=== PATIENT | male | born 1975 | race Caucasian/White ===

== ENCOUNTER 2020-11-02 09:34 | Inpatient (IN) | payer BC ==
[2020-11-02 11:28] LABS: Amphetamine Screen,Urine Not Detected (NotDetected); Barbiturate Screen,Urine Not Detected (NotDetected); Benzodiazepines Screen,Urine Not Detected (NotDetected); Cocaine Screen,Urine Not Detected (NotDetected); Methadone Screen, Urine Not Detected (NotDetected); Opiate Screen,Urine Not Detected (NotDetected); Oxycodone Screen, Urine Not Detected (NotDetected); Phencyclidine Screen,Urine Not Detected (NotDetected); Tricyclic Antidepressant,Urine Not Detected (NotDetected); Urn Cannabinoid Scrn Not Detected (NotDetected)
[2020-11-02] MEDS ORDERED: THIAMINE 100 MG/ML 2 ML VIAL IM STA (12:55)
[2020-11-02] MEDS ORDERED: LORazepam 2 MG/ML INJ IV PRN ×3 (12:55)
--- NOTE | 2020-11-02 15:04 | ED ---
Psych HPI <Allen Ceron - Last Filed: 11/02/20 19:47> - General Source: patient Mode of arrival: ambulatory <Cynthia Jon - Last Filed: 11/09/20 09:11> - General Chief Complaint: Psychiatric Symptoms Stated Complaint: EPS eval - History of Present Illness Initial Comments: Patient is a 45-year-old male who presents emergency department reporting depre ssion and suicidal ideations. Patient states he's been depressed for some time however never sought care. States he drinks alcohol daily. Normally drinks a fifth of vodka. Does admit to drinking this morning. States that he has become severely depressed over the past 3 days and does have thoughts of killing himself. Patient does not have a plan. Has never voiced is concerned to anyone. Denies any drug abuse. Did not attempt harm himself today. No other alleviating, precipitating or modifying factors (Cynthia Jon) - Related Data Previous Rx's Medication Instructions Recorded FLUoxetine HCL [PROzac] 40 mg PO DAILY 30 Days cap 11/04/20 Mirtazapine [Remeron] 7.5 mg PO HS PRN 30 Days tab 11/04/20 Allergies Allergy/AdvReac Type Severity Reaction Status Date / Time No Known Allergies Allergy Verified 11/02/20 10:18 Review of Systems ROS Other: All systems not noted in ROS Statement are negative. <CeronAllen - Last Filed: 11/02/20 19:47> ROS Other: All systems not noted in ROS Statement are negative. <Cynthia Jon - Last Filed: 11/09/20 09:11> ROS Statement: Those systems with pertinent positive or pertinent negative responses have been documented in the HPI. Past Medical History Past Medical History: No Reported History History of Any Multi-Drug Resistant Organisms: None Reported Past Surgical History: Appendectomy, Hernia Repair Past Psychological History: Depression Smoking Status: Never smoker Past Alcohol Use History: Abuse, Daily, Heavy Past Drug Use History: None Reported <Cynthia Jon - Last Filed: 11/09/20 09:11> General Exam Limitations: no limitations General appearance: alert, in no apparent distress Head exam: Present: atraumatic, normocephalic, normal inspection Eye exam: Present: normal appearance, PERRL, EOMI. Absent: scleral icterus, conjunctival injection, periorbital swelling ENT exam: Present: normal exam, mucous membranes moist Neck exam: Present: normal inspection. Absent: tenderness, meningismus, lymphadenopathy Respiratory exam: Present: normal lung sounds bilaterally. Absent: respiratory distress, wheezes, rales, rhonchi, stridor Cardiovascular Exam: Present: regular rate, normal rhythm, normal heart sounds. Absent: systolic murmur, diastolic murmur, rubs, gallop, clicks GI/Abdominal exam: Present: soft, normal bowel sounds. Absent: distended, tenderness, guarding, rebound, rigid Extremities exam: Present: normal inspection, full ROM, normal capillary refill. Absent: tenderness, pedal edema, joint swelling, calf tenderness Back exam: Present: normal inspection Neurological exam: Present: alert, oriented X3, CN II-XII intact Psychiatric exam: Present: depressed, suicidal ideation Skin exam: Present: warm, dry, intact, normal color. Absent: rash <Cynthia Jon - Last Filed: 11/09/20 09:11> Course Vital Signs 11/02/20 11/02/20 11/02/20 09:43 11:05 17:04 Temperature 98.2 F Pulse Rate 107 H 97 Respiratory 18 17 18 Rate Blood Pressure 151/94 170/17 O2 Sat by Pulse 93 L 98 Oximetry 11/02/20 18:34 Temperature Pulse Rate Respiratory 17 Rate Blood Pressure O2 Sat by Pulse Oximetry Medical Decision Making - Lab Data Result diagrams: 11/02/20 17:26 11/02/20 17:21 <Allen Ceron - Last Filed: 11/02/20 19:47> - Lab Data Result diagrams: 11/02/20 17:26 11/02/20 17:21 <Cynthia Jon - Last Filed: 11/09/20 09:11> - Medical Decision Making Patient was seen by mental health services with plan for admission (Allen Ceron) Upon arrival patient was placed into room 15. A thorough history and physical exam was performed. Patient does have an alcohol of 0.164. Patient will be sober at 2:30 for EPS evaluation (Cynthia Jon) - Lab Data Lab Results 11/02/20 11/02/20 11/02/20 Range/Units 09:59 10:55 17:21 WBC (3.8-10.6) k/uL RBC (4.30-5.90) m/uL Hgb (13.0-17.5) gm/dL Hct (39.0-53.0) % MCV (80.0-100.0) fL MCH (25.0-35.0) pg MCHC (31.0-37.0) g/dL RDW (11.5-15.5) % Plt Count (150-450) k/uL MPV Neutrophils % % Lymphocytes % % Monocytes % % Eosinophils % % Basophils % % Neutrophils # (1.3-7.7) k/uL Lymphocytes # (1.0-4.8) k/uL Monocytes # (0-1.0) k/uL Eosinophils # (0-0.7) k/uL Basophils # (0-0.2) k/uL Sodium 137 (137-145) mmol/L Potassium 3.7 (3.5-5.1) mmol/L Chloride 104 (98-107) mmol/L Carbon Dioxide 22 (22-30) mmol/L Anion Gap 11 mmol/L BUN 7 L (9-20) mg/dL Creatinine 0.69 (0.66-1.25) mg/dL Est GFR (CKD-EPI)AfAm >90 (>60 ml/min/1.73 sqM) Est GFR (CKD-EPI)NonAf >90 (>60 ml/min/1.73 sqM) Glucose 152 H (74-99) mg/dL Calcium 8.8 (8.4-10.2) mg/dL Total Bilirubin 0.8 (0.2-1.3) mg/dL AST 139 H (17-59) U/L ALT 141 H (4-49) U/L Alkaline Phosphatase 88 (38-126) U/L Total Protein 6.2 L (6.3-8.2) g/dL Albumin 3.7 (3.5-5.0) g/dL Urine Color Light Yellow Urine Appearance Clear (Clear) Urine pH 6.0 (5.0-8.0) Ur Specific [place] 1.005 (1.001-1.035) Urine Protein Negative (Negative) Urine Glucose (UA) Negative (Negative) Urine Ketones Negative (Negative) Urine Blood Negative (Negative) Urine Nitrite Negative (Negative) Urine Bilirubin Negative (Negative) Urine Urobilinogen <2.0 (<2.0) mg/dL Ur Leukocyte Esterase Negative (Negative) Urine Opiates Screen Not Detected (NotDetected) Ur Oxycodone Screen Not Detected (NotDetected) Urine Methadone Screen Not Detected (NotDetected) Ur Propoxyphene Screen Not Detected (NotDetected) Ur Barbiturates Screen Not Detected (NotDetected) U Tricyclic Antidepress Not Detected (NotDetected) Ur Phencyclidine Scrn Not Detected (NotDetected) Ur Amphetamines Screen Not Detected (NotDetected) U Methamphetamines Scrn Not Detected (NotDetected) U Benzodiazepines Scrn Not Detected (NotDetected) Urine Cocaine Screen Not Detected (NotDetected) U Marijuana (THC) Screen Not Detected (NotDetected) Coronavirus (PCR) (Not Detectd) 11/02/20 11/02/20 Range/Units 17:26 18:34 WBC 9.8 (3.8-10.6) k/uL RBC 4.78 (4.30-5.90) m/uL Hgb 16.4 (13.0-17.5) gm/dL Hct 47.0 (39.0-53.0) % MCV 98.4 (80.0-100.0) fL MCH 34.4 (25.0-35.0) pg MCHC 35.0 (31.0-37.0) g/dL RDW 12.0 (11.5-15.5) % Plt Count 252 (150-450) k/uL MPV 7.8 Neutrophils % 75 % Lymphocytes % 12 % Monocytes % 6 % Eosinophils % 5 % Basophils % 0 % Neutrophils # 7.3 (1.3-7.7) k/uL Lymphocytes # 1.2 (1.0-4.8) k/uL Monocytes # 0.6 (0-1.0) k/uL Eosinophils # 0.5 (0-0.7) k/uL Basophils # 0.0 (0-0.2) k/uL Sodium (137-145) mmol/L Potassium (3.5-5.1) mmol/L Chloride (98-107) mmol/L Carbon Dioxide (22-30) mmol/L Anion Gap mmol/L BUN (9-20) mg/dL Creatinine (0.66-1.25) mg/dL Est GFR (CKD-EPI)AfAm (>60 ml/min/1.73 sqM) Est GFR (CKD-EPI)NonAf (>60 ml/min/1.73 sqM) Glucose (74-99) mg/dL Calcium (8.4-10.2) mg/dL Total Bilirubin (0.2-1.3) mg/dL AST (17-59) U/L ALT (4-49) U/L Alkaline Phosphatase (38-126) U/L Total Protein (6.3-8.2) g/dL Albumin (3.5-5.0) g/dL Urine Color Urine Appearance (Clear) Urine pH (5.0-8.0) Ur Specific [place] (1.001-1.035) Urine Protein (Negative) Urine Glucose (UA) (Negative) Urine Ketones (Negative) Urine Blood (Negative) Urine Nitrite (Negative) Urine Bilirubin (Negative) Urine Urobilinogen (<2.0) mg/dL Ur Leukocyte Esterase (Negative) Urine Opiates Screen (NotDetected) Ur Oxycodone Screen (NotDetected) Urine Methadone Screen (NotDetected) Ur Propoxyphene Screen (NotDetected) Ur Barbiturates Screen (NotDetected) U Tricyclic Antidepress (NotDetected) Ur Phencyclidine Scrn (NotDetected) Ur Amphetamines Screen (NotDetected) U Methamphetamines Scrn (NotDetected) U Benzodiazepines Scrn (NotDetected) Urine Cocaine Screen (NotDetected) U Marijuana (THC) Screen (NotDetected) Coronavirus (PCR) Not Detected (Not Detectd) Disposition Is patient prescribed a controlled substance at d/c from ED?: No Decision Time: 19:48 <Allen Ceron - Last Filed: 11/02/20 19:47> <Cynthia Jon - Last Filed: 11/09/20 09:11> Clinical Impression: Depression Disposition: TRANSFER TO PSYCH HOSP/UNIT Condition: Stable
[2020-11-02 17:29] LABS: Basophils % (A) 0 %; Eosinophils # (A) 0.5 k/uL (0-0.7); Eosinophils % (A) 5 %; HGB 16.4 gm/dL (13.0-17.5); Lymphocytes # (A) 1.2 k/uL (1.0-4.8); Lymphocytes % (A) 12 %; MCH 34.4 pg (25.0-35.0); MCV 98.4 fL (80.0-100.0); Mean Platelet Volume 7.8; Monocytes # (A) 0.6 k/uL (0-1.0); Monocytes % (A) 6 %; Neutrophils # (A) 7.3 k/uL (1.3-7.7); Neutrophils % (A) 75 %; Platelet Count 252 k/uL (150-450); RBC 4.78 m/uL (4.30-5.90); WBC 9.8 k/uL (3.8-10.6)
[2020-11-02 17:38] LABS: ALT 141 U/L (4-49); AST 139 U/L (17-59); African American GFR (CKD) >90 (>60 ml/min/1.73 sqM); Albumin 3.7 g/dL (3.5-5.0); Alkaline Phosphatase 88 U/L (38-126); Anion Gap 11 mmol/L; Blood Urea Nitrogen 7 mg/dL (9-20); Calcium 8.8 mg/dL (8.4-10.2); Carbon Dioxide 22 mmol/L (22-30); Chloride 104 mmol/L (98-107); Glucose 152 mg/dL (74-99); Non-African American GFR(CKD) >90 (>60 ml/min/1.73 sqM); Potassium 3.7 mmol/L (3.5-5.1); Sodium 137 mmol/L (137-145); Total Bilirubin 0.8 mg/dL (0.2-1.3); Total Protein 6.2 g/dL (6.3-8.2)
[2020-11-02] MEDS: THIAMINE 100 MG TAB PO SCH (18:27)
[2020-11-02] MEDS ORDERED: chlordiazePOXIDE 25 MG CAP PO PRN (19:31)
[2020-11-02] MEDS ORDERED: LORazepam 2 MG/ML INJ IM PRN (20:06)
[2020-11-02] MEDS ORDERED: LORazepam 1 MG TAB PO PRN (20:06)
[2020-11-02] MEDS ORDERED: HALOPERIDOL LACTATE 5 MG/ML 1 ML VIAL IM PRN (20:09)
[2020-11-02] MEDS ORDERED: MAG HYDROX/AL HYDROX/SIMETH 30 ML CUP PO PRN (21:23)
[2020-11-02] MEDS ORDERED: ACETAMINOPHEN TAB 325 MG TAB PO PRN (21:23)
[2020-11-02] MEDS ORDERED: MAGNESIUM HYDROXIDE 2,400 MG/10 ML CUP PO PRN (21:23)
[2020-11-02] MEDS: NICOTINE 14MG/24HR PATCH TRANSDERM SCH (21:37)
[2020-11-02] MEDS: chlordiazePOXIDE 25 MG CAP PO SCH (21:37)
[2020-11-02 21:50] LABS: Appearance,Urine Clear (Clear); Bilirubin,Urine Negative (Negative); Blood,Urine Negative (Negative); Color,Urine Light Yellow; Glucose,Urine (UA) Negative (Negative); Ketones,Urine Negative (Negative); Leukocyte Esterase,Urine Negative (Negative); Nitrite,Urine Negative (Negative); Protein,Urine Negative (Negative); Specific Gravity,Urine 1.005 (1.001-1.035); Urobilinogen,Urine <2.0 mg/dL (<2.0)
--- NOTE | 2020-11-02 23:59 | P.CONS ---
History of Present Illness - Reason for Consult Consult date: 11/02/20 - History of Present Illness The patient is a 45-year-old male with a PMH of alcohol abuse (drinking heavily for the past 10 years, but now drinking a fifth of vodka daily since July) who presented to the emergency room with complaints of depression and suicidal ideation. He reported no particular plan but notes that he is tired of his drinking. Reported his last drink earlier today. He is open to the idea of goi ng to rehab. Denied a history of delirium tremens or alcohol withdrawal seizures. Noted feeling mildly shaky but denied additional physical complaints. Denied chest pain, shortness of breath, fever, chills, cough, nausea, vomiting, abdominal pain, diarrhea. Laboratory evaluation in the emergency room was reviewed and was remarkable for a glucose of 152, AST 139, and ALT 141. Review of Systems Pertinent positives and negatives as discussed in HPI, a complete review of systems was performed and all other systems are negative. Past Medical History Past Medical History: No Reported History History of Any Multi-Drug Resistant Organisms: None Reported Past Surgical History: Appendectomy, Hernia Repair Past Psychological History: Depression Smoking Status: Never smoker Past Alcohol Use History: Abuse, Daily, Heavy Past Drug Use History: None Reported Medications and Allergies Home Medications Medication Instructions Recorded Confirmed Type No Known Home Medications 11/02/20 11/02/20 History Allergies Allergy/AdvReac Type Severity Reaction Status Date / Time No Known Allergies Allergy Verified 11/02/20 10:18 Physical Exam Vitals: Vital Signs Temp Pulse Pulse Resp BP BP Pulse Ox 11/02/20 21:37 120 H 134/99 11/02/20 20:44 97.7 F 110 H 18 149/101 97 11/02/20 18:34 17 11/02/20 17:04 97 18 170/17 98 11/02/20 11:05 17 11/02/20 09:43 98.2 F 107 H 18 151/94 93 L Intake and Output 11/02/20 11/02/20 11/03/20 14:59 22:59 06:59 Other: Weight 90.718 kg 91 kg General: non toxic, no distress, appears at stated age, overweight Derm: no unusual rashes/lesions no unusual ecchymoses, warm, dry Head: atraumatic, normocephalic, symmetric Eyes: EOMI, no lid lag, anicteric sclera, pupils equal round reactive to light ENT: Nose and ears atraumatic, no thrush, no pharyngeal erythema Neck: No thyromegaly, no cervical lymphadenopathy, trachea midline, supple Mouth: no lip lesion, mucus membranes moist Cardiovascular: S1S2 reg, no murmur, positive posterior tibial pulse bilateral, no edema, capillary refill less than 2 seconds Lungs: CTA bilateral, no rhonchi, no rales , no accessory muscle use Abdominal: soft, nontender to palpation, no guarding, no appreciable organomegaly, normal bowel sounds Ext: no gross muscle atrophy, muscle strength 5 out of 5 in all 4 extremities grossly, no contractures, Neuro: CN II-XI grossly intact, light touch intact all 4 extremities, mild outstretched hand tremor, tongue fasciculations Psych: Alert, oriented, appropriate affect Results CBC & Chem 7: 11/02/20 17:26 11/02/20 17:21 Labs: Abnormal Lab Results - Last 24 Hours (Table) 11/02/20 Range/Units 17:21 BUN 7 L (9-20) mg/dL Glucose 152 H (74-99) mg/dL AST 139 H (17-59) U/L ALT 141 H (4-49) U/L Total Protein 6.2 L (6.3-8.2) g/dL Assessment and Plan Plan: EtOH abuse, impending withdrawal -Continue with Librium, CIWA protocol, thiamine -Monitor LFTs -Encourage oral fluid intake Depression with suicidal ideation -As per psychiatry Thank you for allowing us to participate in the care of this patient. We will follow peripherally. Do not hesitate to contact us with questions. Someone can be reached from the [facility] hospitalist group at all hours of the day at [phone].
[2020-11-03] MEDS: chlordiazePOXIDE 25 MG CAP PO SCH ×2 (08:32→20:59)
[2020-11-03] MEDS: THIAMINE 100 MG TAB PO SCH ×2 (08:32→17:32)
[2020-11-03] MEDS: NICOTINE 14MG/24HR PATCH TRANSDERM SCH (08:32)
[2020-11-03 09:25] LABS: Albumin 3.4 g/dL (3.5-5.0); Bilirubin, Delta 0.1 mg/dL (0.0-0.2); Total Bilirubin 1.1 mg/dL (0.2-1.3)
[2020-11-03 09:31] VITALS: RESP 16
[2020-11-03] MEDS ORDERED: FLUoxetine HCL 20 MG CAP PO STA (10:30)
[2020-11-03] MEDS ORDERED: MIRTAZAPINE 15 MG TAB PO PRN (10:31)
--- NOTE | 2020-11-03 11:56 | P.HP ---
Psychiatric H&P - . H&P Date: 11/03/20 History & Physical: Allergies Allergy/AdvReac Type Severity Reaction Status Date / Time No Known Allergies Allergy Verified 11/02/20 10:18 Vital Signs Temp 97.7 F 11/02/20 20:44 Pulse 118 H 11/03/20 09:00 Resp 16 11/03/20 09:00 BP 128/91 11/03/20 09:00 Pulse Ox 97 11/02/20 20:44 Intake & Output 11/02/20 11/03/20 11/03/20 18:59 06:59 18:59 Weight 90.718 kg 91 kg Laboratory Last Values WBC 9.8 k/uL (3.8-10.6) 11/02/20 17: RBC 4.78 m/uL (4.30-5.90) 11/02/20 17:26 Hgb 16.4 gm/dL (13.0-17.5) 11/02/20 17: Hct 47.0 % (39.0-53.0) 11/02/20 17: MCV 98.4 fL (80.0-100.0) 11/02/20 17: MCH 34.4 pg (25.0-35.0) 11/02/20 17: MCHC 35.0 g/dL (31.0-37.0) 11/02/20 17: RDW 12.0 % (11.5-15.5) 11/02/20 17:26 Plt Count 252 k/uL (150-450) 11/02/20 17: MPV 7.8 11/02/20 17: Neutrophils % 75 % 11/02/20 17: Lymphocytes % 12 % 11/02/20 17: Monocytes % 6 % 11/02/20 17: Eosinophils % 5 % 11/02/20 17: Basophils % 0 % 11/02/20 17: Neutrophils # 7.3 k/uL (1.3-7.7) 11/02/20 17: Lymphocytes # 1.2 k/uL (1.0-4.8) 11/02/20 17: Monocytes # 0.6 k/uL (0-1.0) 11/02/20 17: Eosinophils # 0.5 k/uL (0-0.7) 11/02/20 17:26 Basophils # 0.0 k/uL (0-0.2) 11/02/20 17:26 Sodium 137 mmol/L (137-145) 11/02/20 17:21 Potassium 3.7 mmol/L (3.5-5.1) 11/02/20 17:21 Chloride 104 mmol/L (98-107) 11/02/20 17:21 Carbon Dioxide 22 mmol/L (22-30) 11/02/20 17:21 Anion Gap 11 mmol/L 11/02/20 17:21 BUN 7 mg/dL (9-20) L 11/02/20 17:21 Creatinine 0.69 mg/dL (0.66-1.25) 11/02/20 17:21 Est GFR (CKD-EPI)AfAm >90 (>60 ml/min/1.73 sqM) 11/02/20 17: Est GFR (CKD-EPI)NonAf >90 (>60 ml/min/1.73 sqM) 11/02/20 17:21 Glucose 152 mg/dL (74-99) H 11/02/20 17:21 Calcium 8.8 mg/dL (8.4-10.2) 11/02/20 17:21 Total Bilirubin 1.1 mg/dL (0.2-1.3) 11/03/20 06:49 Conjugated Bilirubin 0.0 mg/dL (0.0-0.3) 11/03/20 06:49 Unconjugated Bilirubin 1.0 mg/dL (0.0-1.1) 11/03/20 06:49 Delta Bilirubin 0.1 mg/dL (0.0-0.2) 11/03/20 06:49 AST 84 U/L (17-59) H 11/03/20 06:49 ALT 127 U/L (4-49) H 11/03/20 06:49 Alkaline Phosphatase 108 U/L (38-126) 11/03/20 06:49 Total Protein 6.0 g/dL (6.3-8.2) L 11/03/20 06:49 Albumin 3.4 g/dL (3.5-5.0) L 11/03/20 06:49 Triglycerides 45 mg/dL (<150) 11/03/20 06:49 Cholesterol 153 mg/dL (<200) 11/03/20 06:49 LDL Cholesterol, Calc 80 mg/dL (0-99) 11/03/20 06:49 HDL Cholesterol 64 mg/dL (40-60) H 03 06:49 TSH 1.590 mIU/L (0.465-4.680) 03 06:49 Urine Color Light Yellow 11/02/20 09:59 Urine Appearance Clear (Clear) 11/02/20 09:59 Urine pH 6.0 (5.0-8.0) 11/02/20 09:59 Ur Specific [place] 1.005 (1.001-1.035) 11/02/20 09:59 Urine Protein Negative (Negative) 11/02/20 09:59 Urine Glucose (UA) Negative (Negative) 11/02/20 09:59 Urine Ketones Negative (Negative) 11/02/20 09:59 Urine Blood Negative (Negative) 11/02/20 09:59 Urine Nitrite Negative (Negative) 11/02/20 09:59 Urine Bilirubin Negative (Negative) 11/02/20 09:59 Urine Urobilinogen <2.0 mg/dL (<2.0) 11/02/20 09:59 Ur Leukocyte Esterase Negative (Negative) 11/02/20 09:59 Urine Opiates Screen Not Detected (NotDetected) 11/02/20 10:55 Ur Oxycodone Screen Not Detected (NotDetected) 11/02/20 10:55 Urine Methadone Screen Not Detected (NotDetected) 11/02/20 10:55 Ur Propoxyphene Screen Not Detected (NotDetected) 11/02/20 10:55 Ur Barbiturates Screen Not Detected (NotDetected) 11/02/20 10:55 U Tricyclic Antidepress Not Detected (NotDetected) 11/02/20 10:55 Ur Phencyclidine Scrn Not Detected (NotDetected) 11/02/20 10:55 Ur Amphetamines Screen Not Detected (NotDetected) 11/02/20 10:55 U Methamphetamines Scrn Not Detected (NotDetected) 11/02/20 10:55 U Benzodiazepines Scrn Not Detected (NotDetected) 11/02/20 10:55 Urine Cocaine Screen Not Detected (NotDetected) 11/02/20 10:55 U Marijuana (THC) Screen Not Detected (NotDetected) 11/02/20 10:55 Coronavirus (PCR) Not Detected (Not Detectd) 11/02/20 18:34 11/03/20 11:44 IDENTIFYING DATA: Patient is a , employed, 45-year-old male who presented to the emergency department for worsening depression and suicidal ideation in the context of heavy alcohol use. HPI: Patient presented to the hospital on 11/02/2020, brought in by himself with a chief complaint of increased depression, suicidal ideation, and heavy alcohol use. The patient states that he has not been feeling well over the past 2 years. He reports that 2 years ago he has become estranged from his family on his father's side after that family were defending his father after he was charged with pedophilia. He states that his depression has been significantly worse ever since this past August. He reports significantly low mood, feelings of hopelessness, helplessness, low appetite, low motivation, low energy as well as suicidal ideation. He reports having plans of hanging himself or using a gun. He denies any prior attempts at suicide. The patient states that he wants to live so that he can be better for himself, his family, and his children. The patient reports that he has been drinking heavily since this past August. He reports drinking up to a fifth of liquor per day on average. When asked what triggers him to drink further, the patient states that it helps him with his elevated anxiety. The patient endorses significant anxiety and panic attacks. He reports feeling overwhelmed. The patient does not endorse any significant symptoms of bipolar disorder. He denies any periods of excessive energy, increased goal directed activity, grandiosity, pressured speech, or mood lability. He denies any history of auditory or visual hallucinations. He denies any paranoia or delusions. In regards to substance abuse, the patient reports that he began drinking at age 14 foot began drinking heavily when he was 21 and going to college. He reports prior to these past holidays, he was drinking approximately 5 beers per week. He states that since the holidays, he has been drinking up to a fifth of hard liquor per day. He denies any prior rehabilitation for substance abuse. He states that he has begun experiencing some withdrawal symptoms including tremors, nausea, and tachycardia. The patient states that he wants to quit alcohol for his family. He denies any marijuana use or illicit drug use. He reports he tried cocaine 12 years ago. He does state that he chews tobacco and goes through about a tin a day. PAST PSYCHIATRIC HISTORY: Patient states that he has never been formally diagnosed with any mental illness. The patient has tried Xanax in the past but stated that he did not like the feeling of the medication. Patient denies any previous psychiatric hospitalizations. Patient denies any psychiatric outpatient follow-up. Patient denies any history of suicide attempts in the past. PMH: Past Medical History: No Reported History History of Any Multi-Drug Resistant Organisms: None Reported Past Surgical History: Appendectomy, Hernia Repair ALLERGIES: NO KNOWN DRUG ALLERGIES CHEMICAL DEPENDENCY HISTORY: as per HPI FAMILY PSYCHIATRIC/SUBSTANCE USE HISTORY: Patient reports no significant family history of substance abuse or psychiatric illness. He does suspect that a maternal aunt may have committed suicide. SOCIAL HISTORY: Patient was born in [place], and raised in [place], [place]. The patient has been for 15 years to his came. I have an 11-year-old daughter and a 1-year-old son both born through IVF. He graduated college. 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 His family also owns a dog and 2 guinea pigs. He denies any history of legal issues. He denies any history. MENTAL STATUS EXAM: General Appearance: Patient appears to be stated age is alert, directable, and attempts to cooperate. Patient appears to have fair hygiene and grooming. The patient is bald with a well kept enriquez. He has tattooonhisleftforearm. Behavior: Patient is seated without any agitated behavior. psychomotor activity appears slightly elevated. Speech: Patient's speech is fluent and nonpressured. Normal tone, volume, and spontaneous. Mood/Affect: Patient reports their mood is depressed, affect is congruent and constricted. Suicidality/Homicidality: Patient denies having any homicidal ideation intent or plan. Denies any suicidal ideations intent or plan Perceptions: Patient denies any visual hallucinations and denies any auditory hallucinations Though content/process: There is no evidence of any delusional thought content and thought process is linear and goal-directed. Memory and concentration: AOX3, grossly intact for the purposes of this session. Can spell "WORLD" backwards Judgment and insight: poor STRENGTHS/WEAKNESSES: Strength is that the patient has a supportive family, is gainfully employed, is financially stable, and has a high level of education. Weakness is that patient engages in heavy alcohol abuse. INTELLECT: average IMPRESSIONS: Major depressive disorder, recurrent, severe, with anxious features Alcohol use disorder Nicotine dependence PLAN: -Patient is admitted under voluntary status to [facility] for stabilization of psychiatric symptoms and safety. Patient signed adult voluntary form and medication consent and is placed in patient's chart. -Medications : Will start patient on Prozac 20 mg by mouth daily for depression/anxiety Remeron 7.5 mg by mouth at bedtime when necessary for insomnia/depression We'll decrease Librium to 25 mg by mouth twice a day for management of alcohol withdrawal -Ativan and Haldol PRN for agitation/aggression -CIWA protocol with Ativan PRN for ETOH withdrawal -Patient was counselled on substance abuse and desired to cut back on use -Patient was informed of the risks, benefits and side effects of the medication and patient verbally consented to taking the medications. Patient signed med consent form and was placed in chart. -Internal Medicine consult to perform medical evaluation and physical. -NRT - nicotine patch -SW on board for discharge planning. Encourage patient to participate in groups to work on coping skills. 11/03/20 11:55
[2020-11-04 06:22] VITALS: TEMP 97.9
[2020-11-04] MEDS: chlordiazePOXIDE 25 MG CAP PO SCH (08:34)
[2020-11-04] MEDS: NICOTINE 14MG/24HR PATCH TRANSDERM SCH (08:34)
[2020-11-04] MEDS: THIAMINE 100 MG TAB PO SCH (08:35)
[2020-11-04 08:38] VITALS: BP 134/92; PULSE 94
[2020-11-04] MEDS ORDERED: FLUoxetine HCL 10 MG CAP PO SCH (09:00)
--- NOTE | 2020-11-04 10:27 | P.DS ---
Providers Date of admission: 11/02/20 19:55 Expected date of discharge: 11/04/20 Attending physician: Rohan Hoyos MD Consults: 11/02/20 21:23 Consult Physician Routine Consulting Provider: Eliud Hernandes Consult Reason/Comments: Medical H and P Do you want consulting provider notified?: Yes Primary care physician: Stated None - Discharge Diagnosis(es) (1) Major depressive disorder Current Visit: Yes Status: Acute Priority: High (2) Alcohol use disorder Current Visit: Yes Status: Chronic Priority: Medium (3) Nicotine dependence Current Visit: Yes Status: Chronic Priority: Medium Hospital Course: Admission HPI: Patient is a , employed, 45-year-old male who presented to the emergency department for worsening depression and suicidal ideation in the context of heavy alcohol use. Patient presented to the hospital on 11/02/2020, brought in by himself with a chief complaint of increased depression, suicidal ideation, and heavy alcohol use. The patient states that he has not been feeling well over the past 2 years. He reports that 2 years ago he has become estranged from his family on his father's side after that family were defending his father after he was charged with pedophilia. He states that his depression has been significantly worse ever since this past August. He reports significantly low mood, feelings of hopelessness, helplessness, low appetite, low motivation, low energy as well as suicidal ideation. He reports having plans of hanging himself or using a gun. He denies any prior attempts at suicide. The patient states that he wants to live so that he can be better for himself, his family, and his children. The patient reports that he has been drinking heavily since this past August. He reports drinking up to a fifth of liquor per day on average. When asked what triggers him to drink further, the patient states that it helps him with his elevated anxiety. The patient endorses significant anxiety and panic attacks. He reports feeling overwhelmed. The patient does not endorse any significant symptoms of bipolar disorder. He denies any periods of excessive energy, increased goal directed activity, grandiosity, pressured speech, or mood lability. He denies any history of auditory or visual hallucinations. He denies any paranoia or delusions. In regards to substance abuse, the patient reports that he began drinking at age 14 foot began drinking heavily when he was 21 and going to college. He reports prior to these past holidays, he was drinking approximately 5 beers per week. He states that since the holidays, he has been drinking up to a fifth of hard liquor per day. He denies any prior rehabilitation for substance abuse. He states that he has begun experiencing some withdrawal symptoms including tremors, nausea, and tachycardia. The patient states that he wants to quit a lcohol for his family. He denies any marijuana use or illicit drug use. He reports he tried cocaine 12 years ago. He does state that he chews tobacco and goes through about a tin a day. Hospital course: Upon admission to the unit patient was initially presenting with elevated anxiety and symptoms of depression. Patient was however directable and agreeable to commence treatment. The patient was started on Prozac for management of depression/anxiety and Remeron for insomnia. The patient also participated in group and individual therapy. Patient was also seen by the medical team for history and physical exam. He was placed on Librium for alcohol withdrawal. The patient tolerated his medications well. The following day, the patient expressed that this hospitalization was not quite what he expected. He was a voluntary admit and feels like he would benefit more from an outpatient psychiatric treatment. The patient expressed that although the medications did appear to be beneficial with regards to sleep, he felt that the milieu was not conducive to his mental health. On the day of discharge, the patient is not endorsing any suicidal or homicidal ideation, intention, and/or plan. He reports that his family were able to lock up his firearms and prevent him from accessing them. He is not reporting any auditory or visual hallucinations. She is denying any paranoia or delusions. The patient was counseled at length on his substance abuse, in particular his alcohol use and how it may contribute to worsening depression and elevated anxiety. The patient was also counseled that should he feel suicidal, that he would be asked for him to return to the emergency department if he was at imminent risk of harm to self or others. We discussed at length that him committing suicide would increase the risk of harm to his children by suicide. The patient expresses that he would like to live for himself, his family, and his family's future. The patient was counseled on the medications and the need for regular compliance. He was encouraged to follow-up with his outpatient appointment for mental health and for primary care. Prior to discharge, family meeting will be arranged by social worker school to answer any questions and ensure safety. Mental status exam: General Appearance: Patient appears to be stated age is alert, pleasant, and cooperative. Patient is in no acute distress and has fair hygiene and grooming. The patient has noticeable tattoo of an Blanco on his left forearm. He is bald and wearing classes. Behavior: Patient is calmly seated without any agitated behavior. Psychomotor activity appears normal. Speech: Patient's speech is fluent and nonpressured. Mood/Affect: Patient reports their mood is "this is not for me", affect is euthymic. Suicidality/Homicidality: Patient denies having any suicidal or homicidal ideation intent or plan. Perceptions: Patient denies any auditory or visual hallucinations. Though content/process: There is no evidence of any delusional thought content and thought process is linear and goal-directed. Patient is future oriented. Memory and concentration: AOX3, grossly intact for the purposes of this session. Can spell "WORLD" backwards correctly. Judgment and insight: Improved with guarded prognosis Impression: Major depressive disorder, recurrent, severe, with anxious features Alcohol use disorder Nicotine dependence Plan: -Continue with discharge today as patient has improved and stabilized psychiatrically and is not currently an imminent threat to himself and/or others. Patient will remain at chronically elevated risk for harm to self and/or others due to his alcohol abuse. Although the patient's stay was short, he is a voluntary admit and is very future oriented with significant support. Despite his risk factors of gender and alcohol use, he has multiple protective factors including a very supportive family, financial stability, no prior attempts at suicide, children and future orientation. -Continue medications: Prozac 40 mg by mouth daily for depression/anxiety Remeron 7.5 mg by mouth at bedtime when necessary for insomnia/depression Librium was discontinued prior to discharge. CIWA score was 0. -Patient was counseled on the need for medication compliance and appropriate follow-up at mental health and also primary care for medical issues. Patient verbalized understanding and agreed. -Social work to arrange for and conduct family meeting to ensure safety upon discharge and answer any questions/concerns. Social work also to arrange for patients follow up appointments for psychiatric care along with follow up with primary care provider. -Patient counseled on abstaining from recreational drugs and marijuana and alcohol. Was informed/educated on the adverse effects on their physical and mental health. Patient verbally agreed and understood. Patient was offered substance abuse treatment however declined at this time. -Patient was instructed to return to the hospital or seek immediate medical care if their psychiatric or medical symptoms do worsen or reoccur. -Psychoeducation and supportive therapy provided to patient. Risks and benefits of pharmacological treatment versus the risks and benefits of nontreatment weight and discussed. Informed consent discussion held. Common side effects of psychotropics discussed such as, but not limited to headache, GI disturbance, sexual dysfunction, movement disorders, sedation, and orthostatic hypotension. Life threatening and blackbox warnings of prescribed medications also discussed. Potential risks of operating a vehicle or heavy machinery discussed with patient at length. Advised on importance of compliance and a reliable and responsible manner. Patient advised to review FDA consumer labeling of all medications prior to taking. Patient verbalized understanding of potential risks, and agrees with current treatment plan. Patient advised to medically contact physician/emergency personnel if any acute changes in condition occur. Allergies Allergy/AdvReac Type Severity Reaction Status Date / Time No Known Allergies Allergy Verified 11/02/20 10:18 Laboratory Results WBC 9.8 k/uL (3.8-10.6) 11/02/20: RBC 4.78 m/uL (4.30-5.90) 11/02/20 17: Hgb 16.4 gm/dL (13.0-17.5) 11/02/20: Hct 47.0 % (39.0-53.0) 11/02/20: MCV 98.4 fL (80.0-100.0) 11/02/20 17: MCH 34.4 pg (25.0-35.0) 11/02/20: MCHC 35.0 g/dL (31.0-37.0) 11/02/20: RDW 12.0 % (11.5-15.5) 11/02/20 17: Plt Count 252 k/uL (150-450) 11/02/20 17: MPV 7.8 11/02/20 17: Neutrophils % 75 % 11/02/20: Lymphocytes % 12 % 03/10/21 17:26 Monocytes % 6 % 11/02/20 17: Eosinophils % 5 % 11/02/20 17: Basophils % 0 % 11/02/20 17: Neutrophils # 7.3 k/uL (1.3-7.7) 11/02/20 17: Lymphocytes # 1.2 k/uL (1.0-4.8) 11/02/20 17: Monocytes # 0.6 k/uL (0-1.0) 11/02/20 17: Eosinophils # 0.5 k/uL (0-0.7) 11/02/20 17: Basophils # 0.0 k/uL (0-0.2) 11/02/20 17: Sodium 137 mmol/L (137-145) 11/02/20 17: Potassium 3.7 mmol/L (3.5-5.1) 11/02/20 17: Chloride 104 mmol/L (98-107) 11/02/20 17: Carbon Dioxide 22 mmol/L (22-30) 11/02/20 17: Anion Gap 11 mmol/L 11/02/20 17:21 BUN 7 mg/dL (9-20) L 11/02/20 17: Creatinine 0.69 mg/dL (0.66-1.25) 11/02/20 17:21 Est GFR (CKD-EPI)AfAm >90 (>60 ml/min/1.73 sqM) 11/02/20 17: Est GFR (CKD-EPI)NonAf >90 (>60 ml/min/1.73 sqM) 11/02/20 17: Glucose 152 mg/dL (74-99) H 11/02/20 17:[address] Glu mg/dL 105 11/03/20 06:49 Hemoglobin A1c 5.3 % (4.0-6.0) 11/03/20 06:49 Calcium 8.8 mg/dL (8.4-10.2) 11/02/20 17:21 Total Bilirubin 1.1 mg/dL (0.2-1.3) 11/03/20 06:49 Conjugated Bilirubin 0.0 mg/dL (0.0-0.3) 11/03/20 06:49 Unconjugated Bilirubin 1.0 mg/dL (0.0-1.1) 11/03/20 06:49 Delta Bilirubin 0.1 mg/dL (0.0-0.2) 11/03/20 06:49 AST 84 U/L (17-59) H 11/03/20 06:49 ALT 127 U/L (4-49) H 11/03/20 06:49 Alkaline Phosphatase 108 U/L (38-126) 11/03/20 06:49 Total Protein 6.0 g/dL (6.3-8.2) L 11/03/20 06:49 Albumin 3.4 g/dL (3.5-5.0) L 11/03/20 06:49 Triglycerides 45 mg/dL (<150) 11/03/20 06:49 Cholesterol 153 mg/dL (<200) 11/03/20 06:49 LDL Cholesterol, Calc 80 mg/dL (0-99) 11/03/20 06:49 HDL Cholesterol 64 mg/dL (40-60) H 11/03/20 06:49 TSH 1.590 mIU/L (0.465-4.680) 03 06:49 Urine Color Light Yellow 11/02/20 09:59 Urine Appearance Clear (Clear) 11/02/20 09:59 Urine pH 6.0 (5.0-8.0) 11/02/20 09:59 Ur Specific [place] 1.005 (1.001-1.035) 11/02/20 09:59 Urine Protein Negative (Negative) 11/02/20 09:59 Urine Glucose (UA) Negative (Negative) 11/02/20 09:59 Urine Ketones Negative (Negative) 11/02/20 09:59 Urine Blood Negative (Negative) 11/02/20 09:59 Urine Nitrite Negative (Negative) 11/02/20 09:59 Urine Bilirubin Negative (Negative) 11/02/20 09:59 Urine Urobilinogen <2.0 mg/dL (<2.0) 11/02/20 09:59 Ur Leukocyte Esterase Negative (Negative) 11/02/20 09:59 Urine Opiates Screen Not Detected (NotDetected) 11/02/20 10:55 Ur Oxycodone Screen Not Detected (NotDetected) 11/02/20 10:55 Urine Methadone Screen Not Detected (NotDetected) 11/02/20 10:55 Ur Propoxyphene Screen Not Detected (NotDetected) 11/02/20 10:55 Ur Barbiturates Screen Not Detected (NotDetected) 11/02/20 10:55 U Tricyclic Antidepress Not Detected (NotDetected) 11/02/20 10:55 Ur Phencyclidine Scrn Not Detected (NotDetected) 11/02/20 10:55 Ur Amphetamines Screen Not Detected (NotDetected) 11/02/20 10:55 U Methamphetamines Scrn Not Detected (NotDetected) 11/02/20 10:55 U Benzodiazepines Scrn Not Detected (NotDetected) 11/02/20 10:55 Urine Cocaine Screen Not Detected (NotDetected) 11/02/20 10:55 U Marijuana (THC) Screen Not Detected (NotDetected) 11/02/20 10:55 Coronavirus (PCR) Not Detected (Not Detectd) 11/02/20 18:34 Vital Signs Temp 97.9 F 11/04/20 06:08 Pulse 94 11/04/20 08:38 Resp 16 11/04/20 08:38 BP 134/92 11/04/20 08:38 Pulse Ox 97 11/02/20 20:44 Patient Condition at Discharge: Stable Plan - Discharge Summary Discharge Rx Participant: No New Discharge Prescriptions: New FLUoxetine HCL [PROzac] 40 mg PO DAILY 30 Days cap Mirtazapine [Remeron] 7.5 mg PO HS PRN 30 Days tab PRN Reason: insomnia Discharge Medication List FLUoxetine HCL [PROzac] 40 mg PO DAILY 30 Days cap 11/04/20 [Rx] Mirtazapine [Remeron] 7.5 mg PO HS PRN 30 Days tab 11/04/20 [Rx] Follow up Appointment(s)/Referral(s): Jeison Carvalho [Other] - 11/15/20 8:45 am (Lv Carvalho will call with earlier appointment for intake. 11/17 @ 16:30 With Ellen Russo by phone) None,Stated [Primary Care Provider] - 1-2 days Activity/Diet/Wound Care/Special Instructions: Activity and diet as tolerated. Avoid the use of street drugs and alcohol. Take all medications as prescribed. When you are in need of refills on your medications please contact your medical provider and/or outpatient psychiatrist to have this done. Please go to scheduled outpatient appointment for aftercare treatment. If symptoms return or become worse, call the crisis line at and/or go to the nearest emergency room for evaluation. Discharge Disposition: HOME SELF-CARE
[2020-11-05] MEDS ORDERED: chlordiazePOXIDE 25 MG CAP PO SCH (09:00)
== END 2020-11-04 13:40 | disposition home or self-care (01) | DRG 885 ==
LOC: EC 09:34 → 3MHU 19:55
PROVIDERS: ADMIT Psychiatry & Neurology Psychiatry; ATTEND Psychiatry & Neurology Psychiatry
DX: F33.2 Major depressive disorder, recurrent severe without psychotic features (principal); R45.851 Suicidal ideations; F10.130 Alcohol abuse with withdrawal, uncomplicated; Z20.822 Contact with and (suspected) exposure to COVID-19; F41.9 Anxiety disorder, unspecified; G47.00 Insomnia, unspecified; F17.200 Nicotine dependence, unspecified, uncomplicated; F41.0 Panic disorder [episodic paroxysmal anxiety]; Y90.6 Blood alcohol level of 120-199 mg/100 ml; Z63.8 Other specified problems related to primary support group; Z90.49 Acquired absence of other specified parts of digestive tract; Z98.890 Other specified postprocedural states
CPT/HCPCS: 36415; 80053; 80061; 80076; 80306; 81003; 82075; 83036; 84443; 85025; 87635; 96374; 99285

== ENCOUNTER 2023-01-24 11:10 | Inpatient (IN) | payer BC, OTHER ==
[2023-01-24] MEDS ORDERED: SODIUM CHLORIDE 0.9% 1,000 ML IV STA ×2 (11:33)
[2023-01-24] MEDS ORDERED: THIAMINE 100 MG/ML 2 ML VIAL IM STA (11:34)
[2023-01-24] MEDS ORDERED: LORazepam 1 MG TAB PO PRN ×2 (11:34)
[2023-01-24] MEDS ORDERED: METOCLOPRAMIDE 5 MG/ML 2 ML VIAL IVP STA (12:00)
[2023-01-24 12:19] LABS: HCT 48.1 % (39.0-53.0); HGB 16.8 gm/dL (13.0-17.5); MCH 33.8 pg (25.0-35.0); MCV 96.6 fL (80.0-100.0); Mean Platelet Volume 9.8; Platelet Count 112 k/uL (150-450); RBC 4.98 m/uL (4.30-5.90); RDW 13.1 % (11.5-15.5); WBC 16.3 k/uL (3.8-10.6)
[2023-01-24] MEDS: LORazepam 1 MG TAB PO PRN ×3 (12:19→19:32)
[2023-01-24 12:29] LABS: ALT 62 U/L (4-49); AST 98 U/L (17-59); African American GFR (CKD) >90 (>60 ml/min/1.73 sqM); Albumin 4.2 g/dL (3.5-5.0); Alkaline Phosphatase 129 U/L (38-126); Anion Gap 24 mmol/L; Blood Urea Nitrogen 12 mg/dL (9-20); Calcium 8.5 mg/dL (8.4-10.2); Carbon Dioxide 23 mmol/L (22-30); Chloride 82 mmol/L (98-107); Glucose 230 mg/dL (74-99); Magnesium 1.3 mg/dL (1.6-2.3); Non-African American GFR(CKD) >90 (>60 ml/min/1.73 sqM); Potassium 3.2 mmol/L (3.5-5.1); Sodium 129 mmol/L (137-145); Total Bilirubin 1.8 mg/dL (0.2-1.3); Total Protein 6.9 g/dL (6.3-8.2)
[2023-01-24 12:35] LABS: Alcohol 149 mg/dL
[2023-01-24 12:52] LABS: Lipase 3748 U/L (23-300)
[2023-01-24] MEDS ORDERED: POTASSIUM CHLORIDE ER 20 MEQ TAB.ER PO STA (13:05)
[2023-01-24 13:10] LABS: Band Neutrophils % 5 %; Lymphocytes # (M) 0.33 k/uL (1.0-4.8); Monocytes # (M) 2.12 k/uL (0-1.0); Neutrophils % (M) 80 %; Nucleated Red Blood Cells 0 /100 WBC (0-0); RBC Morphology Normal; Total Cells Counted 100
--- NOTE | 2023-01-24 13:22 | ED ---
Alcohol HPI - General Chief Complaint: Alcohol Stated Complaint: ETOH Time Seen by Provider: 01/24/23 11:17 Source: patient, EMS, RN notes reviewed Mode of arrival: EMS Limitations: no limitations - History of Present Illness Initial Comments: 47-year-old male presents emergency Department chief complaint of alcohol withdrawal, dehydration. Patient states that he recently relapsed on alcohol states she's been drinking at least 1/5 per day states he tried several drinking since yesterday but states this withdrawal symptoms are to severe she drank some alcohol this morning. He does admit that he's had seizures in the past he has been in rehab he states he wants to stop taking again. Patient does complain of abdominal discomfort. Patient denies any reports of fevers. - Related Data Previous Rx's Medication Instructions Recorded FLUoxetine HCL [PROzac] 40 mg PO DAILY 30 Days cap 11/04/20 Mirtazapine [Remeron] 7.5 mg PO HS PRN 30 Days tab 11/04/20 Allergies Allergy/AdvReac Type Severity Reaction Status Date / Time No Known Allergies Allergy Verified 01/24/23 11:21 Review of Systems ROS Statement: Those systems with pertinent positive or pertinent negative responses have been documented in the HPI. ROS Other: All systems not noted in ROS Statement are negative. Past Medical History Past Medical History: Hypertension History of Any Multi-Drug Resistant Organisms: None Reported Past Surgical History: Appendectomy, Hernia Repair Past Psychological History: Depression Smoking Status: Never smoker Past Alcohol Use History: Abuse, Daily, Heavy Past Drug Use History: None Reported General Exam Limitations: no limitations General appearance: alert, in no apparent distress Head exam: Present: atraumatic, normocephalic, normal inspection Eye exam: Present: normal appearance, PERRL, EOMI. Absent: scleral icterus, conjunctival injection, periorbital swelling ENT exam: Present: mucous membranes dry. Absent: normal exam, normal oropharynx, mucous membranes moist Neck exam: Present: normal inspection, full ROM. Absent: tenderness, meningismus, lymphadenopathy Respiratory exam: Present: normal lung sounds bilaterally. Absent: respiratory distress, wheezes, rales, rhonchi, stridor Cardiovascular Exam: Present: normal rhythm, tachycardia, normal heart sounds. Absent: systolic murmur, diastolic murmur, rubs, gallop, clicks GI/Abdominal exam: Present: soft, tenderness, normal bowel sounds. Absent: distended, guarding, rebound, rigid Course Vital Signs 01/24/23 01/24/23 01/24/23 11:12 11:40 12:09 Temperature 97.9 F Pulse Rate 106 H 105 H Respiratory 18 18 Rate Blood Pressure 147/92 130/88 138/89 O2 Sat by Pulse 94 L 95 Oximetry Medical Decision Making - Medical Decision Making Was pt. sent in by a medical professional or institution (, [facility], PCA, urgent care, hospital, or usp...) When possible be specific @ -No Did you speak to anyone other than the patient for history (EMS, parent, family, police, friend...)? What history was obtained from this source @ -EMS, family in the room providing past medical history Did you review nursing and triage notes (agree or disagree)? Why? @ -I reviewed and agree with nursing and triage notes Were old charts reviewed (outside hosp., previous admission, EMS record, old EKG, old radiological studies, urgent care reports/EKG's, usp records)? Report findings @ -No old charts were reviewed Differential Diagnosis (chest pain, altered mental status, abdominal pain women, abdominal pain men, vaginal bleeding, weakness, fever, dyspnea, syncope, headache, dizziness, GI bleed, back pain, seizure, CVA, palpatations, mental health, musculoskeletal)? @ -Differential Abdominal Pain Men: Appendicitis, cholecystitis, diverticulosis, ischemic bowel, pancreatitis, hepatitis, UTI, gastroenteritis, AAA, incarcerated hernia, bowel obstruction, constipation, inflammatory bowel, hepatitis, peptic ulcer disease, splenic infarction, perforated viscus, testicular torsion, this is not meant to be an all-inclusive listble EKG interpreted by me (3pts min.). @ -None X-rays interpreted by me (1pt min.). @ -None done CT interpreted by me (1pt min.). @ -None done U/S interpreted by me (1pt. min.). @ -None done What testing was considered but not performed or refused? (CT, X-rays, U/S, labs)? Why? @ -None What meds were considered but not given or refused? Why? @ -None Did you discuss the management of the patient with other professionals (professionals i.e. , [facility], PCA, lab, RT, psych nurse, social worker assistant, network control operators supervisor, teacher, chief privacy officer, block and case maker)? Give summary @ - she for admission secondary to alcohol withdrawal syndrome, hypomagnesemia, acute pancreatitis Was smoking cessation discussed for >3mins.? @ -No Was critical care preformed (if so, how long)? @ -No Were there social determinants of health that impacted care today? How? (Homelessness, low income, unemployed, alcoholism, drug addiction, transportation, low edu. Level, literacy, decrease access to med. care, fdc, rehab)? @ -No Was there de-escalation of care discussed even if they declined (Discuss DNR or withdrawal of care, Hospice)? DNR status @ -No What co-morbidities impacted this encounter? (DM, HTN, Smoking, COPD, CAD, Cancer, CVA, ARF, Chemo, Hep., AIDS, mental health diagnosis, sleep apnea, morbid obesity)? @ -Alcohol abuse Was patient admitted / discharged? Hospital course, mention meds given and route, prescriptions, significant lab abnormalities, going to OR and other pertinent info. @ -Admitted patient has evidence of alcohol withdrawal syndrome, alcohol pancreatitis with hypomagnesemia, hypokalemia patient was ordered IV fluid bolus, repeat electrolyte replacement,ciwa protocol with Ativan. Undiagnosed new problem with uncertain prognosis? @ -No Drug Therapy requiring intensive monitoring for toxicity (Heparin, Nitro, Insulin, Cardizem)? @ -No Were any procedures done? @ -No Diagnosis/symptom? @ -Alcohol withdrawal syndrome, acute pancreatitis, hypomagnesemia Acute, or Chronic, or Acute on Chronic? @ -Acute Uncomplicated (without systemic symptoms) or Complicated (systemic symptoms)? @ -Complicated Side effects of treatment? @ -No Exacerbation, Progression, or Severe Exacerbation? @ -No Poses a threat to life or bodily function? How? (Chest pain, [place], [place], pneumonia, PE, COPD, DKA, ARF, appy, cholecystitis, CVA, Diverticulitis, Homicidal, Suicidal, threat to staff... and all critical care pts) @ -Yes patient's had alcohol withdrawal seizure in the past - Lab Data Result diagrams: 01/24/23 11:51 01/24/23 11:51 Lab Results 01/24/23 01/24/23 Range/Units 11:51 11:51 WBC 16.3 H (3.8-10.6) k/uL RBC 4.98 (4.30-5.90) m/uL Hgb 16.8 (13.0-17.5) gm/dL Hct 48.1 (39.0-53.0) % MCV 96.6 (80.0-100.0) fL MCH 33.8 (25.0-35.0) pg MCHC 35.0 (31.0-37.0) g/dL RDW 13.1 (11.5-15.5) % Plt Count 112 L (150-450) k/uL MPV 9.8 Neutrophils % (Manual) 80 % Band Neuts % (Manual) 5 % Lymphocytes % (Manual) 2 % Monocytes % (Manual) 13 % Neutrophils # (Manual) 13.80 H (1.3-7.7) k/uL Lymphocytes # (Manual) 0.33 L (1.0-4.8) k/uL Monocytes # (Manual) 2.12 H (0-1.0) k/uL Nucleated RBCs 0 (0-0) /100 WBC Manual Slide Review Performed RBC Morphology Normal Sodium 129 L (137-145) mmol/L Potassium 3.2 L (3.5-5.1) mmol/L Chloride 82 L (98-107) mmol/L Carbon Dioxide 23 (22-30) mmol/L Anion Gap 24 mmol/L BUN 12 (9-20) mg/dL Creatinine 0.68 (0.66-1.25) mg/dL Est GFR (CKD-EPI)AfAm >90 (>60 ml/min/1.73 sqM) Est GFR (CKD-EPI)NonAf >90 (>60 ml/min/1.73 sqM) Glucose 230 H (74-99) mg/dL Calcium 8.5 (8.4-10.2) mg/dL Magnesium 1.3 L (1.6-2.3) mg/dL Total Bilirubin 1.8 H (0.2-1.3) mg/dL AST 98 H (17-59) U/L ALT 62 H (4-49) U/L Alkaline Phosphatase 129 H (38-126) U/L Total Protein 6.9 (6.3-8.2) g/dL Albumin 4.2 (3.5-5.0) g/dL Lipase 3748 H (23-300) U/L Serum Alcohol 149 mg/dL Disposition Clinical Impression: Alcohol withdrawal syndrome, Alcoholic pancreatitis, Hypomagnesemia Disposition: ADMITTED IP TO THIS HOSP Condition: Fair Referrals: None,Stated [Primary Care Provider] - 1-2 days Time of Disposition: 13:24
[2023-01-24] MEDS ORDERED: LORazepam 2 MG/ML INJ IV STA (13:33)
[2023-01-24] MEDS: MAGNESIUM SULFATE-D5W PMX 1 GM in DEXTROSE/WATER 1 100ML.BAG IVPB SCH ×2 (13:47→15:54)
[2023-01-24] MEDS: KETOROLAC 15 MG/ML 1 ML VIAL IVP PRN (18:01)
[2023-01-24] MEDS: SODIUM CHLORIDE 0.9% 1,000 ML IV SCH (18:03)
--- NOTE | 2023-01-24 18:21 | P.HPIM ---
History of Present Illness This is a pleasant 47 years old male with past medical history of hypertension, depression and alcohol use disorder. Patient is drowsy but he wakes up easily to verbal stimuli and answered questions appropriately although it looks sleepy throughout the encounter. He is oriented to time place and person, he states he came because he wanted to detox. Also has been complaining from epigastric abdominal pain about 5/10 in severity for the last 4-5 days, felt like sharp with no relieving or precipitating factors although advanced some movement. He vomited 4-6 times with no blood. He has normal bowel movement. His abdomen looks soft. However he denies any urinary neurological or cardiogenic symptoms. He does not smoke or use illicit drugs but he drinks to fifth day. Last drink was 9:30 this morning. Patient is a known history of depression however he denies any homicidal or suicidal ideation, he denies hallucination or delusions for me. He is tachycardic but not hypotensive and not febrile He has leukocytosis of 16.3, platelet count 112 is expected due to alcohol affect Sodium 129, glucose 2:30. Magnesium 1.3. AST 98 and ALT 62 and total bilirubin is elevated at 1.8 however is now INR that was ordered Review of Systems Review of systems CONSTITUTIONAL: No fever, no malaise, no fatigue. HEENT: No recent visual problems or hearing problems. Denied any sore throat. CARDIOVASCULAR: No orthopnea, PND, no palpitations, no syncope. PULMONARY: No shortness of breath, no cough, no hemoptysis. GASTROINTESTINAL: No diarrhea, . Normoactive bowel sounds. NEUROLOGICAL: No headaches, no weakness, no numbness. HEMATOLOGICAL: Denies any bleeding or petechiae. GENITOURINARY: Denies any burning micturition, frequency, or urgency. MUSCULOSKELETAL/RHEUMATOLOGICAL: Denies any joint pain, swelling, or any muscle pain. ENDOCRINE: Denies any polyuria or polydipsia. Past Medical History Past Medical History: Hypertension History of Any Multi-Drug Resistant Organisms: None Reported Past Surgical History: Appendectomy, Hernia Repair Past Psychological History: Depression Smoking Status: Never smoker Past Alcohol Use History: Abuse, Daily, Heavy Past Drug Use History: None Reported Medications and Allergies Home Medications Medication Instructions Recorded Confirmed Type Escitalopram Oxalate [Lexapro] 10 mg PO DAILY 01/24/23 01/24/23 History Folic Acid(Unknown) 1 tab PO DAILY 01/24/23 01/24/23 History Naltrexone HCl [Revia] 50 mg PO DAILY 01/24/23 01/24/23 History Propranolol [Inderal] 20 mg PO HS 01/24/23 01/24/23 History Thiamine [Vitamin B-1] 100 mg PO DAILY 01/24/23 01/24/23 History hydroCHLOROthiazide 12.5 mg PO DAILY 01/24/23 01/24/23 History Allergies Allergy/AdvReac Type Severity Reaction Status Date / Time No Known Allergies Allergy Verified 01/24/23 14:03 Physical Exam Vitals: Vital Signs Temp Pulse Resp BP Pulse Ox 01/24/23 12:09 105 H 18 138/89 01/24/23 11:40 130/88 95 01/24/23 11:12 97.9 F 106 H 18 147/92 94 L Intake and Output 01/23/23 01/24/23 01/24/23 22:59 06:59 14:59 Other: Weight 86.183 kg -GENERAL: The patient is alert and oriented x3, very drowsy but easily arousable and answered questions appropriately and follows commands not in any acute distress. Well developed, well nourished. HEENT: Pupils are round and equally reacting to light. EOMI. No scleral icterus. No conjunctival pallor. Normocephalic, atraumatic. No pharyngeal erythema. No thyromegaly. CARDIOVASCULAR: S1 and S2 present. No murmurs, rubs, or gallops. PULMONARY: Chest is clear to auscultation, no wheezing . no crackles. -ABDOMEN: Soft, mild epigastric tenderness with no guarding or rebound d tenderness, , normoactive bowel sounds. No palpable organomegaly. MUSCULOSKELETAL: No joint swelling or deformity. EXTREMITIES: No cyanosis, clubbing, or pedal edema. NEUROLOGICAL: Gross neurological examination did not reveal any focal deficits. SKIN: No rashes. no petechiae. Results CBC & Chem 7: 01/24/23 11:51 01/24/23 11:51 Labs: Abnormal Lab Results - Last 24 Hours (Table) 01/24/23 01/24/23 Range/Units 11:51 11:51 WBC 16.3 H (3.8-10.6) k/uL Plt Count 112 L (150-450) k/uL Neutrophils # (Manual) 13.80 H (1.3-7.7) k/uL Lymphocytes # (Manual) 0.33 L (1.0-4.8) k/uL Monocytes # (Manual) 2.12 H (0-1.0) k/uL Sodium 129 L (137-145) mmol/L Potassium 3.2 L (3.5-5.1) mmol/L Chloride 82 L (98-107) mmol/L Glucose 230 H (74-99) mg/dL Magnesium 1.3 L (1.6-2.3) mg/dL Total Bilirubin 1.8 H (0.2-1.3) mg/dL AST 98 H (17-59) U/L ALT 62 H (4-49) U/L Alkaline Phosphatase 129 H (38-126) U/L Lipase 3748 H (23-300) U/L Assessment and Plan Assessment: Alcohol use disorder with alcohol withdrawal at risk of delirium tremens. Limits lipase most likely secondary to alcoholic pancreatitis Mild asymptomatic alcoholic transaminitis Thrombocytopenia Hypovolemic hyponatremia depression with no suicidal ideation Plan: continue with CIWA protocol Continue with thiamine and vitamins Start normal saline 200 mL/h Check INR Follow up with psychiatrist Monitor lipase and liver enzymes closely Labs and medication were reviewed.. Continue same treatment. Continue with symptomatic treatment. Resume home medication. Monitor labs and vitals. DVT and GI prophylaxis. Further recommendations as per clinical course of the patient DVT prophylaxis: Subcutaneous heparin GI Prophylaxis: Pepcid Prognosis is guarded
[2023-01-24 19:02] LABS: INR 1.1 (<1.2); Prothrombin Time 11.4 sec (9.0-12.0)
[2023-01-24] MEDS: PROPRANOLOL 20 MG TAB PO SCH (19:32)
[2023-01-24] MEDS: FAMOTIDINE 20 MG/2 ML VIAL IV SCH (20:27)
[2023-01-24] MEDS: HEPARIN SODIUM,PORCINE/PF 5,000 UNIT/0.5 ML SYRINGE SQ SCH (20:31)
[2023-01-24] MEDS ORDERED: METOPROLOL TARTRATE 25 MG TAB PO SCH (21:00)
[2023-01-24] MEDS ORDERED: MORPHINE SULFATE 4 MG/ML SYRINGE IVP PRN (21:45)
[2023-01-25 00:11] LABS: Appearance,Urine Cloudy (Clear); Bilirubin,Urine 1+ (Negative); Blood,Urine Trace (Negative); Color,Urine Orange; Glucose,Urine (UA) 3+ (Negative); Hyaline Casts,Urine 116 /lpf (0-2); Leukocyte Esterase,Urine Negative (Negative); Mucus,Urine Many /hpf; Nitrite,Urine Negative (Negative); PH, Urine 6.5 (5.0-8.0); Protein,Urine 3+ (Negative); RBC,Urine 2 /hpf (0-5); Specific Gravity,Urine 1.036 (1.001-1.035); Squamous Epithelial Cell,Urine <1 /hpf (0-4); WBC,Urine 3 /hpf (0-5)
[2023-01-25 00:14] LABS: Ketones,Urine 3+ (Negative)
[2023-01-25 00:19] LABS: Glucose,Whole Blood 356 mg/dL (70-110)
[2023-01-25] MEDS ORDERED: DEXTROSE 50% SYRINGE 50 ML IVP PRN ×4 (00:28→00:56)
[2023-01-25] MEDS ORDERED: INSULIN DETEMIR (LEVEMIR) 100 UNIT/ML SYR SQ ONE (00:34)
[2023-01-25] MEDS ORDERED: INSULIN ASPART (NovoLOG) 100 UNIT/ML VIAL SQ ONE (00:37)
[2023-01-25] MEDS: SODIUM CHLORIDE 0.9% 1,000 ML IV SCH ×3 (00:53→23:21)
[2023-01-25] MEDS ORDERED: Potassium Replacement Protocol 1 EACH MISC MISCELLANE PRN ×2 (00:56→02:05)
[2023-01-25] MEDS ORDERED: Magnesium Replacement Protocol 1 EACH MISC MISCELLANE PRN (00:56)
[2023-01-25] MEDS ORDERED: INSULIN REGULAR BOLUS (FROM DRIP BAG) IV ONE (00:56)
[2023-01-25] MEDS ORDERED: SODIUM CHLORIDE 0.9% 1,000 ML IV SCH (01:00)
[2023-01-25] MEDS: INSULIN REGULAR 100 UNIT in SODIUM CHLORIDE 0.9% 100 ML IV SCH ×2 (01:10→12:09)
[2023-01-25 01:57] LABS: African American GFR (CKD) >90 (>60 ml/min/1.73 sqM); Anion Gap 12 mmol/L; Blood Urea Nitrogen 11 mg/dL (9-20); Carbon Dioxide 26 mmol/L (22-30); Chloride 88 mmol/L (98-107); Glucose 297 mg/dL (74-99); Non-African American GFR(CKD) >90 (>60 ml/min/1.73 sqM); Potassium 3.1 mmol/L (3.5-5.1); Sodium 126 mmol/L (137-145)
[2023-01-25 02:00] LABS: Glucose,Whole Blood 234 mg/dL (70-110)
[2023-01-25] MEDS: POTASSIUM CHLORIDE ER 20 MEQ TAB.ER PO SCH ×3 (02:11→13:19)
[2023-01-25] MEDS: D5-0.45% NACL WITH KCL 20MEQ/L 1,000 ML IV SCH ×2 (02:23→08:36)
[2023-01-25 02:38] LABS: Basophils % (A) 0 %; Eosinophils % (A) 0 %; HCT 38.3 % (39.0-53.0); Lymphocytes # (A) 0.5 k/uL (1.0-4.8); Lymphocytes % (A) 5 %; MCH 33.9 pg (25.0-35.0); MCHC 33.9 g/dL (31.0-37.0); MCV 99.9 fL (80.0-100.0); Mean Platelet Volume 10.7; Monocytes # (A) 0.5 k/uL (0-1.0); Monocytes % (A) 5 %; Neutrophils # (A) 8.5 k/uL (1.3-7.7); Neutrophils % (A) 88 %; RBC 3.83 m/uL (4.30-5.90); WBC 9.7 k/uL (3.8-10.6)
[2023-01-25 02:40] LABS: Platelet Count 83 k/uL (150-450)
[2023-01-25 03:00] LABS: Glucose,Whole Blood 188 mg/dL (70-110)
[2023-01-25 04:09] LABS: Glucose,Whole Blood 172 mg/dL (70-110)
[2023-01-25 04:57] LABS: Glucose,Whole Blood 184 mg/dL (70-110)
[2023-01-25 05:49] LABS: INR 1.1 (<1.2); Prothrombin Time 11.2 sec (9.0-12.0)
[2023-01-25 05:56] LABS: ALT 40 U/L (4-49); AST 54 U/L (17-59); African American GFR (CKD) >90 (>60 ml/min/1.73 sqM); Albumin 2.8 g/dL (3.5-5.0); Alkaline Phosphatase 96 U/L (38-126); Anion Gap 9 mmol/L; Bilirubin, Delta 0.6 mg/dL (0.0-0.2); Blood Urea Nitrogen 10 mg/dL (9-20); Calcium 7.6 mg/dL (8.4-10.2); Carbon Dioxide 30 mmol/L (22-30); Chloride 89 mmol/L (98-107); Glucose 176 mg/dL (74-99); Lipase 1564 U/L (23-300); Magnesium 1.8 mg/dL (1.6-2.3); Non-African American GFR(CKD) >90 (>60 ml/min/1.73 sqM); Potassium 3.3 mmol/L (3.5-5.1); Sodium 128 mmol/L (137-145); Total Bilirubin 1.6 mg/dL (0.2-1.3); Total Protein 5.1 g/dL (6.3-8.2)
[2023-01-25 05:57] LABS: Basophils % (A) 0 %; Eosinophils # (A) 0.1 k/uL (0-0.7); Eosinophils % (A) 1 %; HCT 37.5 % (39.0-53.0); HGB 12.9 gm/dL (13.0-17.5); Lymphocytes # (A) 0.6 k/uL (1.0-4.8); Lymphocytes % (A) 6 %; MCH 33.8 pg (25.0-35.0); MCHC 34.4 g/dL (31.0-37.0); MCV 98.2 fL (80.0-100.0); Mean Platelet Volume 11.1; Monocytes # (A) 0.9 k/uL (0-1.0); Monocytes % (A) 8 %; Neutrophils # (A) 8.3 k/uL (1.3-7.7); Neutrophils % (A) 82 %; RBC 3.82 m/uL (4.30-5.90); RDW 13.3 % (11.5-15.5); WBC 10.1 k/uL (3.8-10.6)
[2023-01-25 05:59] LABS: Phosphorus 0.6 mg/dL (2.5-4.5)
[2023-01-25] MEDS ORDERED: POTASSIUM CHLORIDE ER 20 MEQ TAB.ER PO STA ×2 (06:01→06:12)
[2023-01-25] MEDS ORDERED: Phosphorus Replacement Protoco 1 EACH MISC MISCELLANE PRN ×2 (06:01→06:11)
[2023-01-25 06:03] LABS: Glucose,Whole Blood 188 mg/dL (70-110)
[2023-01-25 06:06] LABS: Platelet Count 72 k/uL (150-450)
[2023-01-25] MEDS ORDERED: INSULIN NPH 100 UNIT/ML 10 ML VIAL SQ ONE (06:10)
[2023-01-25] MEDS ORDERED: MAGNESIUM SULFATE-D5W PMX 1 GM in DEXTROSE/WATER 1 100ML.BAG IVPB ONE ×2 (06:13→12:00)
[2023-01-25] MEDS: POTAS-SOD-PHOS 278-164-250 MG 1 EACH PACKET PO SCH ×4 (06:15→19:52)
[2023-01-25] MEDS: INSULIN ASPART (NovoLOG) 100 UNIT/ML VIAL SQ SCH ×6 (06:23→19:51)
[2023-01-25] MEDS: LORazepam 1 MG TAB PO PRN ×5 (06:26→23:14)
[2023-01-25 06:52] LABS: Glucose,Whole Blood 206 mg/dL (70-110)
[2023-01-25] MEDS ORDERED: INSULIN DETEMIR (LEVEMIR) 100 UNIT/ML SYR SQ SCH (07:00)
[2023-01-25] MEDS ORDERED: HYDROcodone/APAP 5-325MG 1 EACH TAB PO PRN (07:13)
[2023-01-25] MEDS ORDERED: INSULIN ASPART (NovoLOG) 100 UNIT/ML VIAL SQ SCH (07:30)
[2023-01-25 08:05] LABS: Glucose,Whole Blood 166 mg/dL (70-110)
[2023-01-25 08:23] LABS: RBC Morphology Normal
[2023-01-25] MEDS: FOLIC ACID 1 MG TAB PO SCH (08:35)
[2023-01-25] MEDS: KETOROLAC 15 MG/ML 1 ML VIAL IVP PRN (08:35)
[2023-01-25] MEDS: ESCITALOPRAM 10 MG TAB PO SCH (08:35)
[2023-01-25] MEDS: LORazepam 0.5 MG TAB PO PRN ×2 (08:35→13:19)
[2023-01-25] MEDS: HEPARIN SODIUM,PORCINE/PF 5,000 UNIT/0.5 ML SYRINGE SQ SCH ×2 (08:35→19:51)
[2023-01-25] MEDS: FAMOTIDINE 20 MG/2 ML VIAL IV SCH ×2 (08:35→19:52)
[2023-01-25] MEDS: THIAMINE 100 MG TAB PO SCH (08:35)
[2023-01-25] MEDS ORDERED: NALTREXONE HCL 50 MG TAB PO SCH (09:00)
[2023-01-25 09:07] LABS: Glucose,Whole Blood 138 mg/dL (70-110)
[2023-01-25 09:11] LABS: African American GFR (CKD) >90 (>60 ml/min/1.73 sqM); Anion Gap 7 mmol/L; Blood Urea Nitrogen 8 mg/dL (9-20); Carbon Dioxide 30 mmol/L (22-30); Chloride 92 mmol/L (98-107); Glucose 163 mg/dL (74-99); Non-African American GFR(CKD) >90 (>60 ml/min/1.73 sqM); Potassium 3.3 mmol/L (3.5-5.1); Sodium 129 mmol/L (137-145)
[2023-01-25 09:24] VITALS: BMI 25.7
[2023-01-25 11:55] LABS: Glucose,Whole Blood 167 mg/dL (70-110)
[2023-01-25] MEDS ORDERED: IOPAMIDOL CONTRAST (ORAL USE) VIAL PO PRN (14:22)
--- NOTE | 2023-01-25 14:46 | P.PN ---
Subjective This is a pleasant 47 years old male with past medical history of hypertension, depression and alcohol use disorder. Patient is drowsy but he wakes up easily to verbal stimuli and answered questions appropriately although it looks sleepy throughout the encounter. He is oriented to time place and person, he states he came because he wanted to det ox. Also has been complaining from epigastric abdominal pain about 5/10 in severity for the last 4-5 days, felt like sharp with no relieving or precipitating factors although advanced some movement. He vomited 4-6 times with no blood. He has normal bowel movement. His abdomen looks soft. However he denies any urinary neurological or cardiogenic symptoms. He does not smoke or use illicit drugs but he drinks to fifth day. Last drink was 9:30 this morning. Patient is a known history of depression however he denies any homicidal or suicidal ideation, he denies hallucination or delusions for me. He is tachycardic but not hypotensive and not febrile He has leukocytosis of 16.3, platelet count 112 is expected due to alcohol affect Sodium 129, glucose 2:30. Magnesium 1.3. AST 98 and ALT 62 and total bilirubin is elevated at 1.8 however is now INR that was ordered 01/25/2023 Patient clinically looks better, he is awake alert 3 he knows where his at and the date and time and person. He has insight into his illness, he follows commands, he looks his back to his baseline mental state although he still feels little tired and sleepy. He feels little groggy but no significant confusion. No headache dizziness weakness or numbness. He still complaining of from epigastric pain about 6/10 in severity, non- radiating, sharp in nature. No more vomiting. He does not have bowel movement but he was nothing by mouth overnight. I talked to the patient and he thinks he is willing to start diet but he likes to start slowly. Patient tolerated clear liquid diet, and we are going to advance to full liquid diet today. He feels little depressed and anxious No chest pain or dyspnea. He is hemodynamically stable, afebrile. Heart rate is improving down to 105 and 98. Labs showing improvement as well, WBC is down to 10.1. Sodium 129, AST and ALT are normal today while bilirubin is going down to 1.6. Lipase is coming down to 3748 down to 1564. His CIWA score is ranging between 124. Progress calcitonin is not significantly elevated at only 0.15. Last night patient was found to have what looks like diabetic ketoacidosis with an anion gap, glucosuria and ketonuria and was deficits on in the blood and he was placed on insulin drip per protocol and his abdomen and closed. Today he's sugar is controlled. Because he was nothing by mouth we stopped his Levemir. His hemoglobin A1c is interestingly normal at 5.1%. We will repeat hemoglobin A1c tomorrow. Also we will check a C-peptide. Patient informed about this sugar problem Serum phosphorus is severely low at 0.6 and his been replaced on protocol. Repeat phosphorus is still 0.6. Monitor and replace electrolytes. Sodium 129. He started on Carrington for pain control. Because of this neltrexone was discontinued. He remains on aggressive hydration. His home dose of propranolol 20 mg started yesterday. We will order CT of the abdomen psychiatric team consulted Active Medications Generic Name Dose Route Start Last Admin Trade Name Oly PRN Reason Stop Dose Admin Hydrocodone Bitart/Acetaminophen 1 each 01/25/23 07:13 Hydrocodone/Apap 5-325mg 1 Each Tab PO Q6HR PRN Pain Dextrose/Water 25 ml 01/25/23 00:28 Dextrose 50% Syringe 50 Ml IVP PER PROTOCOL PRN Hypoglycemia Protocol Dextrose/Water 50 ml 01/25/23 00:28 Dextrose 50% Syringe 50 Ml IVP PER PROTOCOL PRN Hypoglycemia Protocol Escitalopram Oxalate 10 mg 01/25/23 09:00 01/25/23 08:35 Escitalopram 10 Mg Tab PO 10 mg DAILY LOREN Administration Famotidine 20 mg 01/24/23 21:00 01/25/23 08:35 Famotidine 20 Mg/2 Ml Vial IV 20 mg Q12HR LOREN Administration Folic Acid 1 mg 01/25/23 09:00 01/25/23 08:35 Folic Acid 1 Mg Tab PO 1 mg DAILY LOREN Administration Heparin Sodium (Porcine) 5,000 unit 01/24/23 21:00 01/25/23 08:35 Heparin Sodium,Porcine/Pf 5,000 Unit/0.5 Ml Syringe SQ 5,000 unit Q12HR LOREN Administration Insulin Human Regular 100 unit 101 mls @ 8.704 mls/hr 01/25/23 01:00 01/25/23 12:09 / Sodium Chloride IV Not Given .[id number] LOREN Protocol 0.1 UNITS/KG/HR Potassium Chloride/Dextrose/Sod Cl 1,000 mls @ 150 mls/hr 01/25/23 02:00 01/25/23 08:36 D5%-1/2ns-Kcl 20 Meq/L Iv Solution IV Not Given .[id number] LOREN Insulin Aspart 9 unit 01/25/23 07:30 01/25/23 12:09 Insulin Aspart (Novolog) 100 Unit/Ml Vial 0.1 unit/kg (9 unit) 9 unit SQ Administration AC-TID LOREN Insulin Aspart 0 unit 01/25/23 07:30 01/25/23 12:10 Insulin Aspart (Novolog) 100 Unit/Ml Vial SQ 2 unit [id number] LOREN Administration Protocol Iopamidol 30 ml 01/25/23 14:22 Iopamidol Contrast (Oral Use) Vial PO 01/26/23 14:[address] Scan Ketorolac Tromethamine 15 mg 01/24/23 14:31 01/25/23 08:35 Ketorolac 15 Mg/Ml 1 Ml Vial IVP 01/29/23 14:31 15 mg Q6HR PRN Administration Pain Lorazepam 0.5 mg 01/24/23 11:34 01/25/23 13:19 Lorazepam 0.5 Mg Tab PO 0.5 mg Q4HR PRN Administration Ciwa 4 To 5 Lorazepam 2 mg 01/24/23 11:34 Lorazepam 1 Mg Tab PO Q3HR PRN Ciwa 8 To 9 Lorazepam 2 mg 01/24/23 11:34 01/24/23 19:32 Lorazepam 1 Mg Tab PO 2 mg Q2HR PRN Administration Ciwa 10 or greater Lorazepam 1 mg 01/24/23 11:34 01/25/23 06:26 Lorazepam 1 Mg Tab PO 1 mg Q4HR PRN Administration Ciwa 6 To 7 Lorazepam 1 mg 01/24/23 11:34 Lorazepam 1 Mg Tab PO Q1HR PRN Alcohol Withdrawal Miscellaneous Information 1 each 01/25/23 00:56 Magnesium Replacement Protocol 1 Each Misc MISCELLANE DAILY PRN Per Protocol Protocol Miscellaneous Information 1 each 01/25/23 00:56 Potassium Replacement Protocol 1 Each Misc MISCELLANE DAILY PRN Per Protocol Miscellaneous Information 1 each 01/25/23 06:01 Phosphorus Replacement Protoco 1 Each Misc MISCELLANE DAILY PRN Per Protocol Protocol Morphine Sulfate 4 mg 01/24/23 21:45 01/24/23 22:17 Morphine Sulfate 4 Mg/Ml Syringe IVP 4 mg Q4HR PRN Administration Pain Propranolol HCl 20 mg 01/24/23 18:06 01/24/23 19:32 Propranolol 20 Mg Tab PO 20 mg HS LOREN Administration Thiamine HCl 100 mg 01/25/23 09:00 01/25/23 08:35 Thiamine 100 Mg Tab PO 100 mg DAILY LOREN Administration Objective - Vital Signs Vital signs: Vital Signs Temp 98.4 F 01/25/23 11:54 Pulse 98 01/25/23 11:54 Resp 18 01/25/23 11:54 BP 128/87 01/25/23 11:54 Pulse Ox 93 L 01/25/23 11:54 FiO2 Intake & Output 01/24/23 01/25/23 01/25/23 18:59 06:59 18:59 Intake Total 33.365 628.464 Output Total 375 Balance -341.635 628.464 Weight 86.183 kg 86.183 kg 86.183 kg Intake: Intake, IV Titration 33.365 30.464 Amount Insulin Regular 100 unit 33.365 30.464 In Sodium Chloride 0.9% 100 ml @ 0.1 UNITS/KG/HR 8.704 mls/hr IV .[id number] LOREN Rx#:[id number] Oral 598 Output: Urine 375 Other: Voiding Method Urinal Urinal - Exam -GENERAL: The patient is alert and oriented x3, less drowsy at more awake and answered questions appropriately and follows commands not in any acute distress. Well developed, well nourished. HEENT: Pupils are round and equally reacting to light. EOMI. No scleral icterus. No conjunctival pallor. Normocephalic, atraumatic. No pharyngeal erythema. No thyromegaly. CARDIOVASCULAR: S1 and S2 present. No murmurs, rubs, or gallops. PULMONARY: Chest is clear to auscultation, no wheezing . no crackles. -ABDOMEN: Soft, mild epigastric tenderness with no guarding or rebound d tenderness, , normoactive bowel sounds. No palpable organomegaly. MUSCULOSKELETAL: No joint swelling or deformity. EXTREMITIES: No cyanosis, clubbing, or pedal edema. NEUROLOGICAL: Gross neurological examination did not reveal any focal deficits. SKIN: No rashes. no petechiae. - Labs CBC & Chem 7: 01/25/23 05:20 01/25/23 07:59 Labs: Abnormal Lab Results - Last 24 Hours (Table) 01/24/23 01/24/23 01/25/23 Range/Units 11:34 11:51 00:17 RBC (4.30-5.90) m/uL Hgb (13.0-17.5) gm/dL Hct (39.0-53.0) % Plt Count (150-450) k/uL Neutrophils # (1.3-7.7) k/uL Lymphocytes # (1.0-4.8) k/uL Sodium (137-145) mmol/L Potassium (3.5-5.1) mmol/L Chloride (98-107) mmol/L BUN (9-20) mg/dL Creatinine (0.66-1.25) mg/dL Glucose (74-99) mg/dL POC Glucose (mg/dL) 356 H (70-110) mg/dL Calcium (8.4-10.2) mg/dL Phosphorus (2.5-4.5) mg/dL Total Bilirubin (0.2-1.3) mg/dL Delta Bilirubin (0.0-0.2) mg/dL Total Protein (6.3-8.2) g/dL Albumin (3.5-5.0) g/dL Lipase (23-300) U/L Procalcitonin 0.15 H (0.02-0.09) ng/mL Ur Specific Irving 1.036 H (1.001-1.035) Urine Protein 3+ H (Negative) Urine Glucose (UA) 3+ H (Negative) Urine Ketones 3+ H (Negative) Urine Blood Trace H (Negative) Urine Bilirubin 1+ H (Negative) Hyaline Casts 116 H (0-2) /lpf Urine Mucus Many H (None) /hpf 01/25/23 01/25/23 01/25/23 Range/Units 01:25 01:25 01:58 RBC 3.83 L (4.30-5.90) m/uL Hgb (13.0-17.5) gm/dL Hct 38.3 L (39.0-53.0) % Plt Count 83 L (150-450) k/uL Neutrophils # 8.5 H (1.3-7.7) k/uL Lymphocytes # 0.5 L (1.0-4.8) k/uL Sodium 126 L (137-145) mmol/L Potassium 3.1 L (3.5-5.1) mmol/L Chloride 88 L (98-107) mmol/L BUN (9-20) mg/dL Creatinine 0.61 L (0.66-1.25) mg/dL Glucose 297 H (74-99) mg/dL POC Glucose (mg/dL) 234 H (70-110) mg/dL Calcium (8.4-10.2) mg/dL Phosphorus (2.5-4.5) mg/dL Total Bilirubin (0.2-1.3) mg/dL Delta Bilirubin (0.0-0.2) mg/dL Total Protein (6.3-8.2) g/dL Albumin (3.5-5.0) g/dL Lipase (23-300) U/L Procalcitonin (0.02-0.09) ng/mL Ur Specific Irving (1.001-1.035) Urine Protein (Negative) Urine Glucose (UA) (Negative) Urine Ketones (Negative) Urine Blood (Negative) Urine Bilirubin (Negative) Hyaline Casts (0-2) /lpf Urine Mucus (None) /hpf 01/25/23 01/25/23 01/25/23 Range/Units 02:58 04:07 04:55 RBC (4.30-5.90) m/uL Hgb (13.0-17.5) gm/dL Hct (39.0-53.0) % Plt Count (150-450) k/uL Neutrophils # (1.3-7.7) k/uL Lymphocytes # (1.0-4.8) k/uL Sodium (137-145) mmol/L Potassium (3.5-5.1) mmol/L Chloride (98-107) mmol/L BUN (9-20) mg/dL Creatinine (0.66-1.25) mg/dL Glucose (74-99) mg/dL POC Glucose (mg/dL) 188 H 172 H 184 H (70-110) mg/dL Calcium (8.4-10.2) mg/dL Phosphorus (2.5-4.5) mg/dL Total Bilirubin (0.2-1.3) mg/dL Delta Bilirubin (0.0-0.2) mg/dL Total Protein (6.3-8.2) g/dL Albumin (3.5-5.0) g/dL Lipase (23-300) U/L Procalcitonin (0.02-0.09) ng/mL Ur Specific Irving (1.001-1.035) Urine Protein (Negative) Urine Glucose (UA) (Negative) Urine Ketones (Negative) Urine Blood (Negative) Urine Bilirubin (Negative) Hyaline Casts (0-2) /lpf Urine Mucus (None) /hpf 01/25/23 01/25/23 01/25/23 Range/Units 05:20 05:20 06:02 RBC 3.82 L (4.30-5.90) m/uL Hgb 12.9 L (13.0-17.5) gm/dL Hct 37.5 L (39.0-53.0) % Plt Count 72 L (150-450) k/uL Neutrophils # 8.3 H (1.3-7.7) k/uL Lymphocytes # 0.6 L (1.0-4.8) k/uL Sodium 128 L (137-145) mmol/L Potassium 3.3 L (3.5-5.1) mmol/L Chloride 89 L (98-107) mmol/L BUN (9-20) mg/dL Creatinine 0.58 L (0.66-1.25) mg/dL Glucose 176 H (74-99) mg/dL POC Glucose (mg/dL) 188 H (70-110) mg/dL Calcium 7.6 L (8.4-10.2) mg/dL Phosphorus 0.6 L* (2.5-4.5) mg/dL Total Bilirubin 1.6 H (0.2-1.3) mg/dL Delta Bilirubin 0.6 H (0.0-0.2) mg/dL Total Protein 5.1 L (6.3-8.2) g/dL Albumin 2.8 L (3.5-5.0) g/dL Lipase 1564 H (23-300) U/L Procalcitonin (0.02-0.09) ng/mL Ur Specific Irving (1.001-1.035) Urine Protein (Negative) Urine Glucose (UA) (Negative) Urine Ketones (Negative) Urine Blood (Negative) Urine Bilirubin (Negative) Hyaline Casts (0-2) /lpf Urine Mucus (None) /hpf 01/25/23 01/25/23 01/25/23 Range/Units 06:50 07:59 07:59 RBC (4.30-5.90) m/uL Hgb (13.0-17.5) gm/dL Hct (39.0-53.0) % Plt Count (150-450) k/uL Neutrophils # (1.3-7.7) k/uL Lymphocytes # (1.0-4.8) k/uL Sodium 129 L (137-145) mmol/L Potassium 3.3 L (3.5-5.1) mmol/L Chloride 92 L (98-107) mmol/L BUN 8 L (9-20) mg/dL Creatinine 0.52 L (0.66-1.25) mg/dL Glucose 163 H (74-99) mg/dL POC Glucose (mg/dL) 206 H (70-110) mg/dL Calcium (8.4-10.2) mg/dL Phosphorus 0.6 L* (2.5-4.5) mg/dL Total Bilirubin (0.2-1.3) mg/dL Delta Bilirubin (0.0-0.2) mg/dL Total Protein (6.3-8.2) g/dL Albumin (3.5-5.0) g/dL Lipase (23-300) U/L Procalcitonin (0.02-0.09) ng/mL Ur Specific Irving (1.001-1.035) Urine Protein (Negative) Urine Glucose (UA) (Negative) Urine Ketones (Negative) Urine Blood (Negative) Urine Bilirubin (Negative) Hyaline Casts (0-2) /lpf Urine Mucus (None) /hpf 01/25/23 01/25/23 01/25/23 Range/Units 08:04 09:05 11:53 RBC (4.30-5.90) m/uL Hgb (13.0-17.5) gm/dL Hct (39.0-53.0) % Plt Count (150-450) k/uL Neutrophils # (1.3-7.7) k/uL Lymphocytes # (1.0-4.8) k/uL Sodium (137-145) mmol/L Potassium (3.5-5.1) mmol/L Chloride (98-107) mmol/L BUN (9-20) mg/dL Creatinine (0.66-1.25) mg/dL Glucose (74-99) mg/dL POC Glucose (mg/dL) 166 H 138 H 167 H (70-110) mg/dL Calcium (8.4-10.2) mg/dL Phosphorus (2.5-4.5) mg/dL Total Bilirubin (0.2-1.3) mg/dL Delta Bilirubin (0.0-0.2) mg/dL Total Protein (6.3-8.2) g/dL Albumin (3.5-5.0) g/dL Lipase (23-300) U/L Procalcitonin (0.02-0.09) ng/mL Ur Specific Irving (1.001-1.035) Urine Protein (Negative) Urine Glucose (UA) (Negative) Urine Ketones (Negative) Urine Blood (Negative) Urine Bilirubin (Negative) Hyaline Casts (0-2) /lpf Urine Mucus (None) /hpf Assessment and Plan Assessment: Alcohol use disorder with alcohol withdrawal at risk of delirium tremens. Elevated lipase most likely secondary to alcoholic pancreatitis Mild asymptomatic alcoholic transaminitis, resolved possible Diabetic ketoacidosis related to his acute pancreatitis. His hemoglobin A1c is normal at 5.1 percent. We will check a C-peptide level Thrombocytopenia Hypovolemic hyponatremia depression with no suicidal ideation Plan: continue with CIWA protocol Continue with thiamine and vitamins Continue with normal saline 150 mL/h Follow up with psychiatrist check C-peptide level. Recheck hemoglobin A1c Discontinue Levemir and discontinue the NovoLog 9 units with meals. While continue with regular insulin with meals as insulin sliding scale with close monitoring of glucose check CT of the abdomen Monitor lipase and liver enzymes closely Labs and medication were reviewed.. Continue same treatment. Continue with symptomatic treatment. Resume home medication. Monitor labs and vitals. DVT and GI prophylaxis. Further recommendations as per clinical course of the patient DVT prophylaxis: Subcutaneous heparin GI Prophylaxis: Pepcid Prognosis is guarded plan of care discussed with the bedside nurse today and medication and labs reviewed with her
--- NOTE | 2023-01-25 16:01 | CT ---
EXAMINATION TYPE: CT abdomen wo con DATE OF EXAM: 01/25/2023 COMPARISON: None HISTORY: ABDOMINAL PAIN AND ETOH DETOX CT DLP: 543 mGycm Examination of the solid and hollow viscera is limited given the lack of contrast. FINDINGS: LUNG BASES: No evidence for nodule. Small left basilar pleural effusion and compressive atelectasis. LIVER/GB: The gallbladder is unremarkable. No space-occupying hepatic lesion. Mild hepatic steatosis noted. Mild hepatomegaly. PANCREAS: No pancreatic mass identified. There is edema of the pancreas with peripancreatic strandy a ttenuation and a small amount of fluid compatible with acute pancreatitis. No evidence for focal flui d collection to suggest abscess or pseudocyst at this time. SPLEEN: No evidence for splenomegaly. No intrasplenic lesions seen. ADRENALS: No adrenal nodules identified. No evidence for thickening. KIDNEYS: No evidence for renal mass. No nephrolithiasis. No hydronephrosis. BOWEL: Visualized bowel loops. Normal caliber. Lymph nodes: No evidence for adenopathy greater than 1 cm. Abdominal aorta: Atheromatous changes seen. No evidence for aneurysm. Other: No significant abnormality. IMPRESSION: 1. Findings compatible with acute pancreatitis. 2. Mild hepatomegaly with underlying hepatic steatosis. 3. Left basilar effusion with compressive atelectasis.
[2023-01-25 16:03] LABS: Potassium 4.1 mmol/L (3.5-5.1)
[2023-01-25 16:27] LABS: Glucose,Whole Blood 210 mg/dL (70-110)
--- NOTE | 2023-01-25 16:55 | P.CN ---
Psychiatric Consult - . Consult date: 01/25/23 Consult:: 01/25/23 16:35 Psychiatric consultation 47 old man currently unemployed living iwth his mother in the suburb of [place] was referred to psychiaty for assessment of his alcohol abuse and depression. I interviewed the patient and reviewed the medical note and had the opportunity to briefly talking to his mother visiting him. Chief complaint: alcohol use and mood HPI. Headmitted he presengted with longstanding history of alcohol use with repeated detoxification and rehabilitation. He was tried on Revia (naltrexone0 for a few months which helped somewhat but relapsed after he discontinued. 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 His mother confirmed his stressful life events. no support, relationship failure and financial hardships. He realled he may have had psychiatrci admission to [facility] in [place] or in other communities in [place] ; he did not want ot be considered brief admisison to inpatient psychiatric unit in [place]. His HPI was abbreviated due to his physical distress : he had to re-position himself quite a few times. With history of smoking cigarettes, he was coughing regularly. He appeared tired and apathetic and in a highly distraught state. He did not reiterate the few medical complaints noted in the HOSP MED entry: recnet epigastric pain and comorbid pancreatitis and hepatitis were entered into the medical proiblem list.He has hyponatremia but not to the extent of seizure. I inquired whether he had had alcohol withdrawal seizure. and informed him [facility] protocol was in place for monitoring his alcohol withdrawal. He seemed to be indifferent towards the overall outcome In view of his elevated enzyme and his active medical problem list, I would NOT recommend him to be restarted on Revia (oral or Vivitrol) until his medical problems have largely been resolved. Psychiatric and substance use history: detailed data to be defered. Long standi ng alcohol use and nicotine dependence. with multiple relapses. He did not appear to be responding to SSRI. He was not tried on SNRI (mirtazepine or effexor) however, at the acute phase this would NOT be indicated. His affect was highly blunted; speech coherent and hesitant He was too fatigued to continue with full assessment. No psychotic symptoms of hallucinations no delusons. No suicidla or homicidal ideaiton .Cog; He was oriented in 3 sphers, no aphasia no dysarthria. No fine tremor. Insight judgement was marginal diagnosis: alcohol use disorder moderate severity with withdrawal seizure and med. 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 Management; 1. motivation enhancement approach may best benefit to accept more focussed residential treatment once his overal medicla condition was improved. 2. he may benefit from low dosage of GABApentin 100- 200 mg po bid to reduce craving . Vivitrol can help him in the long run. 3. he may benefit from higher dosage of cITaloprim howeverQT intervnal will be a cv risk . Mirtirazepine may be the alternative.. We will follow him at MED request as needed.
[2023-01-25] MEDS: PROPRANOLOL 20 MG TAB PO SCH (19:51)
[2023-01-25 19:52] LABS: Glucose,Whole Blood 268 mg/dL (70-110)
[2023-01-25] MEDS ORDERED: LORazepam 2 MG/ML INJ IV PRN (23:56)
[2023-01-25] MEDS ORDERED: THIAMINE 100 MG/ML 2 ML VIAL IM STA (23:56)
[2023-01-26] MEDS: POTAS-SOD-PHOS 278-164-250 MG 1 EACH PACKET PO SCH ×2 (00:26→03:02)
[2023-01-26] MEDS: LORazepam 2 MG/ML INJ IV PRN ×9 (00:34→19:31)
[2023-01-26 02:42] LABS: Glucose,Whole Blood 237 mg/dL (70-110)
[2023-01-26] MEDS: INSULIN ASPART (NovoLOG) 100 UNIT/ML VIAL SQ SCH ×5 (02:44→20:04)
[2023-01-26] MEDS: SODIUM CHLORIDE 0.9% 1,000 ML IV SCH ×3 (05:54→14:49)
[2023-01-26 06:18] LABS: Glucose,Whole Blood 220 mg/dL (70-110)
[2023-01-26] MEDS: ESCITALOPRAM 10 MG TAB PO SCH (07:47)
[2023-01-26] MEDS: THIAMINE 100 MG TAB PO SCH (07:48)
[2023-01-26] MEDS: HEPARIN SODIUM,PORCINE/PF 5,000 UNIT/0.5 ML SYRINGE SQ SCH ×2 (07:48→20:07)
[2023-01-26] MEDS: FAMOTIDINE 20 MG TAB PO SCH ×2 (07:48→20:04)
[2023-01-26] MEDS: FOLIC ACID 1 MG TAB PO SCH (07:48)
[2023-01-26] MEDS ORDERED: THIAMINE 100 MG TAB PO SCH (09:00)
[2023-01-26] MEDS ORDERED: POTAS-SOD-PHOS 278-164-250 MG 1 EACH PACKET PO ONE (09:00)
[2023-01-26 10:13] LABS: African American GFR (CKD) >90 (>60 ml/min/1.73 sqM); Anion Gap 7 mmol/L; Blood Urea Nitrogen 5 mg/dL (9-20); Calcium 7.8 mg/dL (8.4-10.2); Carbon Dioxide 29 mmol/L (22-30); Chloride 95 mmol/L (98-107); Glucose 194 mg/dL (74-99); Non-African American GFR(CKD) >90 (>60 ml/min/1.73 sqM); Potassium 3.8 mmol/L (3.5-5.1); Sodium 131 mmol/L (137-145)
[2023-01-26 12:18] LABS: Glucose,Whole Blood 223 mg/dL (70-110)
--- NOTE | 2023-01-26 15:31 | P.PN ---
Subjective Progress Note Date: 01/26/23 47 years old male with past medical history of hypertension, depression and alcohol use disorder. Patient is drowsy but he wakes up easily to verbal stimuli and answered questions appropriately although it looks sleepy throughout the encounter. He is oriented to time place and person, he states he came because he wanted to detox. Also has been complaining from epigastric abdominal pain about 5/10 in severity for the last 4-5 days, felt like sharp with no relieving or precipitating factors although advanced some movement. He vomited 4-6 times with no blood. He has normal bowel movement. His abdomen looks soft. However he denies any urinary neurological or cardiogenic symptoms. He does not smoke or use illicit drugs but he drinks to fifth day. Last drink was 9:30 this morning. Patient is a known history of depression however he denies any homicidal or suicidal ideation, he denies hallucination or delusions for me. He is tachycardic but not hypotensive and not febrile He has leukocytosis of 16.3, platelet count 112 is expected due to alcohol affect Sodium 129, glucose 2:30. Magnesium 1.3. AST 98 and ALT 62 and total bilirubin is elevated at 1.8 however is now INR that was ordered 01/25/2023 Patient clinically looks better, he is awake alert 3 he knows where his at and the date and time and person. He has insight into his illness, he follows commands, he looks his back to his baseline mental state although he still feels little tired and sleepy. He feels little groggy but no significant confusion. No headache dizziness weakness or numbness. He still complaining of from epigastric pain about 6/10 in severity, non- radiating, sharp in nature. No more vomiting. He does not have bowel movement but he was nothing by mouth overnight. I talked to the patient and he thinks he is willing to start diet but he likes to start slowly. Patient tolerated clear liquid diet, and we are going to advance to full liquid diet today. He feels little depressed and anxious No chest pain or dyspnea. He is hemodynamically stable, afebrile. Heart rate is improving down to 105 and 98. Labs showing improvement as well, WBC is down to 10.1. Sodium 129, AST and ALT are normal today while bilirubin is going down to 1.6. Lipase is coming down to 3748 down to 1564. His CIWA score is ranging between 124. Progress calcitonin is not significantly elevated at only 0.15. Last night patient was found to have what looks like diabetic ketoacidosis with an anion gap, glucosuria and ketonuria and was deficits on in the blood and he was placed on insulin drip per protocol and his abdomen and closed. Today he's sugar is controlled. Because he was nothing by mouth we stopped his Levemir. His hemoglobin A1c is interestingly normal at 5.1%. We will repeat hemoglobin A1c tomorrow. Also we will check a C-peptide. Patient informed about this sugar problem Serum phosphorus is severely low at 0.6 and his been replaced on protocol. Repeat phosphorus is still 0.6. Monitor and replace electrolytes. Sodium 129. He started on [place] for pain control. Because of this neltrexone was discon tinued. He remains on aggressive hydration. His home dose of propranolol 20 mg started yesterday. We will order CT of the abdomen psychiatric team consulted 01/26 His hemoglobin A1c is interestingly normal at 5.1%., Bicarb normal , Monitor of Insulin COntinue Fluids Objective - Vital Signs Vital signs: Vital Signs Temp 98.3 F 01/26/23 11:15 Pulse 82 01/26/23 11:15 Resp 20 01/26/23 11:15 BP 134/93 01/26/23 11:15 Pulse Ox 95 01/26/23 11:15 FiO2 Intake & Output 01/25/23 01/26/23 01/26/23 18:59 06:59 18:59 Intake Total 986.464 237 780 Output Total 150 150 Balance 986.464 87 630 Weight 86.183 kg Intake: Intake, IV Titration 30.464 Amount Insulin Regular 100 unit 30.464 In Sodium Chloride 0.9% 100 ml @ 0.1 UNITS/KG/HR 8.704 mls/hr IV .[id number] [facility] Rx#:[id number] Oral 956 237 780 Output: Urine 150 150 Other: Voiding Method Urinal Urinal Bedside Commode Diaper # Voids 1 3 1 - Exam -GENERAL: The patient is alert and oriented x3, less drowsy at more awake and answered questions appropriately and follows commands not in any acute distress. Well developed, well nourished. HEENT: Pupils are round and equally reacting to light. EOMI. No scleral icterus. No conjunctival pallor. Normocephalic, atraumatic. No pharyngeal erythema. No thyromegaly. CARDIOVASCULAR: S1 and S2 present. No murmurs, rubs, or gallops. PULMONARY: Chest is clear to auscultation, no wheezing . no crackles. -ABDOMEN: Soft, mild epigastric tenderness with no guarding or rebound d tenderness, , normoactive bowel sounds. No palpable organomegaly. MUSCULOSKELETAL: No joint swelling or deformity. EXTREMITIES: No cyanosis, clubbing, or pedal edema. NEUROLOGICAL: Gross neurological examination did not reveal any focal deficits. SKIN: No rashes. no petechiae. - Labs CBC & Chem 7: 01/25/23 05:20 01/26/23 06:11 Labs: Abnormal Lab Results - Last 24 Hours (Table) 01/25/23 01/25/23 01/25/23 Range/Units 16:21 19:49 23:15 Sodium (137-145) mmol/L Chloride (98-107) mmol/L BUN (9-20) mg/dL Creatinine (0.66-1.25) mg/dL Glucose (74-99) mg/dL POC Glucose (mg/dL) 210 H 268 H (70-110) mg/dL Calcium (8.4-10.2) mg/dL Phosphorus 0.9 L* (2.5-4.5) mg/dL 01/26/23 01/26/23 01/26/23 Range/Units 02:41 06:11 06:11 Sodium 131 L (137-145) mmol/L Chloride 95 L (98-107) mmol/L BUN 5 L (9-20) mg/dL Creatinine 0.48 L (0.66-1.25) mg/dL Glucose 194 H (74-99) mg/dL POC Glucose (mg/dL) 237 H (70-110) mg/dL Calcium 7.8 L (8.4-10.2) mg/dL Phosphorus 1.5 L (2.5-4.5) mg/dL 01/26/23 01/26/23 Range/Units 06:16 11:42 Sodium (137-145) mmol/L Chloride (98-107) mmol/L BUN (9-20) mg/dL Creatinine (0.66-1.25) mg/dL Glucose (74-99) mg/dL POC Glucose (mg/dL) 220 H 223 H (70-110) mg/dL Calcium (8.4-10.2) mg/dL Phosphorus (2.5-4.5) mg/dL Assessment and Plan Assessment: Assessment: * Alcohol use disorder with alcohol withdrawal at risk of delirium tremens. * Acute Pancreatitis * alcoholic transaminitis, resolved * Hyperglycemia DKA ruled out His hemoglobin A1c is normal at 5.1 percent. * Thrombocytopenia * Hypovolemic hyponatremia * depression with no suicidal ideation Plan: continue with CIWA protocol Continue with thiamine and vitamins Continue with normal saline Follow up with psychiatrist Discontinued Levemir and discontinue the NovoLog 9 units with meals. continue with regular insulin with meals as insulin sliding scale with close monitoring of glucose Monitor lipase and liver enzymes closely Labs and medication were reviewed. DVT prophylaxis: Subcutaneous heparin GI Prophylaxis: Pepcid
[2023-01-26 16:45] LABS: Glucose,Whole Blood 224 mg/dL (70-110)
[2023-01-26 19:59] LABS: Glucose,Whole Blood 177 mg/dL (70-110)
[2023-01-26] MEDS: PROPRANOLOL 20 MG TAB PO SCH (20:04)
[2023-01-27 03:01] LABS: Glucose,Whole Blood 155 mg/dL (70-110)
[2023-01-27] MEDS: INSULIN ASPART (NovoLOG) 100 UNIT/ML VIAL SQ SCH ×5 (03:07→20:44)
[2023-01-27 05:58] LABS: Glucose,Whole Blood 167 mg/dL (70-110)
[2023-01-27] MEDS: LORazepam 2 MG/ML INJ IV PRN ×2 (06:40→11:51)
[2023-01-27] MEDS: SODIUM CHLORIDE 0.9% 1,000 ML IV SCH ×4 (07:19→20:37)
[2023-01-27 07:39] LABS: African American GFR (CKD) >90 (>60 ml/min/1.73 sqM); Anion Gap 6 mmol/L; Blood Urea Nitrogen 4 mg/dL (9-20); Carbon Dioxide 31 mmol/L (22-30); Chloride 95 mmol/L (98-107); Glucose 165 mg/dL (74-99); Lipase 716 U/L (23-300); Magnesium 1.8 mg/dL (1.6-2.3); Non-African American GFR(CKD) >90 (>60 ml/min/1.73 sqM); Phosphorus 2.7 mg/dL (2.5-4.5); Potassium 3.7 mmol/L (3.5-5.1); Sodium 132 mmol/L (137-145)
[2023-01-27] MEDS: HEPARIN SODIUM,PORCINE/PF 5,000 UNIT/0.5 ML SYRINGE SQ SCH ×2 (07:41→20:55)
[2023-01-27] MEDS: ESCITALOPRAM 10 MG TAB PO SCH (07:41)
[2023-01-27] MEDS: FAMOTIDINE 20 MG TAB PO SCH ×2 (07:41→20:44)
[2023-01-27] MEDS: FOLIC ACID 1 MG TAB PO SCH (07:41)
[2023-01-27] MEDS: THIAMINE 100 MG TAB PO SCH (07:41)
[2023-01-27 07:43] LABS: HCT 39.7 % (39.0-53.0); HGB 13.2 gm/dL (13.0-17.5); MCHC 33.2 g/dL (31.0-37.0); MCV 102.4 fL (80.0-100.0); Macrocytosis Slight; Mean Platelet Volume 9.9; RBC 3.88 m/uL (4.30-5.90); RDW 13.1 % (11.5-15.5); WBC 5.8 k/uL (3.8-10.6)
[2023-01-27 11:33] LABS: Glucose,Whole Blood 191 mg/dL (70-110)
--- NOTE | 2023-01-27 14:11 | P.PN ---
Subjective Progress Note Date: 01/27/23 47 years old male with past medical history of hypertension, depression and alcohol use disorder. Patient is drowsy but he wakes up easily to verbal stimuli and answered questions appropriately although it looks sleepy throughout the encounter. He is oriented to time place and person, he states he came because he wanted to detox. Also has been complaining from epigastric abdominal pain about 5/10 in severity for the last 4-5 days, felt like sharp with no relieving or precipitating factors although advanced some movement. He vomited 4-6 times with no blood. He has normal bowel movement. His abdomen looks soft. However he denies any urinary neurological or cardiogenic symptoms. He does not smoke or use illicit drugs but he drinks to fifth day. Last drink was 9:30 this morning. Patient is a known history of depression however he denies any homicidal or suicidal ideation, he denies hallucination or delusions for me. He is tachycardic but not hypotensive and not febrile He has leukocytosis of 16.3, platelet count 112 is expected due to alcohol affect Sodium 129, glucose 2:30. Magnesium 1.3. AST 98 and ALT 62 and total bilirubin is elevated at 1.8 however is now INR that was ordered 01/25/2023 Patient clinically looks better, he is awake alert 3 he knows where his at and the date and time and person. He has insight into his illness, he follows commands, he looks his back to his baseline mental state although he still feels little tired and sleepy. He feels little groggy but no significant confusion. No headache dizziness weakness or numbness. He still complaining of from epigastric pain about 6/10 in severity, non- radiating, sharp in nature. No more vomiting. He does not have bowel movement but he was nothing by mouth overnight. I talked to the patient and he thinks he is willing to start diet but he likes to start slowly. Patient tolerated clear liquid diet, and we are going to advance to full liquid diet today. He feels little depressed and anxious No chest pain or dyspnea. He is hemodynamically stable, afebrile. Heart rate is improving down to 105 and 98. Labs showing improvement as well, WBC is down to 10.1. Sodium 129, AST and ALT are normal today while bilirubin is going down to 1.6. Lipase is coming down to 3748 down to 1564. His CIWA score is ranging between 124. Progress calcitonin is not significantly elevated at only 0.15. Last night patient was found to have what looks like diabetic ketoacidosis with an anion gap, glucosuria and ketonuria and was deficits on in the blood and he was placed on insulin drip per protocol and his abdomen and closed. Today he's sugar is controlled. Because he was nothing by mouth we stopped his Levemir. His hemoglobin A1c is interestingly normal at 5.1%. We will repeat hemoglobin A1c tomorrow. Also we will check a C-peptide. Patient informed about this sugar problem Serum phosphorus is severely low at 0.6 and his been replaced on protocol. Repeat phosphorus is still 0.6. Monitor and replace electrolytes. Sodium 129. He started on [place] for pain control. Because of this neltrexone was discon tinued. He remains on aggressive hydration. His home dose of propranolol 20 mg started yesterday. We will order CT of the abdomen psychiatric team consulted 01/26 His hemoglobin A1c is interestingly normal at 5.1%., Bicarb normal , Monitor of Insulin COntinue Fluids 01/27 Diet advanced, Lipase improved, Continue to withdraw from alochol Objective - Vital Signs Vital signs: Vital Signs Temp 98 F 01/27/23 12:00 Pulse 79 01/27/23 12:00 Resp 18 01/27/23 12:00 BP 137/94 01/27/23 12:00 Pulse Ox 97 01/27/23 12:00 FiO2 Intake & Output 01/26/23 01/27/23 01/27/23 18:59 06:59 18:59 Intake Total 1620 240 Output Total 800 600 500 Balance 820 -600 -260 Intake: Oral 1620 240 Output: Urine 800 600 500 Other: Voiding Method Bedside Commode Bedside Commode Bedside Commode Diaper Diaper Diaper # Voids 1 1 2 - Exam -GENERAL: The patient is alert and oriented x3, less drowsy at more awake and answered questions appropriately and follows commands not in any acute distress. Well developed, well nourished. HEENT: Pupils are round and equally reacting to light. EOMI. No scleral icterus. No conjunctival pallor. Normocephalic, atraumatic. No pharyngeal erythema. No thyromegaly. CARDIOVASCULAR: S1 and S2 present. No murmurs, rubs, or gallops. PULMONARY: Chest is clear to auscultation, no wheezing . no crackles. -ABDOMEN: Soft, mild epigastric tenderness with no guarding or rebound d tenderness, , normoactive bowel sounds. No palpable organomegaly. MUSCULOSKELETAL: No joint swelling or deformity. EXTREMITIES: No cyanosis, clubbing, or pedal edema. NEUROLOGICAL: Gross neurological examination did not reveal any focal deficits. SKIN: No rashes. no petechiae. - Labs CBC & Chem 7: 01/27/23 06:17 01/27/23 06:17 Labs: Abnormal Lab Results - Last 24 Hours (Table) 01/26/23 01/26/23 01/27/23 Range/Units 16:25 19:58 02:58 RBC (4.30-5.90) m/uL MCV (80.0-100.0) fL Plt Count (150-450) k/uL Sodium (137-145) mmol/L Chloride (98-107) mmol/L Carbon Dioxide (22-30) mmol/L BUN (9-20) mg/dL Creatinine (0.66-1.25) mg/dL Glucose (74-99) mg/dL POC Glucose (mg/dL) 224 H 177 H 155 H (70-110) mg/dL Calcium (8.4-10.2) mg/dL Lipase (23-300) U/L 01/27/23 01/27/23 01/27/23 Range/Units 05:56 06:17 06:17 RBC 3.88 L (4.30-5.90) m/uL MCV 102.4 H (80.0-100.0) fL Plt Count 139 L D (150-450) k/uL Sodium 132 L (137-145) mmol/L Chloride 95 L (98-107) mmol/L Carbon Dioxide 31 H (22-30) mmol/L BUN 4 L (9-20) mg/dL Creatinine 0.44 L (0.66-1.25) mg/dL Glucose 165 H (74-99) mg/dL POC Glucose (mg/dL) 167 H (70-110) mg/dL Calcium 8.0 L (8.4-10.2) mg/dL Lipase 716 H (23-300) U/L 01/27/23 Range/Units 11:32 RBC (4.30-5.90) m/uL MCV (80.0-100.0) fL Plt Count (150-450) k/uL Sodium (137-145) mmol/L Chloride (98-107) mmol/L Carbon Dioxide (22-30) mmol/L BUN (9-20) mg/dL Creatinine (0.66-1.25) mg/dL Glucose (74-99) mg/dL POC Glucose (mg/dL) 191 H (70-110) mg/dL Calcium (8.4-10.2) mg/dL Lipase (23-300) U/L Assessment and Plan Assessment: Assessment: * Alcohol use disorder with alcohol withdrawal at risk of delirium tremens. * Acute Pancreatitis * alcoholic transaminitis, resolved * Hyperglycemia DKA ruled out His hemoglobin A1c is normal at 5.1 percent. * Thrombocytopenia * Hypovolemic hyponatremia * depression with no suicidal ideation Plan: continue with CIWA protocol Continue with thiamine and vitamins Continue with normal saline DC 01/28 Follow up with psychiatrist Discontinued Levemir and discontinue the NovoLog insulin sliding scale with close monitoring of glucose Monitor lipase and liver enzymes closely Labs and medication were reviewed. DVT prophylaxis: Subcutaneous heparin GI Prophylaxis: Pepcid
[2023-01-27] MEDS: KETOROLAC 15 MG/ML 1 ML VIAL IVP PRN (15:18)
[2023-01-27 16:06] LABS: Glucose,Whole Blood 341 mg/dL (70-110)
[2023-01-27 18:30] LABS: Platelet Count 139 k/uL (150-450)
[2023-01-27 20:06] LABS: Glucose,Whole Blood 300 mg/dL (70-110)
[2023-01-27] MEDS: PROPRANOLOL 20 MG TAB PO SCH (20:44)
[2023-01-28] MEDS: LORazepam 2 MG/ML INJ IV PRN (00:52)
[2023-01-28 02:14] LABS: Glucose,Whole Blood 197 mg/dL (70-110)
[2023-01-28] MEDS: INSULIN ASPART (NovoLOG) 100 UNIT/ML VIAL SQ SCH ×5 (02:17→19:55)
[2023-01-28] MEDS: SODIUM CHLORIDE 0.9% 1,000 ML IV SCH ×3 (04:54→10:19)
[2023-01-28 06:11] LABS: Glucose,Whole Blood 183 mg/dL (70-110)
[2023-01-28] MEDS ORDERED: hydrOXYzine HCL 25 MG TAB PO PRN (09:03)
[2023-01-28 09:52] LABS: HCT 39.9 % (39.0-53.0); HGB 13.4 gm/dL (13.0-17.5); MCH 34.3 pg (25.0-35.0); MCHC 33.6 g/dL (31.0-37.0); MCV 102.2 fL (80.0-100.0); Macrocytosis Slight; Mean Platelet Volume 9.4; Platelet Count 183 k/uL (150-450); RDW 13.1 % (11.5-15.5)
[2023-01-28 10:08] LABS: African American GFR (CKD) >90 (>60 ml/min/1.73 sqM); Anion Gap 7 mmol/L; Blood Urea Nitrogen 5 mg/dL (9-20); Carbon Dioxide 31 mmol/L (22-30); Chloride 95 mmol/L (98-107); Glucose 301 mg/dL (74-99); Non-African American GFR(CKD) >90 (>60 ml/min/1.73 sqM); Potassium 3.9 mmol/L (3.5-5.1); Sodium 133 mmol/L (137-145)
[2023-01-28] MEDS: HEPARIN SODIUM,PORCINE/PF 5,000 UNIT/0.5 ML SYRINGE SQ SCH ×2 (10:18→19:55)
[2023-01-28] MEDS: KETOROLAC 15 MG/ML 1 ML VIAL IVP PRN ×2 (10:18→15:52)
[2023-01-28] MEDS: FOLIC ACID 1 MG TAB PO SCH (10:19)
[2023-01-28] MEDS: FAMOTIDINE 20 MG TAB PO SCH ×2 (10:19→19:55)
[2023-01-28] MEDS: ESCITALOPRAM 10 MG TAB PO SCH (10:19)
[2023-01-28] MEDS: THIAMINE 100 MG TAB PO SCH (10:19)
[2023-01-28 11:35] LABS: Glucose,Whole Blood 377 mg/dL (70-110)
--- NOTE | 2023-01-28 12:10 | P.PN ---
Subjective Progress Note Date: 01/28/23 47 years old male with past medical history of hypertension, depression and alcohol use disorder. Patient is drowsy but he wakes up easily to verbal stimuli and answered questions appropriately although it looks sleepy throughout the encounter. He is oriented to time place and person, he states he came because he wanted to detox. Also has been complaining from epigastric abdominal pain about 5/10 in severity for the last 4-5 days, felt like sharp with no relieving or precipitating factors although advanced some movement. He vomited 4-6 times with no blood. He has normal bowel movement. His abdomen looks soft. However he denies any urinary neurological or cardiogenic symptoms. He does not smoke or use illicit drugs but he drinks to fifth day. Last drink was 9:30 this morning. Patient is a known history of depression however he denies any homicidal or suicidal ideation, he denies hallucination or delusions for me. He is tachycardic but not hypotensive and not febrile He has leukocytosis of 16.3, platelet count 112 is expected due to alcohol affect Sodium 129, glucose 2:30. Magnesium 1.3. AST 98 and ALT 62 and total bilirubin is elevated at 1.8 however is now INR that was ordered 01/25/2023 Patient clinically looks better, he is awake alert 3 he knows where his at and the date and time and person. He has insight into his illness, he follows commands, he looks his back to his baseline mental state although he still feels little tired and sleepy. He feels little groggy but no significant confusion. No headache dizziness weakness or numbness. He still complaining of from epigastric pain about 6/10 in severity, non- radiating, sharp in nature. No more vomiting. He does not have bowel movement but he was nothing by mouth overnight. I talked to the patient and he thinks he is willing to start diet but he likes to start slowly. Patient tolerated clear liquid diet, and we are going to advance to full liquid diet today. He feels little depressed and anxious No chest pain or dyspnea. He is hemodynamically stable, afebrile. Heart rate is improving down to 105 and 98. Labs showing improvement as well, WBC is down to 10.1. Sodium 129, AST and ALT are normal today while bilirubin is going down to 1.6. Lipase is coming down to 3748 down to 1564. His CIWA score is ranging between 124. Progress calcitonin is not significantly elevated at only 0.15. Last night patient was found to have what looks like diabetic ketoacidosis with an anion gap, glucosuria and ketonuria and was deficits on in the blood and he was placed on insulin drip per protocol and his abdomen and closed. Today he's sugar is controlled. Because he was nothing by mouth we stopped his Levemir. His hemoglobin A1c is interestingly normal at 5.1%. We will repeat hemoglobin A1c tomorrow. Also we will check a C-peptide. Patient informed about this sugar problem Serum phosphorus is severely low at 0.6 and his been replaced on protocol. Repeat phosphorus is still 0.6. Monitor and replace electrolytes. Sodium 129. He started on [place] for pain control. Because of this neltrexone was discon tinued. He remains on aggressive hydration. His home dose of propranolol 20 mg started yesterday. We will order CT of the abdomen psychiatric team consulted 01/26 His hemoglobin A1c is interestingly normal at 5.1%., Bicarb normal , Monitor of Insulin COntinue Fluids 01/27 Diet advanced, Lipase improved, Continue to withdraw from alochol 01/28 Patient is able to tolerate diet, continue to complain of withdrawal symptoms. Patient started on Atarax as well. To be monitored for another 24 hours Objective - Vital Signs Vital signs: Vital Signs Temp 97.9 F 01/28/23 11:20 Pulse 90 01/28/23 11:20 Resp 18 01/28/23 11:20 BP 148/98 01/28/23 11:20 Pulse Ox 98 01/28/23 11:20 FiO2 Intake & Output 01/27/23 01/28/23 01/28/23 18:59 06:59 18:59 Intake Total 240 240 598 Output Total 500 Balance -260 240 598 Intake: Oral 240 240 598 Output: Urine 500 Other: Voiding Method Bedside Commode Bedside Commode Toilet Diaper Diaper Bedside Commode Diaper # Voids 1 2 1 - Exam -GENERAL: The patient is alert and oriented x3, less drowsy at more awake and answered questions appropriately and follows commands not in any acute distress. Well developed, well nourished. HEENT: Pupils are round and equally reacting to light. EOMI. No scleral icterus. No conjunctival pallor. Normocephalic, atraumatic. No pharyngeal erythema. No thyromegaly. CARDIOVASCULAR: S1 and S2 present. No murmurs, rubs, or gallops. PULMONARY: Chest is clear to auscultation, no wheezing . no crackles. -ABDOMEN: Soft, mild epigastric tenderness with no guarding or rebound d tenderness, , normoactive bowel sounds. No palpable organomegaly. MUSCULOSKELETAL: No joint swelling or deformity. EXTREMITIES: No cyanosis, clubbing, or pedal edema. NEUROLOGICAL: Gross neurological examination did not reveal any focal deficits. SKIN: No rashes. no petechiae. - Labs CBC & Chem 7: 01/28/23 08:21 01/28/23 08:21 Labs: Abnormal Lab Results - Last 24 Hours (Table) 01/27/23 01/27/23 01/27/23 Range/Units 06:17 16:05 20:04 RBC (4.30-5.90) m/uL MCV (80.0-100.0) fL Plt Count 139 L D (150-450) k/uL Sodium (137-145) mmol/L Chloride (98-107) mmol/L Carbon Dioxide (22-30) mmol/L BUN (9-20) mg/dL Creatinine (0.66-1.25) mg/dL Glucose (74-99) mg/dL POC Glucose (mg/dL) 341 H 300 H (70-110) mg/dL Calcium (8.4-10.2) mg/dL 01/28/23 01/28/23 01/28/23 Range/Units 02:12 06:05 08:21 RBC 3.90 L (4.30-5.90) m/uL MCV 102.2 H (80.0-100.0) fL Plt Count (150-450) k/uL Sodium (137-145) mmol/L Chloride (98-107) mmol/L Carbon Dioxide (22-30) mmol/L BUN (9-20) mg/dL Creatinine (0.66-1.25) mg/dL Glucose (74-99) mg/dL POC Glucose (mg/dL) 197 H 183 H (70-110) mg/dL Calcium (8.4-10.2) mg/dL 06/05/23 06/05/23 Range/Units 08:21 11:33 RBC (4.30-5.90) m/uL MCV (80.0-100.0) fL Plt Count (150-450) k/uL Sodium 133 L (137-145) mmol/L Chloride 95 L (98-107) mmol/L Carbon Dioxide 31 H (22-30) mmol/L BUN 5 L (9-20) mg/dL Creatinine 0.54 L (0.66-1.25) mg/dL Glucose 301 H (74-99) mg/dL POC Glucose (mg/dL) 377 H (70-110) mg/dL Calcium 8.0 L (8.4-10.2) mg/dL Assessment and Plan Assessment: Assessment: * Alcohol use disorder with alcohol withdrawal at risk of delirium tremens. * Acute Pancreatitis * alcoholic transaminitis, resolved * Hyperglycemia DKA ruled out His hemoglobin A1c is normal at 5.1 percent. * Thrombocytopenia * Hypovolemic hyponatremia * depression with no suicidal ideation Plan: continue with CIWA protocol Continue with thiamine and vitamins Patient appropriately resuscitated with fluids, encourage oral intake Follow up with psychiatrist Discontinued Levemir and discontinue the NovoLog , HbA1c within normal limits insulin sliding scale with close monitoring of glucose Serum lipase and liver enzymes improving Labs and medication were reviewed. DVT prophylaxis: Subcutaneous heparin GI Prophylaxis: Pepcid
[2023-01-28 16:46] LABS: Glucose,Whole Blood 389 mg/dL (70-110)
[2023-01-28] MEDS: metFORMIN 500 MG TAB PO SCH (18:17)
[2023-01-28 19:11] LABS: C-Peptide 3.09 ng/mL
[2023-01-28 19:51] LABS: Glucose,Whole Blood 277 mg/dL (70-110)
[2023-01-28] MEDS: PROPRANOLOL 20 MG TAB PO SCH (19:55)
[2023-01-28] MEDS: INSULIN DETEMIR (LEVEMIR) 100 UNIT/ML SYR SQ SCH (20:51)
[2023-01-29 02:18] LABS: Glucose,Whole Blood 242 mg/dL (70-110)
[2023-01-29] MEDS: INSULIN ASPART (NovoLOG) 100 UNIT/ML VIAL SQ SCH ×5 (02:19→20:54)
[2023-01-29 05:56] LABS: Glucose,Whole Blood 146 mg/dL (70-110)
[2023-01-29] MEDS: metFORMIN 500 MG TAB PO SCH ×2 (06:06→16:56)
[2023-01-29] MEDS: HEPARIN SODIUM,PORCINE/PF 5,000 UNIT/0.5 ML SYRINGE SQ SCH ×2 (09:04→20:53)
[2023-01-29] MEDS: FOLIC ACID 1 MG TAB PO SCH (09:04)
[2023-01-29] MEDS: FAMOTIDINE 20 MG TAB PO SCH ×2 (09:04→20:53)
[2023-01-29] MEDS: ESCITALOPRAM 10 MG TAB PO SCH (09:04)
[2023-01-29] MEDS: THIAMINE 100 MG TAB PO SCH (09:04)
[2023-01-29] MEDS ORDERED: metFORMIN 500 MG TAB PO ONE (09:30)
[2023-01-29] MEDS ORDERED: metFORMIN 500 MG TAB PO SCH (09:30)
[2023-01-29 10:47] LABS: Appearance,Urine Clear (Clear); Bilirubin,Urine Negative (Negative); Blood,Urine Negative (Negative); Color,Urine Yellow; Glucose,Urine (UA) 1+ (Negative); Ketones,Urine Negative (Negative); Leukocyte Esterase,Urine Negative (Negative); Nitrite,Urine Negative (Negative); Protein,Urine Negative (Negative); Specific Gravity,Urine 1.009 (1.001-1.035)
[2023-01-29 11:33] LABS: Glucose,Whole Blood 220 mg/dL (70-110)
[2023-01-29 12:05] LABS: HCT 42.4 % (39.0-53.0); HGB 13.9 gm/dL (13.0-17.5); MCH 33.2 pg (25.0-35.0); MCHC 32.9 g/dL (31.0-37.0); Platelet Count 300 k/uL (150-450); RBC 4.19 m/uL (4.30-5.90); RDW 13.1 % (11.5-15.5); WBC 6.4 k/uL (3.8-10.6)
[2023-01-29 12:16] LABS: African American GFR (CKD) >90 (>60 ml/min/1.73 sqM); Anion Gap 10 mmol/L; Blood Urea Nitrogen 4 mg/dL (9-20); Carbon Dioxide 26 mmol/L (22-30); Chloride 98 mmol/L (98-107); Glucose 230 mg/dL (74-99); Magnesium 1.4 mg/dL (1.6-2.3); Non-African American GFR(CKD) >90 (>60 ml/min/1.73 sqM); Potassium 4.2 mmol/L (3.5-5.1); Sodium 134 mmol/L (137-145)
--- NOTE | 2023-01-29 12:32 | P.PN ---
Subjective Progress Note Date: 01/29/23 47 years old male with past medical history of hypertension, depression and alcohol use disorder. Patient is drowsy but he wakes up easily to verbal stimuli and answered questions appropriately although it looks sleepy throughout the encounter. He is oriented to time place and person, he states he came because he wanted to detox. Also has been complaining from epigastric abdominal pain about 5/10 in severity for the last 4-5 days, felt like sharp with no relieving or precipitating factors although advanced some movement. He vomited 4-6 times with no blood. He has normal bowel movement. His abdomen looks soft. However he denies any urinary neurological or cardiogenic symptoms. He does not smoke or use illicit drugs but he drinks to fifth day. Last drink was 9:30 this morning. Patient is a known history of depression however he denies any homicidal or suicidal ideation, he denies hallucination or delusions for me. He is tachycardic but not hypotensive and not febrile He has leukocytosis of 16.3, platelet count 112 is expected due to alcohol affect Sodium 129, glucose 2:30. Magnesium 1.3. AST 98 and ALT 62 and total bilirubin is elevated at 1.8 however is now INR that was ordered 01/25/2023 Patient clinically looks better, he is awake alert 3 he knows where his at and the date and time and person. He has insight into his illness, he follows commands, he looks his back to his baseline mental state although he still feels little tired and sleepy. He feels little groggy but no significant confusion. No headache dizziness weakness or numbness. He still complaining of from epigastric pain about 6/10 in severity, non- radiating, sharp in nature. No more vomiting. He does not have bowel movement but he was nothing by mouth overnight. I talked to the patient and he thinks he is willing to start diet but he likes to start slowly. Patient tolerated clear liquid diet, and we are going to advance to full liquid diet today. He feels little depressed and anxious No chest pain or dyspnea. He is hemodynamically stable, afebrile. Heart rate is improving down to 105 and 98. Labs showing improvement as well, WBC is down to 10.1. Sodium 129, AST and ALT are normal today while bilirubin is going down to 1.6. Lipase is coming down to 3748 down to 1564. His CIWA score is ranging between 124. Progress calcitonin is not significantly elevated at only 0.15. Last night patient was found to have what looks like diabetic ketoacidosis with an anion gap, glucosuria and ketonuria and was deficits on in the blood and he was placed on insulin drip per protocol and his abdomen and closed. Today he's sugar is controlled. Because he was nothing by mouth we stopped his Levemir. His hemoglobin A1c is interestingly normal at 5.1%. We will repeat hemoglobin A1c tomorrow. Also we will check a C-peptide. Patient informed about this sugar problem Serum phosphorus is severely low at 0.6 and his been replaced on protocol. Repeat phosphorus is still 0.6. Monitor and replace electrolytes. Sodium 129. He started on [place] for pain control. Because of this neltrexone was discon tinued. He remains on aggressive hydration. His home dose of propranolol 20 mg started yesterday. We will order CT of the abdomen psychiatric team consulted 01/26 His hemoglobin A1c is interestingly normal at 5.1%., Bicarb normal , Monitor of Insulin COntinue Fluids 01/27 Diet advanced, Lipase improved, Continue to withdraw from alochol 01/28 Patient is able to tolerate diet, continue to complain of withdrawal symptoms. Patient started on Atarax as well. To be monitored for another 24 hours 01/29 Patient seen and evaluated bedside, left leg abnormality noted magnesium 1.4. Magnesium replacement. Continue with education for hyperglycemia noted to have metabolic syndrome Objective - Vital Signs Vital signs: Vital Signs Temp 98.0 F 01/29/23 12:05 Pulse 80 01/29/23 12:05 Resp 16 01/29/23 12:05 BP 144/93 01/29/23 12:05 Pulse Ox 98 01/29/23 12:05 FiO2 Intake & Output 01/28/23 01/29/23 01/29/23 18:59 06:59 18:59 Intake Total 1798 221 Balance 1790 788 Intake: Oral 1840 866 Other: Voiding Method Toilet Toilet Toilet Bedside Commode Bedside Commode Urinal Diaper Diaper # Voids 2 2 1 - Exam -GENERAL: The patient is alert and oriented x3, less drowsy at more awake and answered questions appropriately and follows commands not in any acute distress. Well developed, well nourished. HEENT: Pupils are round and equally reacting to light. EOMI. No scleral icterus. No conjunctival pallor. Normocephalic, atraumatic. No pharyngeal erythema. No thyromegaly. CARDIOVASCULAR: S1 and S2 present. No murmurs, rubs, or gallops. PULMONARY: Chest is clear to auscultation, no wheezing . no crackles. -ABDOMEN: Soft, mild epigastric tenderness with no guarding or rebound d tenderness, , normoactive bowel sounds. No palpable organomegaly. MUSCULOSKELETAL: No joint swelling or deformity. EXTREMITIES: No cyanosis, clubbing, or pedal edema. NEUROLOGICAL: Gross neurological examination did not reveal any focal deficits. SKIN: No rashes. no petechiae. - Labs CBC & Chem 7: 01/29/23 11:30 01/29/23 11:30 Labs: Abnormal Lab Results - Last 24 Hours (Table) 01/28/23 01/28/23 01/29/23 Range/Units 16:43 19:50 02:15 RBC (4.30-5.90) m/uL MCV (80.0-100.0) fL Sodium (137-145) mmol/L BUN (9-20) mg/dL Creatinine (0.66-1.25) mg/dL Glucose (74-99) mg/dL POC Glucose (mg/dL) 389 H 277 H 242 H (70-110) mg/dL Magnesium (1.6-2.3) mg/dL Urine Glucose (UA) (Negative) 01/29/23 01/29/23 01/29/23 Range/Units 05:54 10:19 11:30 RBC 4.19 L (4.30-5.90) m/uL MCV 101.0 H (80.0-100.0) fL Sodium (137-145) mmol/L BUN (9-20) mg/dL Creatinine (0.66-1.25) mg/dL Glucose (74-99) mg/dL POC Glucose (mg/dL) 146 H (70-110) mg/dL Magnesium (1.6-2.3) mg/dL Urine Glucose (UA) 1+ H (Negative) 01/29/23 01/29/23 Range/Units 11:30 11:31 RBC (4.30-5.90) m/uL MCV (80.0-100.0) fL Sodium 134 L (137-145) mmol/L BUN 4 L (9-20) mg/dL Creatinine 0.41 L (0.66-1.25) mg/dL Glucose 230 H (74-99) mg/dL POC Glucose (mg/dL) 220 H (70-110) mg/dL Magnesium 1.4 L (1.6-2.3) mg/dL Urine Glucose (UA) (Negative) Assessment and Plan Assessment: Assessment: * Alcohol use disorder with alcohol withdrawal at risk of delirium tremens. * Acute Pancreatitis improved * alcoholic transaminitis, resolved * Metabolic syndrome Hyperglycemia DKA ruled out His hemoglobin A1c is normal at 5.1 percent. * Thrombocytopenia * Hypovolemic hyponatremia * depression with no suicidal ideation * Hypomagnesemia Plan: continue with CIWA protocol, patient to be improved as far as alcohol withdrawal goes Continue with thiamine and vitamins Patient appropriately resuscitated with fluids, encourage oral intake Follow up with psychiatrist HbA1c within normal limits, patient on correctional insulin Lantus, started on metformin upon discharge patient to go home on metformin with local meter and follow-up HbA1c in 3 months insulin sliding scale with close monitoring of glucose Serum lipase and liver enzymes improving Labs and medication were reviewed. DVT prophylaxis: Subcutaneous heparin GI Prophylaxis: Pepcid Plan to discharge 01/30
[2023-01-29] MEDS: MAGNESIUM SULFATE-D5W PMX 1 GM in DEXTROSE/WATER 1 100ML.BAG IVPB SCH ×2 (12:42→13:45)
[2023-01-29 16:15] LABS: Glucose,Whole Blood 273 mg/dL (70-110)
[2023-01-29 19:58] LABS: Glucose,Whole Blood 189 mg/dL (70-110)
[2023-01-29] MEDS: MAGNESIUM OXIDE 400 MG TAB PO SCH (20:53)
[2023-01-29] MEDS: INSULIN DETEMIR (LEVEMIR) 100 UNIT/ML SYR SQ SCH (20:55)
[2023-01-29] MEDS: PROPRANOLOL 20 MG TAB PO SCH (20:55)
[2023-01-30 01:52] LABS: Glucose,Whole Blood 174 mg/dL (70-110)
[2023-01-30 05:58] LABS: Glucose,Whole Blood 151 mg/dL (70-110)
[2023-01-30] MEDS: metFORMIN 500 MG TAB PO SCH (06:13)
[2023-01-30] MEDS: INSULIN ASPART (NovoLOG) 100 UNIT/ML VIAL SQ SCH ×3 (06:14→12:01)
[2023-01-30] MEDS: ESCITALOPRAM 10 MG TAB PO SCH (10:04)
[2023-01-30] MEDS: FOLIC ACID 1 MG TAB PO SCH (10:04)
[2023-01-30] MEDS: MAGNESIUM OXIDE 400 MG TAB PO SCH (10:04)
[2023-01-30] MEDS: FAMOTIDINE 20 MG TAB PO SCH (10:04)
[2023-01-30] MEDS: THIAMINE 100 MG TAB PO SCH (10:04)
[2023-01-30] MEDS: HEPARIN SODIUM,PORCINE/PF 5,000 UNIT/0.5 ML SYRINGE SQ SCH (10:05)
[2023-01-30 11:19] LABS: HCT 42.2 % (39.0-53.0); HGB 13.5 gm/dL (13.0-17.5); MCH 32.8 pg (25.0-35.0); MCV 102.5 fL (80.0-100.0); Macrocytosis Slight; Mean Platelet Volume 9.3; Platelet Count 383 k/uL (150-450); RBC 4.12 m/uL (4.30-5.90); RDW 13.7 % (11.5-15.5); WBC 6.2 k/uL (3.8-10.6)
[2023-01-30 11:19] LABS: Glucose,Whole Blood 265 mg/dL (70-110)
[2023-01-30 11:43] LABS: African American GFR (CKD) >90 (>60 ml/min/1.73 sqM); Anion Gap 8 mmol/L; Blood Urea Nitrogen 6 mg/dL (9-20); Calcium 8.8 mg/dL (8.4-10.2); Carbon Dioxide 30 mmol/L (22-30); Chloride 97 mmol/L (98-107); Glucose 221 mg/dL (74-99); Magnesium 1.9 mg/dL (1.6-2.3); Non-African American GFR(CKD) >90 (>60 ml/min/1.73 sqM); Potassium 5.3 mmol/L (3.5-5.1); Sodium 135 mmol/L (137-145)
[2023-01-30] MEDS ORDERED: ALBUTEROL NEB (CONC) 2.5 MG/0.5 ML INHALATION ONE (11:50)
[2023-01-30] MEDS ORDERED: SODIUM ZIRCONIUM CYCLOSILICATE 10 GM PACKET PO ONE (11:50)
[2023-01-30] MEDS ORDERED: INSULIN REGULAR 100 UNIT/ML VIAL (IV) IV ONE (11:50)
[2023-01-30 12:56] VITALS: BP 140/99; RESP 16; TEMP 98.1
[2023-01-30] MEDS ORDERED: SODIUM CHLORIDE 0.9% NEBULIZ 3 ML INHALATION ONE (12:57)
--- NOTE | 2023-01-30 13:30 | P.DS ---
Providers Date of admission: 01/24/23 14:42 Expected date of discharge: 01/30/23 Attending physician: Jorge Rodriguez MD Consults: 01/24/23 13:47 Consult Physician Routine Consulting Provider: Psychiatry - [facility] Psychiatry Consult Reason/Comments: Depressive disorder, alcohol abuse Do you want consulting provider notified?: Yes Primary care physician: Stated None Hospital Course: 47 years old male with past medical history of hypertension, depression and alcohol use disorder. Patient is drowsy but he wakes up easily to verbal stimuli and answered questions appropriately although it looks sleepy throughout the encounter. He is oriented to time place and person, he states he came because he wanted to detox. Also has been complaining from epigastric abdominal pain about 5/10 in severity for the last 4-5 days, felt like sharp with no relieving or precipitating factors although advanced some movement. He vomited 4-6 times with no blood. He has normal bowel movement. His abdomen looks soft. However he denies any urinary neurological or cardiogenic symptoms. He does not smoke or use illicit drugs but he drinks to fifth day. Last drink was 9:30 this morning. Patient is a known history of depression however he denies any homicidal or suicidal ideation, he denies hallucination or delusions for me. He is tachycardic but not hypotensive and not febrile He has leukocytosis of 16.3, platelet count 112 is expected due to alcohol affect Sodium 129, glucose 2:30. Magnesium 1.3. AST 98 and ALT 62 and total bilirubin is elevated at 1.8 however is now INR that was ordered 01/25/2023 Patient clinically looks better, he is awake alert 3 he knows where his at and the date and time and person. He has insight into his illness, he follows commands, he looks his back to his baseline mental state although he still feels little tired and sleepy. He feels little groggy but no significant confusion. No headache dizziness weakness or numbness. He still complaining of from epigastric pain about 6/10 in severity, non- radiating, sharp in nature. No more vomiting. He does not have bowel movement but he was nothing by mouth overnight. I talked to the patient and he thinks he is willing to start diet but he likes to start slowly. Patient tolerated clear liquid diet, and we are going to advance to full liquid diet today. He feels little depressed and anxious No chest pain or dyspnea. He is hemodynamically stable, afebrile. Heart rate is improving down to 105 and 98. Labs showing improvement as well, WBC is down to 10.1. Sodium 129, AST and ALT are normal today while bilirubin is going down to 1.6. Lipase is coming down to 3748 down to 1564. His CIWA score is ranging between 124. Progress calcitonin is not significantly elevated at only 0.15. Last night patient was found to have what looks like diabetic ketoacidosis with an anion gap, glucosuria and ketonuria and was deficits on in the blood and he was placed on insulin drip per protocol and his abdomen and closed. Today he's sugar is controlled. Because he was nothing by mouth we stopped his Levemir. His hemoglobin A1c is interestingly normal at 5.1%. We will repeat hemoglobin A1c tomorrow. Also we will check a C-peptide. Patient informed about this sugar problem Serum phosphorus is severely low at 0.6 and his been replaced on protocol. Repeat phosphorus is still 0.6. Monitor and replace electrolytes. Sodium 129. He started on [place] for pain control. Because of this neltrexone was discontinued. He remains on aggressive hydration. His home dose of propranolol 20 mg started yesterday. We will order CT of the abdomen psychiatric team consulted 01/26 His hemoglobin A1c is interestingly normal at 5.1%., Bicarb normal , Monitor of Insulin COntinue Fluids 01/27 Diet advanced, Lipase improved, Continue to withdraw from alochol 01/28 Patient is able to tolerate diet, continue to complain of withdrawal symptoms. Patient started on Atarax as well. To be monitored for another 24 hours 01/29 Patient seen and evaluated bedside, lab abnormality noted magnesium 1.4. Magnesium replacement. Continue with education for hyperglycemia noted to have metabolic syndrome 01/30 Patient seen and evaluated bedside, not having withdrawal symptoms. Patient says he's feeling better. Counseled regarding use of metformin and blood glucose. Counseled regarding follow-up with PCP electrolytes replaced and corrected. Potassium within normal limits encouraged improved diet upon discharge -GENERAL: The patient is alert and oriented x3, less drowsy at more awake and answered questions appropriately and follows commands not in any acute distress. Well developed, well nourished. HEENT: Pupils are round and equally reacting to light. EOMI. No scleral icterus. No conjunctival pallor. Normocephalic, atraumatic. No pharyngeal erythema. No thyromegaly. CARDIOVASCULAR: S1 and S2 present. No murmurs, rubs, or gallops. PULMONARY: Chest is clear to auscultation, no wheezing . no crackles. -ABDOMEN: Soft, mild epigastric tenderness with no guarding or rebound d tenderness, , normoactive bowel sounds. No palpable organomegaly. MUSCULOSKELETAL: No joint swelling or deformity. EXTREMITIES: No cyanosis, clubbing, or pedal edema. NEUROLOGICAL: Gross neurological examination did not reveal any focal deficits. SKIN: No rashes. no petechiae. Assessment: Assessment: * Alcohol use disorder with alcohol withdrawal at risk of delirium tremens. * Acute Pancreatitis improved * alcoholic transaminitis, resolved * Metabolic syndrome Hyperglycemia DKA ruled out His hemoglobin A1c is normal at 5.1 percent. * Thrombocytopenia * Hypovolemic hyponatremia * depression with no suicidal ideation * Hypomagnesemia Plan: continue with CIWA protocol, patient to be improved as far as alcohol withdrawal goes Received multivitamin while inpatient Patient appropriately resuscitated with fluids, encourage oral intake Follow up with psychiatrist HbA1c within normal limits, patient on correctional insulin Lantus while inpatient>> started on metformin upon discharge patient to go home on metformin with local meter and follow-up HbA1c in 3 months, follow up with PCP Serum lipase and liver enzymes improving Labs and medication were reviewed Patient Condition at Discharge: Fair Plan - Discharge Summary Discharge Rx Participant: No New Discharge Prescriptions: New metFORMIN HCL [Glucophage] 1,000 mg PO BID-W/MEALS 30 Days #60 tab Continue Thiamine [Vitamin B-1] 100 mg PO DAILY Naltrexone HCl [Revia] 50 mg PO DAILY Escitalopram Oxalate [Lexapro] 10 mg PO DAILY Folic Acid(Unknown) 1 tab PO DAILY hydroCHLOROthiazide 12.5 mg PO DAILY Propranolol [Inderal] 20 mg PO HS Discharge Medication List Escitalopram Oxalate [Lexapro] 10 mg PO DAILY 01/24/23 [History] Folic Acid(Unknown) 1 tab PO DAILY 01/24/23 [History] Naltrexone HCl [Revia] 50 mg PO DAILY 01/24/23 [History] Propranolol [Inderal] 20 mg PO HS 01/24/23 [History] Thiamine [Vitamin B-1] 100 mg PO DAILY 01/24/23 [History] hydroCHLOROthiazide 12.5 mg PO DAILY 01/24/23 [History] metFORMIN HCL [Glucophage] 1,000 mg PO BID-W/MEALS 30 Days #60 tab 01/30/23 [Rx] Follow up Appointment(s)/Referral(s): None,Stated [Primary Care Provider] - 1-2 days
[2023-01-30 16:03] VITALS: PULSE 79
== END 2023-01-30 15:49 | disposition home or self-care (01) | DRG 775 ==
LOC: EC 11:10 → 4SSUR 14:42 → 3SCARD 18:06
PROVIDERS: ADMIT Internal Medicine; ATTEND Internal Medicine
DX: F10.239 Alcohol dependence with withdrawal, unspecified (principal); K85.20 Alcohol induced acute pancreatitis without necrosis or infection; D69.6 Thrombocytopenia, unspecified; Z28.310 Unvaccinated for COVID-19; E88.81 Metabolic syndrome and other insulin resistance; E87.1 Hypo-osmolality and hyponatremia; R73.9 Hyperglycemia, unspecified; E86.1 Hypovolemia; E86.0 Dehydration; F32.9 Major depressive disorder, single episode, unspecified; E83.42 Hypomagnesemia; E87.6 Hypokalemia; I10 Essential (primary) hypertension; Y90.6 Blood alcohol level of 120-199 mg/100 ml; Z79.899 Other long term (current) drug therapy
CPT/HCPCS: 36415; 74150; 80048; 80051; 80053; 80076; 80320; 81001; 81003; 82009; 82565; 82947; 83036; 83690; 83735; 84100; 84132; 84145; 84520; 84681; 85025; 85027; 85610; 93005; 94640; 96361; 96365; 96372; 96375; 99285

== ENCOUNTER 2023-03-01 21:25 | Emergency (ER) | payer OTHER ==
[2023-03-01 21:30] LABS: Glucose,Whole Blood 416 mg/dL (70-110)
[2023-03-01 21:31] VITALS: RESP 18
[2023-03-01] MEDS ORDERED: SODIUM CHLORIDE 0.9% 1,000 ML IV STA (21:50)
[2023-03-01 21:52] LABS: Appearance,Urine Clear (Clear); Bilirubin,Urine Negative (Negative); Blood,Urine Negative (Negative); Color,Urine Light Yellow; Glucose,Urine (UA) 4+ (Negative); Ketones,Urine Negative (Negative); Leukocyte Esterase,Urine Negative (Negative); Nitrite,Urine Negative (Negative); PH, Urine 6.5 (5.0-8.0); Protein,Urine Negative (Negative); Urobilinogen,Urine <2.0 mg/dL (<2.0)
--- NOTE | 2023-03-01 21:52 | ED ---
General Adult HPI - General Chief complaint: Recheck/Abnormal Lab/Rx Stated complaint: Blood Sugar Time Seen by Provider: 03/01/23 21:43 Source: patient Mode of arrival: ambulatory Limitations: no limitations - History of Present Illness Initial comments: Dictation was produced using [employer] dictation software. please excuse any grammatical, word or spelling errors. Chief Complaint: 47-year-old male presents emergency department for hyperglycemia History of Present Illness: Is 47-year-old male presents emergency Department with hyperglycemia. Patient was found to have elevated blood sugars recently. He was prescribed metformin discharge. Had a follow-up appointment with primary care doctor. More blood work was performed. As a follow-up appointment next week for further action is told to seek medical attention if his blood sugar was above 300. Patient complaining of dry mouth and some mild dizziness. Does have a very mild really noticeable left abdominal pain. Denies any diarrhea. No fevers. The ROS documented in this emergency department record has been reviewed and confirmed by me. Those systems with pertinent positive or negative responses have been documented in the HPI. All other systems are other negative and/or noncontributory. - Related Data Home Medications Medication Instructions Recorded Confirmed Escitalopram Oxalate [Lexapro] 10 mg PO DAILY 01/24/23 01/24/23 Folic Acid(Unknown) 1 tab PO DAILY 01/24/23 01/24/23 Naltrexone HCl [Revia] 50 mg PO DAILY 01/24/23 01/24/23 Propranolol [Inderal] 20 mg PO HS 01/24/23 01/24/23 Thiamine [Vitamin B-1] 100 mg PO DAILY 01/24/23 01/24/23 hydroCHLOROthiazide 12.5 mg PO DAILY 01/24/23 01/24/23 Previous Rx's Medication Instructions Recorded metFORMIN HCL [Glucophage] 1,000 mg PO BID-W/MEALS 30 Days 01/30/23 #60 tab Allergies Allergy/AdvReac Type Severity Reaction Status Date / Time No Known Allergies Allergy Verified 03/01/23 21:31 Review of Systems ROS Statement: Those systems with pertinent positive or pertinent negative responses have been documented in the HPI. ROS Other: All systems not noted in ROS Statement are negative. Past Medical History Past Medical History: Hypertension History of Any Multi-Drug Resistant Organisms: None Reported Past Surgical History: Appendectomy, Hernia Repair Past Anesthesia/Blood Transfusion Reactions: No Reported Reaction Past Psychological History: Depression Smoking Status: Never smoker Past Alcohol Use History: None Reported Past Drug Use History: None Reported - Past Family History Mother Family Medical History: Hypertension Father Family Medical History: Hypertension General Exam - General Exam Comments Initial Comments: PHYSICAL EXAM: General Impression: Alert and oriented x3, not in acute distress HEENT: Normocephalic atraumatic, extra-ocular movements intact, pupils equal and reactive to light bilaterally, mucous membranes moist. Cardiovascular: Heart regular rate and rhythm Chest: Able to complete full sentences, no retractions, no tachypnea Abdomen: abdomen soft, non-tender, non-distended, no organomegaly Musculoskeletal: Pulses present and equal in all extremities, no peripheral edema Motor: no focal deficits noted Neurological: CN II-XII grossly intact, no focal motor or sensory deficits noted Skin: Intact with no visualized rashes Psych: Normal affect and mood Limitations: no limitations Course Vital Signs 03/01/23 03/01/23 21:27 22:55 Temperature 99 F Pulse Rate 72 73 Respiratory 18 18 Rate Blood Pressure 161/104 146/106 O2 Sat by Pulse 96 96 Oximetry Medical Decision Making - Medical Decision Making Was pt. sent in by a medical professional or institution (, PA, GRILL ATTENDANT, urgent care, hospital, or alf...) When possible be specific @ -No Did you speak to anyone other than the patient for history (EMS, parent, family, police, friend...)? What history was obtained from this source @ -No Did you review nursing and triage notes (agree or disagree)? Why? @ -I reviewed and agree with nursing and triage notes Were old charts reviewed (outside hosp., previous admission, EMS record, old EKG, old radiological studies, urgent care reports/EKG's, alf records)? Report findings @ -No old charts were reviewed Differential Diagnosis (chest pain, altered mental status, abdominal pain women, abdominal pain men, vaginal bleeding, musculoskeletal, weakness, fever, dyspnea, syncope, headache, dizziness, GI bleed, back pain, seizure, CVA, palp atations, mental health)? @ -not applicable EKG interpreted by me (3pts min.). @ -None done X-rays interpreted by me (1pt min.). @ -None done CT interpreted by me (1pt min.). @ -None done U/S interpreted by me (1pt. min.). @ -None done What testing was considered but not performed or refused? (CT, X-rays, U/S, labs)? Why? @ -None What meds were considered but not given or refused? Why? @ -None Did you discuss the management of the patient with other professionals (professionals i.e. Dr., PA, GRILL ATTENDANT, lab, RT, psych nurse, social media developer, roller bearing inspector, teacher, environmental technical officer, insurance case manager)? Give summary @ -No Was smoking cessation discussed for >3mins.? @ -No Was critical care preformed (if so, how long)? @ -No Were there social determinants of health that impacted care today? How? (Homelessness, low income, unemployed, alcoholism, drug addiction, transportation, low edu. Level, literacy, decrease access to med. care, residential, rehab)? @ -No Was there de-escalation of care discussed even if they declined (Discuss DNR or withdrawal of care, Hospice)? DNR status @ -No What co-morbidities impacted this encounter? (DM, HTN, Smoking, COPD, CAD, C ancer, CVA, ARF, Chemo, Hep., AIDS, mental health diagnosis, sleep apnea, morbid obesity)? @ -None Was patient admitted / discharged? Hospital course, mention meds given and route, prescriptions, significant lab abnormalities, going to OR and other pertinent info. @ -47-year-old male with recently diagnosed hyperglycemia presents to emergency Department for hyperglycemia. Monitor his sugars. Labs evaluation obtained. Initial blood glucose is 416. Patient given IV fluids and IV insulin with improvement in 205. Urinalysis shows 4+ glucose. Patient observed in emergency department. He has an appointment follow-up with primary care doctor for outpatient management of hyperglycemia. Undiagnosed new problem with uncertain prognosis? @ -No Drug Therapy requiring intensive monitoring for toxicity (Heparin, Nitro, Insulin, Cardizem)? @ -No Were any procedures done? @ -No Diagnosis/symptom? Acute, or Chronic, or Acute on Chronic? Uncomplicated (without systemic symptoms) or Complicated (systemic symptoms)? @ -Hyperglycemia Side effects of treatment? @ -No Exacerbation, Progression, or Severe Exacerbation? @ -No Poses a threat to life or bodily function? How? (Chest pain, [place], [place], pneumonia, PE, COPD, DKA, ARF, appy, cholecystitis, CVA, Diverticulitis, Homicidal, Suicidal, threat to staff... and all critical care pts) @ -No - Lab Data Result diagrams: 03/01/23 21:33 03/01/23 21:33 Lab Results 03/01/23 03/01/23 03/01/23 Range/Units 21:28 21:33 21:33 WBC 11.2 H (3.8-10.6) k/uL RBC 4.50 (4.30-5.90) m/uL Hgb 15.1 (13.0-17.5) gm/dL Hct 44.8 (39.0-53.0) % MCV 99.4 (80.0-100.0) fL MCH 33.4 (25.0-35.0) pg MCHC 33.6 (31.0-37.0) g/dL RDW 12.8 (11.5-15.5) % Plt Count 334 (150-450) k/uL MPV 8.1 Neutrophils % 65 % Lymphocytes % 23 % Monocytes % 7 % Eosinophils % 3 % Basophils % 0 % Neutrophils # 7.3 (1.3-7.7) k/uL Lymphocytes # 2.6 (1.0-4.8) k/uL Monocytes # 0.8 (0-1.0) k/uL Eosinophils # 0.3 (0-0.7) k/uL Basophils # 0.0 (0-0.2) k/uL Sodium (137-145) mmol/L Potassium (3.5-5.1) mmol/L Chloride (98-107) mmol/L Carbon Dioxide (22-30) mmol/L Anion Gap mmol/L BUN (9-20) mg/dL Creatinine (0.66-1.25) mg/dL Est GFR (CKD-EPI)AfAm (>60 ml/min/1.73 sqM) Est GFR (CKD-EPI)NonAf (>60 ml/min/1.73 sqM) Glucose (74-99) mg/dL POC Glucose (mg/dL) 416 H (70-110) mg/dL POC Glu Gas Shovel Operator ID Dougie, Nickolas Calcium (8.4-10.2) mg/dL Total Bilirubin (0.2-1.3) mg/dL AST (17-59) U/L ALT (4-49) U/L Alkaline Phosphatase (38-126) U/L Total Protein (6.3-8.2) g/dL Albumin (3.5-5.0) g/dL Amylase (30-110) U/L Lipase (23-300) U/L Urine Color Light Yellow Urine Appearance Clear (Clear) Urine pH 6.5 (5.0-8.0) Ur Specific [place] 1.030 (1.001-1.035) Urine Protein Negative (Negative) Urine Glucose (UA) 4+ H (Negative) Urine Ketones Negative (Negative) Urine Blood Negative (Negative) Urine Nitrite Negative (Negative) Urine Bilirubin Negative (Negative) Urine Urobilinogen <2.0 (<2.0) mg/dL Ur Leukocyte Esterase Negative (Negative) 03/01/23 03/01/23 Range/Units 21:33 22:58 WBC (3.8-10.6) k/uL RBC (4.30-5.90) m/uL Hgb (13.0-17.5) gm/dL Hct (39.0-53.0) % MCV (80.0-100.0) fL MCH (25.0-35.0) pg MCHC (31.0-37.0) g/dL RDW (11.5-15.5) % Plt Count (150-450) k/uL MPV Neutrophils % % Lymphocytes % % Monocytes % % Eosinophils % % Basophils % % Neutrophils # (1.3-7.7) k/uL Lymphocytes # (1.0-4.8) k/uL Monocytes # (0-1.0) k/uL Eosinophils # (0-0.7) k/uL Basophils # (0-0.2) k/uL Sodium 131 L (137-145) mmol/L Potassium 4.6 (3.5-5.1) mmol/L Chloride 97 L (98-107) mmol/L Carbon Dioxide 24 (22-30) mmol/L Anion Gap 10 mmol/L BUN 9 (9-20) mg/dL Creatinine 0.41 L (0.66-1.25) mg/dL Est GFR (CKD-EPI)AfAm >90 (>60 ml/min/1.73 sqM) Est GFR (CKD-EPI)NonAf >90 (>60 ml/min/1.73 sqM) Glucose 435 H (74-99) mg/dL POC Glucose (mg/dL) 205 H (70-110) mg/dL POC Glu Gas Shovel Operator Nicolette Briggs Calcium 10.0 (8.4-10.2) mg/dL Total Bilirubin 0.2 (0.2-1.3) mg/dL AST 23 (17-59) U/L ALT 27 (4-49) U/L Alkaline Phosphatase 73 (38-126) U/L Total Protein 6.9 (6.3-8.2) g/dL Albumin 4.0 (3.5-5.0) g/dL Amylase 82 (30-110) U/L Lipase 89 (23-300) U/L Urine Color Urine Appearance (Clear) Urine pH (5.0-8.0) Ur Specific [place] (1.001-1.035) Urine Protein (Negative) Urine Glucose (UA) (Negative) Urine Ketones (Negative) Urine Blood (Negative) Urine Nitrite (Negative) Urine Bilirubin (Negative) Urine Urobilinogen (<2.0) mg/dL Ur Leukocyte Esterase (Negative) Disposition Clinical Impression: Hyperglycemia Disposition: HOME SELF-CARE Condition: Good Instructions (If sedation given, give patient instructions): Diabetic Hyperglycemia (ED) Is patient prescribed a controlled substance at d/c from ED?: No Referrals: Nonstaff,Physician [REFERRING] - 1-2 days Time of Disposition: 23:08
[2023-03-01 21:53] LABS: Basophils % (A) 0 %; Eosinophils # (A) 0.3 k/uL (0-0.7); Eosinophils % (A) 3 %; HCT 44.8 % (39.0-53.0); HGB 15.1 gm/dL (13.0-17.5); Lymphocytes # (A) 2.6 k/uL (1.0-4.8); Lymphocytes % (A) 23 %; MCH 33.4 pg (25.0-35.0); MCHC 33.6 g/dL (31.0-37.0); MCV 99.4 fL (80.0-100.0); Mean Platelet Volume 8.1; Monocytes # (A) 0.8 k/uL (0-1.0); Monocytes % (A) 7 %; Neutrophils # (A) 7.3 k/uL (1.3-7.7); Neutrophils % (A) 65 %; Platelet Count 334 k/uL (150-450); RDW 12.8 % (11.5-15.5); WBC 11.2 k/uL (3.8-10.6)
[2023-03-01 22:05] LABS: ALT 27 U/L (4-49); AST 23 U/L (17-59); African American GFR (CKD) >90 (>60 ml/min/1.73 sqM); Alkaline Phosphatase 73 U/L (38-126); Amylase 82 U/L (30-110); Anion Gap 10 mmol/L; Blood Urea Nitrogen 9 mg/dL (9-20); Carbon Dioxide 24 mmol/L (22-30); Chloride 97 mmol/L (98-107); Glucose 435 mg/dL (74-99); Lipase 89 U/L (23-300); Non-African American GFR(CKD) >90 (>60 ml/min/1.73 sqM); Potassium 4.6 mmol/L (3.5-5.1); Sodium 131 mmol/L (137-145); Total Bilirubin 0.2 mg/dL (0.2-1.3); Total Protein 6.9 g/dL (6.3-8.2)
[2023-03-01] MEDS ORDERED: INSULIN REGULAR 100 UNIT/ML VIAL (IV) IV ONE (22:20)
[2023-03-01 23:00] LABS: Glucose,Whole Blood 205 mg/dL (70-110)
[2023-03-01 23:46] LABS: Glucose,Whole Blood 105 mg/dL (70-110)
[2023-03-01 23:58] VITALS: BP 139/95; PULSE 72; TEMP 97.9
== END 2023-03-01 23:58 | disposition home or self-care (01) ==
LOC: EC 21:25
DX: R73.9 Hyperglycemia, unspecified (principal); I10 Essential (primary) hypertension; F32.A Depression, unspecified; Z79.899 Other long term (current) drug therapy
CPT/HCPCS: 36415; 80053; 81003; 82150; 83690; 85025; 96360; 99285

== ENCOUNTER 2023-03-03 20:47 | Emergency (ER) | payer OTHER ==
[2023-03-03 20:56] LABS: Glucose,Whole Blood 464 mg/dL (70-110)
[2023-03-03] MEDS ORDERED: SODIUM CHLORIDE 0.9% 2,000 ML IV ONE (21:44)
[2023-03-03 22:37] LABS: Basophils % (A) 0 %; Eosinophils # (A) 0.4 k/uL (0-0.7); Eosinophils % (A) 3 %; HCT 43.4 % (39.0-53.0); HGB 14.5 gm/dL (13.0-17.5); Lymphocytes # (A) 2.5 k/uL (1.0-4.8); Lymphocytes % (A) 20 %; MCH 32.6 pg (25.0-35.0); MCHC 33.3 g/dL (31.0-37.0); MCV 97.9 fL (80.0-100.0); Mean Platelet Volume 8.4; Monocytes # (A) 0.7 k/uL (0-1.0); Monocytes % (A) 6 %; Neutrophils # (A) 8.5 k/uL (1.3-7.7); Neutrophils % (A) 69 %; Platelet Count 312 k/uL (150-450); RBC 4.44 m/uL (4.30-5.90); RDW 13.1 % (11.5-15.5); WBC 12.4 k/uL (3.8-10.6)
[2023-03-03 22:40] LABS: Appearance,Urine Clear (Clear); Bilirubin,Urine Negative (Negative); Blood,Urine Negative (Negative); Color,Urine Light Yellow; Glucose,Urine (UA) 4+ (Negative); Ketones,Urine Negative (Negative); Leukocyte Esterase,Urine Negative (Negative); Nitrite,Urine Negative (Negative); PH, Urine 6.5 (5.0-8.0); Protein,Urine Negative (Negative); Specific Gravity,Urine 1.028 (1.001-1.035); Urobilinogen,Urine <2.0 mg/dL (<2.0)
[2023-03-03 22:53] LABS: ALT 32 U/L (4-49); AST 27 U/L (17-59); African American GFR (CKD) >90 (>60 ml/min/1.73 sqM); Albumin 3.7 g/dL (3.5-5.0); Alkaline Phosphatase 77 U/L (38-126); Anion Gap 11 mmol/L; Blood Urea Nitrogen 17 mg/dL (9-20); Calcium 9.6 mg/dL (8.4-10.2); Carbon Dioxide 22 mmol/L (22-30); Chloride 97 mmol/L (98-107); Glucose 416 mg/dL (74-99); Non-African American GFR(CKD) >90 (>60 ml/min/1.73 sqM); Potassium 4.6 mmol/L (3.5-5.1); Sodium 130 mmol/L (137-145); Total Bilirubin 0.2 mg/dL (0.2-1.3); Total Protein 6.3 g/dL (6.3-8.2)
[2023-03-03 23:22] LABS: Glucose,Whole Blood 274 mg/dL (70-110)
[2023-03-03] MEDS ORDERED: INSULIN REGULAR 100 UNIT/ML VIAL (IV) SQ STA (23:37)
[2023-03-04 00:50] LABS: ALT 29 U/L (4-49); AST 25 U/L (17-59); African American GFR (CKD) >90 (>60 ml/min/1.73 sqM); Albumin 3.3 g/dL (3.5-5.0); Alkaline Phosphatase 57 U/L (38-126); Anion Gap 7 mmol/L; Blood Urea Nitrogen 15 mg/dL (9-20); Calcium 8.7 mg/dL (8.4-10.2); Carbon Dioxide 25 mmol/L (22-30); Chloride 101 mmol/L (98-107); Glucose 253 mg/dL (74-99); Non-African American GFR(CKD) >90 (>60 ml/min/1.73 sqM); Potassium 4.4 mmol/L (3.5-5.1); Sodium 133 mmol/L (137-145); Total Bilirubin 0.3 mg/dL (0.2-1.3); Total Protein 5.9 g/dL (6.3-8.2)
--- NOTE | 2023-03-04 01:05 | ED ---
General Adult HPI - General Chief complaint: Recheck/Abnormal Lab/Rx Stated complaint: Hyperglycemia Time Seen by Provider: 03/03/23 21:05 Source: patient Mode of arrival: ambulatory Limitations: no limitations - History of Present Illness Initial comments: This patient is a 47-year-old man with history of diabetes who presents because his blood sugar readings have been high. The patient states she has been having some fatigue and urinating frequently. He denies symptoms of infection, no fever or chills, cough, dyspnea. No chest pain. No change in urination or bowel movements. The patient states he has been taking his medications. -: hour(s) Severity scale (1-10): 0 Consistency: constant Improves with: none Worsens with: none Treatments Prior to Arrival: none - Related Data Home Medications Medication Instructions Recorded Confirmed Escitalopram Oxalate [Lexapro] 10 mg PO DAILY 01/24/23 01/24/23 Folic Acid(Unknown) 1 tab PO DAILY 01/24/23 01/24/23 Naltrexone HCl [Revia] 50 mg PO DAILY 01/24/23 01/24/23 Propranolol [Inderal] 20 mg PO HS 01/24/23 01/24/23 Thiamine [Vitamin B-1] 100 mg PO DAILY 01/24/23 01/24/23 hydroCHLOROthiazide 12.5 mg PO DAILY 01/24/23 01/24/23 Previous Rx's Medication Instructions Recorded metFORMIN HCL [Glucophage] 1,000 mg PO BID-W/MEALS 30 Days 01/30/23 #60 tab Allergies Allergy/AdvReac Type Severity Reaction Status Date / Time No Known Allergies Allergy Verified 03/01/23 21:31 Review of Systems ROS Statement: Those systems with pertinent positive or pertinent negative responses have been documented in the HPI. ROS Other: All systems not noted in ROS Statement are negative. Constitutional: Denies: fever, chills, weakness Eyes: Denies: vision change Respiratory: Denies: cough, dyspnea Cardiovascular: Denies: chest pain, palpitations Endocrine: Reports: fatigue, polyuria Gastrointestinal: Denies: abdominal pain, vomiting, diarrhea, constipation, melena Genitourinary: Denies: dysuria, frequency, hematuria Musculoskeletal: Denies: back pain Skin: Denies: rash Neurological: Denies: headache, weakness, confusion Past Medical History Past Medical History: Hypertension History of Any Multi-Drug Resistant Organisms: None Reported Past Surgical History: Appendectomy, Hernia Repair Past Anesthesia/Blood Transfusion Reactions: No Reported Reaction Past Psychological History: Depression Smoking Status: Never smoker Past Alcohol Use History: None Reported Past Drug Use History: None Reported - Past Family History Mother Family Medical History: Hypertension Father Family Medical History: Hypertension General Exam Limitations: no limitations General appearance: alert, in no apparent distress Head exam: Present: atraumatic, normocephalic Eye exam: Present: normal appearance. Absent: scleral icterus, conjunctival injection ENT exam: Present: normal oropharynx Neck exam: Present: normal inspection, full ROM Respiratory exam: Present: normal lung sounds bilaterally. Absent: respiratory distress, wheezes, rales, rhonchi, stridor Cardiovascular Exam: Present: regular rate, normal rhythm, normal heart sounds. Absent: systolic murmur, diastolic murmur, rubs, gallop GI/Abdominal exam: Present: soft. Absent: distended, tenderness, guarding, rebound, rigid, mass Extremities exam: Present: normal inspection, normal capillary refill. Absent: pedal edema, calf tenderness Back exam: Present: normal inspection. Absent: CVA tenderness (R), CVA tenderness (L) Neurological exam: Present: alert Skin exam: Present: warm, dry, intact, normal color. Absent: rash Course Vital Signs 03/03/23 03/04/23 03/04/23 20:50 00:00 01:27 Temperature 98.1 F 98.3 F Pulse Rate 89 75 79 Respiratory 18 16 18 Rate Blood Pressure 132/80 122/80 122/87 O2 Sat by Pulse 100 95 97 Oximetry EKG Findings - EKG Results: EKG: interpreted by ERMAndrea, sinus rhythm (Rate 62 bpm), normal axis, normal QRS, normal ST/T, no acute changes Medical Decision Making - Medical Decision Making Was pt. sent in by a medical professional or institution (, PA, RN ORTHO, urgent care, hospital, or penitentiary...) When possible be specific @ -[No] Did you speak to anyone other than the patient for history (EMS, parent, family, police, friend...)? What history was obtained from this source @ -[No] Did you review nursing and triage notes (agree or disagree)? Why? @ -[I reviewed and agree with nursing and triage notes] Were old charts reviewed (outside hosp., previous admission, EMS record, old EKG, old radiological studies, urgent care reports/EKG's, penitentiary records)? Report findings @ -[No old charts were reviewed] Differential Diagnosis (chest pain, altered mental status, abdominal pain women, abdominal pain men, vaginal bleeding, weakness, fever, dyspnea, syncope, headache, dizziness, GI bleed, back pain, seizure, CVA, palpatations, mental health, musculoskeletal)? @ -[Differential diagnosis for the patient's hyperglycemia includes a medical noncompliance, dietary noncompliance, acute DKA, infection, PR EKG interpreted by me (3pts min.). @ -[As above] X-rays interpreted by me (1pt min.). @ -[None done] CT interpreted by me (1pt min.). @ -[None done] U/S interpreted by me (1pt. min.). @ -[None done] What testing was considered but not performed or refused? (CT, X-rays, U/S, labs)? Why? @ -[None] What meds were considered but not given or refused? Why? @ -[None] Did you discuss the management of the patient with other professionals (casey ramsay i.e. , PA, RN ORTHO, lab, RT, psych nurse, social service coordinator, talent coordinator, teacher, radio electronics officer, immigration case worker)? Give summary @ -[No] Was smoking cessation discussed for >3mins.? @ -[No] Was critical care preformed (if so, how long)? @ -[No] Were there social determinants of health that impacted care today? How? (Homelessness, low income, unemployed, alcoholism, drug addiction, transpor tation, low edu. Level, literacy, decrease access to med. care, [facility], rehab)? @ -[No] Was there de-escalation of care discussed even if they declined (Discuss DNR or withdrawal of care, Hospice)? DNR status @ -[No] What co-morbidities impacted this encounter? (DM, HTN, Smoking, COPD, CAD, Cancer, CVA, ARF, Chemo, Hep., AIDS, mental health diagnosis, sleep apnea, morbid obesity)? @ -[None] Was patient admitted / discharged? Hospital course, mention meds given and route, prescriptions, significant lab abnormalities, going to OR and other pertinent info. @ -[Patient's hyperglycemia has improved with treatment and will be discharged, discussed appropriate further care and follow-up Undiagnosed new problem with uncertain prognosis? @ -[No] Drug Therapy requiring intensive monitoring for toxicity (Heparin, Nitro, Insulin, Cardizem)? @ -[No] Were any procedures done? @ -[No] Diagnosis/symptom? @ -[Acute hyperglycemia and diabetic patient Acute, or Chronic, or Acute on Chronic? @ -[default] Uncomplicated (without systemic symptoms) or Complicated (systemic symptoms)? @ -[Uncomplicated Side effects of treatment? @ -[No] Exacerbation, Progression, or Severe Exacerbation? @ -[No] Poses a threat to life or bodily function? How? (Chest pain, [place], [place], pneumonia, PE, COPD, DKA, ARF, appy, cholecystitis, CVA, Diverticulitis, Homicidal, Maen icidal, threat to staff... and all critical care pts) @ -[No] - Lab Data Result diagrams: 03/03/23 22:25 03/04/23 00:17 Lab Results 03/03/23 03/03/23 03/03/23 Range/Units 20:55 22:25 22:25 WBC 12.4 H (3.8-10.6) k/uL RBC 4.44 (4.30-5.90) m/uL Hgb 14.5 (13.0-17.5) gm/dL Hct 43.4 (39.0-53.0) % MCV 97.9 (80.0-100.0) fL MCH 32.6 (25.0-35.0) pg MCHC 33.3 (31.0-37.0) g/dL RDW 13.1 (11.5-15.5) % Plt Count 312 (150-450) k/uL MPV 8.4 Neutrophils % 69 % Lymphocytes % 20 % Monocytes % 6 % Eosinophils % 3 % Basophils % 0 % Neutrophils # 8.5 H (1.3-7.7) k/uL Lymphocytes # 2.5 (1.0-4.8) k/uL Monocytes # 0.7 (0-1.0) k/uL Eosinophils # 0.4 (0-0.7) k/uL Basophils # 0.0 (0-0.2) k/uL Sodium (137-145) mmol/L Potassium (3.5-5.1) mmol/L Chloride (98-107) mmol/L Carbon Dioxide (22-30) mmol/L Anion Gap mmol/L BUN (9-20) mg/dL Creatinine (0.66-1.25) mg/dL Est GFR (CKD-EPI)AfAm (>60 ml/min/1.73 sqM) Est GFR (CKD-EPI)NonAf (>60 ml/min/1.73 sqM) Glucose (74-99) mg/dL POC Glucose (mg/dL) 464 H (70-110) mg/dL POC Glu Director Of Dementia Operations ID Paige Perdomo Calcium (8.4-10.2) mg/dL Total Bilirubin (0.2-1.3) mg/dL AST (17-59) U/L ALT (4-49) U/L Alkaline Phosphatase (38-126) U/L Troponin I (0.000-0.034) ng/mL Total Protein (6.3-8.2) g/dL Albumin (3.5-5.0) g/dL Urine Color Light Yellow Urine Appearance Clear (Clear) Urine pH 6.5 (5.0-8.0) Ur Specific [place] 1.028 (1.001-1.035) Urine Protein Negative (Negative) Urine Glucose (UA) 4+ H (Negative) Urine Ketones Negative (Negative) Urine Blood Negative (Negative) Urine Nitrite Negative (Negative) Urine Bilirubin Negative (Negative) Urine Urobilinogen <2.0 (<2.0) mg/dL Ur Leukocyte Esterase Negative (Negative) Acetone, Qual (Negative) 03/03/23 03/03/23 03/03/23 Range/Units 22:25 22:25 23:20 WBC (3.8-10.6) k/uL RBC (4.30-5.90) m/uL Hgb (13.0-17.5) gm/dL Hct (39.0-53.0) % MCV (80.0-100.0) fL MCH (25.0-35.0) pg MCHC (31.0-37.0) g/dL RDW (11.5-15.5) % Plt Count (150-450) k/uL MPV Neutrophils % % Lymphocytes % % Monocytes % % Eosinophils % % Basophils % % Neutrophils # (1.3-7.7) k/uL Lymphocytes # (1.0-4.8) k/uL Monocytes # (0-1.0) k/uL Eosinophils # (0-0.7) k/uL Basophils # (0-0.2) k/uL Sodium 130 L (137-145) mmol/L Potassium 4.6 (3.5-5.1) mmol/L Chloride 97 L (98-107) mmol/L Carbon Dioxide 22 (22-30) mmol/L Anion Gap 11 mmol/L BUN 17 (9-20) mg/dL Creatinine 0.47 L (0.66-1.25) mg/dL Est GFR (CKD-EPI)AfAm >90 (>60 ml/min/1.73 sqM) Est GFR (CKD-EPI)NonAf >90 (>60 ml/min/1.73 sqM) Glucose 416 H (74-99) mg/dL POC Glucose (mg/dL) 274 H (70-110) mg/dL POC Glu Director Of Dementia Operations RADHA Fiona Escobar Calcium 9.6 (8.4-10.2) mg/dL Total Bilirubin 0.2 (0.2-1.3) mg/dL AST 27 (17-59) U/L ALT 32 (4-49) U/L Alkaline Phosphatase 77 (38-126) U/L Troponin I <0.012 (0.000-0.034) ng/mL Total Protein 6.3 (6.3-8.2) g/dL Albumin 3.7 (3.5-5.0) g/dL Urine Color Urine Appearance (Clear) Urine pH (5.0-8.0) Ur Specific [place] (1.001-1.035) Urine Protein (Negative) Urine Glucose (UA) (Negative) Urine Ketones (Negative) Urine Blood (Negative) Urine Nitrite (Negative) Urine Bilirubin (Negative) Urine Urobilinogen (<2.0) mg/dL Ur Leukocyte Esterase (Negative) Acetone, Qual Positive (Negative) 03/04/23 Range/Units 00:17 WBC (3.8-10.6) k/uL RBC (4.30-5.90) m/uL Hgb (13.0-17.5) gm/dL Hct (39.0-53.0) % MCV (80.0-100.0) fL MCH (25.0-35.0) pg MCHC (31.0-37.0) g/dL RDW (11.5-15.5) % Plt Count (150-450) k/uL MPV Neutrophils % % Lymphocytes % % Monocytes % % Eosinophils % % Basophils % % Neutrophils # (1.3-7.7) k/uL Lymphocytes # (1.0-4.8) k/uL Monocytes # (0-1.0) k/uL Eosinophils # (0-0.7) k/uL Basophils # (0-0.2) k/uL Sodium 133 L (137-145) mmol/L Potassium 4.4 (3.5-5.1) mmol/L Chloride 101 (98-107) mmol/L Carbon Dioxide 25 (22-30) mmol/L Anion Gap 7 mmol/L BUN 15 (9-20) mg/dL Creatinine 0.40 L (0.66-1.25) mg/dL Est GFR (CKD-EPI)AfAm >90 (>60 ml/min/1.73 sqM) Est GFR (CKD-EPI)NonAf >90 (>60 ml/min/1.73 sqM) Glucose 253 H (74-99) mg/dL POC Glucose (mg/dL) (70-110) mg/dL POC Glu Director Of Dementia Operations ID Calcium 8.7 (8.4-10.2) mg/dL Total Bilirubin 0.3 (0.2-1.3) mg/dL AST 25 (17-59) U/L ALT 29 (4-49) U/L Alkaline Phosphatase 57 (38-126) U/L Troponin I (0.000-0.034) ng/mL Total Protein 5.9 L (6.3-8.2) g/dL Albumin 3.3 L (3.5-5.0) g/dL Urine Color Urine Appearance (Clear) Urine pH (5.0-8.0) Ur Specific [place] (1.001-1.035) Urine Protein (Negative) Urine Glucose (UA) (Negative) Urine Ketones (Negative) Urine Blood (Negative) Urine Nitrite (Negative) Urine Bilirubin (Negative) Urine Urobilinogen (<2.0) mg/dL Ur Leukocyte Esterase (Negative) Acetone, Qual Positive (Negative) Disposition Clinical Impression: Hyperglycemia Disposition: HOME SELF-CARE Condition: Good Instructions (If sedation given, give patient instructions): Diabetic Hyperglycemia (ED) Is patient prescribed a controlled substance at d/c from ED?: No Referrals: Brandon Cesar DO [Primary Care Provider] - 1-2 days
[2023-03-04 01:29] VITALS: BP 122/87; PULSE 79; RESP 18; TEMP 98.3
== END 2023-03-04 01:29 | disposition home or self-care (01) ==
LOC: EC 20:47
DX: E11.65 Type 2 diabetes mellitus with hyperglycemia (principal); I10 Essential (primary) hypertension; F32.A Depression, unspecified; Z79.899 Other long term (current) drug therapy
CPT/HCPCS: 36415; 80053; 81003; 82009; 84484; 85025; 93005; 96360; 96361; 99285

== ENCOUNTER 2023-04-07 20:46 | Observation (INO) | payer OTHER ==
[2023-04-07] MEDS ORDERED: SODIUM CHLORIDE 0.9% 1,000 ML IV STA (21:52)
--- NOTE | 2023-04-07 22:08 | ED ---
General Adult HPI - General Chief complaint: Alcohol Stated complaint: Detox Time Seen by Provider: 04/07/23 21:48 Source: patient Mode of arrival: ambulatory Limitations: no limitations - History of Present Illness Initial comments: Patient presents to the ED with his mother for evaluation. Patient states that he was attempting to alcohol detox himself, but in doing so, has developed significant symptoms. Patient states that he normally drinks about 2 pints of vodka daily, and he states that his last drink was at about 0100 this morning. Patient states that he has developed symptoms of "shakiness", nausea and vomiting and dry mouth. Patient states that he has had a seizure in the past when attempting to alcohol detox. Patient denies having a seizure today. Patient denies hallucinations, trauma or injury, any pain, fever, headache, focal neuro deficit, chest pain or pressure, dyspnea, cough or cold symptoms, palpitations, syncope, abdominal pain, diarrhea or constipation, bloody or melanotic stool, hematemesis, dysuria or urinary symptoms, suicidal ideations, illicit drug use, medication abuse/overdose, or any other symptoms or com plaints. - Related Data Home Medications Medication Instructions Recorded Confirmed Escitalopram Oxalate [Lexapro] 10 mg PO DAILY 01/24/23 04/07/23 Naltrexone HCl [Revia] 50 mg PO DAILY 01/24/23 04/07/23 Propranolol [Inderal] 20 mg PO HS 01/24/23 04/07/23 Thiamine [Vitamin B-1] 100 mg PO DAILY 01/24/23 04/07/23 hydroCHLOROthiazide 12.5 mg PO DAILY 01/24/23 04/07/23 Folic Acid 1 mg PO DAILY 04/07/23 04/07/23 Insulin Aspart [NovoLOG Flexpen] 5 units SQ AC-TID 04/07/23 04/07/23 Insulin Degludec [Tresiba 20 units SQ HS 04/07/23 04/07/23 Flextouch U-100 Pen] Allergies Allergy/AdvReac Type Severity Reaction Status Date / Time No Known Allergies Allergy Verified 04/07/23 21:48 Review of Systems ROS Statement: Those systems with pertinent positive or pertinent negative responses have been documented in the HPI. ROS Other: All systems not noted in ROS Statement are negative. Past Medical History Past Medical History: Diabetes Mellitus, Hypertension History of Any Multi-Drug Resistant Organisms: None Reported Past Surgical History: Appendectomy, Hernia Repair Past Anesthesia/Blood Transfusion Reactions: No Reported Reaction Past Psychological History: Depression Smoking Status: Never smoker Past Alcohol Use History: Abuse, Daily, Heavy Past Drug Use History: None Reported - Past Family History Mother Family Medical History: Hypertension Father Family Medical History: Hypertension General Exam Limitations: no limitations General appearance: alert, other (Patient is tremulous in appearance) Head exam: Present: atraumatic, normocephalic Eye exam: Present: normal appearance, PERRL, EOMI ENT exam: Present: mucous membranes dry Neck exam: Present: other (Trachea is in midline) Respiratory exam: Present: normal lung sounds bilaterally. Absent: respiratory distress, wheezes, rales, rhonchi, stridor Cardiovascular Exam: Present: normal rhythm, tachycardia, normal heart sounds, other (Normal radial pulses bilaterally) GI/Abdominal exam: Present: soft. Absent: distended, tenderness, guarding Extremities exam: Absent: pedal edema Neurological exam: Present: alert, oriented X3, CN II-XII intact, other. Absent: motor sensory deficit Skin exam: Present: warm, dry, intact, normal color Course Vital Signs 04/07/23 04/07/23 04/07/23 21:04 21:47 22:00 Temperature 98.2 F Pulse Rate 158 H 98 115 H Respiratory 28 H 16 16 Rate Blood Pressure 111/77 167/109 167/109 O2 Sat by Pulse 96 94 L 94 L Oximetry 04/07/23 23:00 Temperature Pulse Rate 92 Respiratory 16 Rate Blood Pressure 161/118 O2 Sat by Pulse 94 L Oximetry - Reevaluation(s) Reevaluation #1: 04/07/23 23:48 Case, H&P, test results and ED management thus far were discussed with Dr. Arteaga. He accepts hospital admission. He has no further recommendations at this time. 04/08/23 00:05 Patient states that his symptoms have improved with the IV Ativan and IV fluids that he was given in the ED. Patient denies development of any new symptoms while in the ED. Patient's tachycardia and tremors have improved while in the ED. Patient and mother are aware the patient's test results, and they both agree with hospital admission at this time. EKG Findings - EKG Comments: EKG Findings:: ED physician interpretation (interpreted by me): Normal sinus r hythm, no ectopy, ventricular rate of 98 bpm, normal [place] and QRS intervals, normal QT interval, normal axis, nonspecific T-wave abnormality, no ST abnormality Medical Decision Making - Medical Decision Making Was pt. sent in by a medical professional or institution (RADHA Ellis, ASSISTED LIVING HOME DIRECTOR, urgent care, hospital, or usp...) When possible be specific @ -No Did you speak to anyone other than the patient for history (EMS, parent, family, police, friend...)? What history was obtained from this source @ -No Did you review nursing and triage notes (agree or disagree)? Why? @ -I reviewed and agree with nursing and triage notes Were old charts reviewed (outside hosp., previous admission, EMS record, old EKG, old radiological studies, urgent care reports/EKG's, usp records)? Report findings @ -No old charts were reviewed Differential Diagnosis (chest pain, altered mental status, abdominal pain women, abdominal pain men, vaginal bleeding, weakness, fever, dyspnea, syncope, headache, dizziness, GI bleed, back pain, seizure, CVA, palpatations, mental health, musculoskeletal)? @ -Alcohol withdrawal, alcohol intoxication, drug withdrawal, drug abuse, dehydration, lateral ligament abnormality, encephalopathy, renal failure, nausea/vomiting, viral illness, food toxicity, gastroenteritis EKG interpreted by me (3pts min.). @ -As above X-rays interpreted by me (1pt min.). @ -None done CT interpreted by me (1pt min.). @ -None done U/S interpreted by me (1pt. min.). @ -None done What testing was considered but not performed or refused? (CT, X-rays, U/S, labs)? Why? @ -None What meds were considered but not given or refused? Why? @ -None Did you discuss the management of the patient with other professionals (professionals i.e. RADHA Ellis, ASSISTED LIVING HOME DIRECTOR, lab, RT, psych nurse, manager social responsibility, staff auditor, teacher, corporate trust officer, family independence case manager)? Give summary @ -No Was smoking cessation discussed for >3mins.? @ -No Was critical care preformed (if so, how long)? @ -No Were there social determinants of health that impacted care today? How? (Homelessness, low income, unemployed, alcoholism, drug addiction, transportation, low edu. Level, literacy, decrease access to med. care, skilled nursing, rehab)? @ -No Was there de-escalation of care discussed even if they declined (Discuss DNR or withdrawal of care, Hospice)? DNR status @ -No What co-morbidities impacted this encounter? (DM, HTN, Smoking, COPD, CAD, Cancer, CVA, ARF, Chemo, Hep., AIDS, mental health diagnosis, sleep apnea, morbid obesity)? @ -None Was patient admitted / discharged? Hospital course, mention meds given and route, prescriptions, significant lab abnormalities, going to OR and other pertinent info. @ -Patient's symptoms have improved with the IV Ativan given to him in the ED. Patient is a chronic alcoholic, and he reports that his last drink was at about 0100 this morning. Will admit the patient to the hospital for alcohol withdrawal management. Patient is also noted to be hyponatremic. Patient has been treated with an IV fluid bolus in the ED, and he has been started on an IV fluid maintenance drip. Patient has also been placed under fluid restriction. Dr. Arteaga has accepted hospital admission. Undiagnosed new problem with uncertain prognosis? @ -No Drug Therapy requiring intensive monitoring for toxicity (Heparin, Nitro, Insulin, Cardizem)? @ -No Were any procedures done? @ -No Diagnosis/symptom? @ -Alcohol withdrawal] Acute, or Chronic, or Acute on Chronic? @ -Acute Uncomplicated (without systemic symptoms) or Complicated (systemic symptoms)? @ -default Side effects of treatment? @ -No Exacerbation, Progression, or Severe Exacerbation? @ -No Poses a threat to life or bodily function? How? (Chest pain, [place], [place], pneumonia, PE, COPD, DKA, ARF, appy, cholecystitis, CVA, Diverticulitis, Homicidal, Suicidal, threat to staff... and all critical care pts) @ -No Diagnosis/symptom? @ -Hyponatremia Acute, or Chronic, or Acute on Chronic? @ -default Uncomplicated (without systemic symptoms) or Complicated (systemic symptoms)? @ -default Side effects of treatment? @ -none Exacerbation, Progression, or Severe Exacerbation] @ -no Poses a threat to life or bodily function? @ -no - Lab Data Result diagrams: 04/07/23 22:02 04/07/23 22:02 Lab Results 04/07/23 04/07/23 04/07/23 Range/Units 22:02 22:02 22:02 WBC 9.3 (3.8-10.6) k/uL RBC 4.80 (4.30-5.90) m/uL Hgb 16.2 (13.0-17.5) gm/dL Hct 46.7 (39.0-53.0) % MCV 97.3 (80.0-100.0) fL MCH 33.8 (25.0-35.0) pg MCHC 34.7 (31.0-37.0) g/dL RDW 14.5 (11.5-15.5) % Plt Count 174 (150-450) k/uL MPV 9.3 Neutrophils % 79 % Lymphocytes % 10 % Monocytes % 8 % Eosinophils % 1 % Basophils % 0 % Neutrophils # 7.3 (1.3-7.7) k/uL Lymphocytes # 0.9 L (1.0-4.8) k/uL Monocytes # 0.7 (0-1.0) k/uL Eosinophils # 0.1 (0-0.7) k/uL Basophils # 0.0 (0-0.2) k/uL PT 9.8 (9.0-12.0) sec INR 0.9 (<1.2) APTT 21.1 L (22.0-30.0) sec Sodium 128 L (137-145) mmol/L Potassium 3.5 (3.5-5.1) mmol/L Chloride 85 L (98-107) mmol/L Carbon Dioxide 22 (22-30) mmol/L Anion Gap 21 mmol/L BUN 12 (9-20) mg/dL Creatinine 0.58 L (0.66-1.25) mg/dL Est GFR (CKD-EPI)AfAm >90 (>60 ml/min/1.73 sqM) Est GFR (CKD-EPI)NonAf >90 (>60 ml/min/1.73 sqM) Glucose 160 H (74-99) mg/dL Calcium 9.2 (8.4-10.2) mg/dL Total Bilirubin 2.7 H (0.2-1.3) mg/dL AST 134 H (17-59) U/L ALT 77 H (4-49) U/L Alkaline Phosphatase 133 H (38-126) U/L Total Protein 7.6 (6.3-8.2) g/dL Albumin 4.6 (3.5-5.0) g/dL Serum Alcohol 36 mg/dL Disposition Clinical Impression: Alcohol withdrawal, Hyponatremia Disposition: ADMITTED IP TO THIS HOSP Condition: Stable When asked, does pt state using other controlled substances?: No Referrals: Brandon Cesar DO [Primary Care Provider] - 1-2 days Time of Disposition: 23:50
[2023-04-07] MEDS ORDERED: LORazepam 2 MG/ML INJ IV STA (22:22)
[2023-04-07 22:43] LABS: Basophils % (A) 0 %; Eosinophils # (A) 0.1 k/uL (0-0.7); Eosinophils % (A) 1 %; HCT 46.7 % (39.0-53.0); HGB 16.2 gm/dL (13.0-17.5); Lymphocytes # (A) 0.9 k/uL (1.0-4.8); Lymphocytes % (A) 10 %; MCH 33.8 pg (25.0-35.0); MCHC 34.7 g/dL (31.0-37.0); MCV 97.3 fL (80.0-100.0); Mean Platelet Volume 9.3; Monocytes # (A) 0.7 k/uL (0-1.0); Monocytes % (A) 8 %; Neutrophils # (A) 7.3 k/uL (1.3-7.7); Neutrophils % (A) 79 %; Platelet Count 174 k/uL (150-450); RDW 14.5 % (11.5-15.5); WBC 9.3 k/uL (3.8-10.6)
[2023-04-07 22:58] LABS: INR 0.9 (<1.2); Partial Thromboplastin Time 21.1 sec (22.0-30.0); Prothrombin Time 9.8 sec (9.0-12.0)
[2023-04-07 23:00] LABS: African American GFR (CKD) >90 (>60 ml/min/1.73 sqM); Albumin 4.6 g/dL (3.5-5.0); Carbon Dioxide 22 mmol/L (22-30); Non-African American GFR(CKD) >90 (>60 ml/min/1.73 sqM); Total Protein 7.6 g/dL (6.3-8.2)
[2023-04-07 23:01] LABS: ALT 77 U/L (4-49); AST 134 U/L (17-59); Alcohol 36 mg/dL; Alkaline Phosphatase 133 U/L (38-126); Anion Gap 21 mmol/L; Blood Urea Nitrogen 12 mg/dL (9-20); Calcium 9.2 mg/dL (8.4-10.2); Chloride 85 mmol/L (98-107); Glucose 160 mg/dL (74-99); Potassium 3.5 mmol/L (3.5-5.1); Sodium 128 mmol/L (137-145); Total Bilirubin 2.7 mg/dL (0.2-1.3)
[2023-04-07] MEDS ORDERED: THIAMINE 100 MG/ML 2 ML VIAL IM STA (23:31)
[2023-04-07] MEDS ORDERED: LORazepam 2 MG/ML INJ IV PRN ×3 (23:31)
[2023-04-07] MEDS ORDERED: ONDANSETRON 4 MG/2 ML VIAL IVP PRN (23:41)
[2023-04-07] MEDS ORDERED: NALOXONE 0.4 MG/ML 1 ML VIAL IV PRN (23:41)
[2023-04-08 01:18] LABS: Amphetamine Screen,Urine Not Detected (NotDetected); Barbiturate Screen,Urine Not Detected (NotDetected); Benzodiazepines Screen,Urine Not Detected (NotDetected); Cocaine Screen,Urine Not Detected (NotDetected); Methadone Screen, Urine Not Detected (NotDetected); Opiate Screen,Urine Not Detected (NotDetected); Oxycodone Screen, Urine Detected (NotDetected); Phencyclidine Screen,Urine Not Detected (NotDetected); Tricyclic Antidepressant,Urine Not Detected (NotDetected); Urn Cannabinoid Scrn Not Detected (NotDetected)
[2023-04-08 03:57] LABS: Glucose,Whole Blood 129 mg/dL (70-110)
--- NOTE | 2023-04-08 03:58 | P.HPIM ---
History of Present Illness H&P Date: 04/08/23 Patient is a 47-year-old male with a PMH of EtOH abuse with history of delirium tremens and alcohol withdrawal seizures, type II DM, and hypertension who presents to the emergency room with complaints of alcohol withdrawal. Patient reports that he has been drinking 2 pints of hard liquor daily for the past several months, and decided to quit with his last drink at midnight. Reports gradually worsening tremors as well as nausea with multiple episodes of nonbloody emesis. Denied experienced chest discomfort or shortness of breath. Denied fever, chills, cough. EKG in emergency room revealed sinus rhythm at 98 bpm with diffuse T-wave flattening. Laboratory evaluation was remarkable for sodium 128, chloride 85, total bilirubin 2.7, AST 134, ALT 77. ED documentation reviewed and case discussed with ED provider. Review of systems: Pertinent positives and negatives as discussed in HPI, a complete review of systems was performed and all other systems are negative. Physical examination: Vital signs reviewed General: non toxic, no distress, appears at stated age, normal weight, tremulous Derm: no unusual rashes/lesions, warm Head: atraumatic, normocephalic, symmetric Eyes: EOMI, no lid lag, anicteric sclera, pupils equal round reactive to light ENT: Nose and ears atraumatic Neck: No cervical lymphadenopathy, trachea midline, supple Mouth: no lip lesion, mucus membranes moist, tongue fasciculations noted Cardiovascular: S1S2 reg, no murmur, positive dorsalis pedis pulse bilateral, no edema Lungs: CTA bilateral, no rhonchi, no rales, no accessory muscle use Abdominal: soft, nontender to palpation, no guarding Ext: muscle strength 5 out of 5 in all 4 extremities grossly, no gross muscle atrophy, no contractures, Neuro: CN II-XI grossly intact, no gross focal neuro deficits Psych: Alert, oriented, appropriate affect Assessment: Alcohol withdrawal Hypochloremic hyponatremia, likely due to poor oral intake due to ongoing alcohol use Chronic conditions: Type II DM, hypertension Imaging: EKG in emergency room revealed sinus rhythm at 98 bpm with diffuse T-wave flattening. Data Review: Laboratory evaluation was remarkable for sodium 128, chloride 85, total bilirubin 2.7, AST 134, ALT 77. Plan: CIWA protocol with Ativan IVP Cardiac monitoring IV fluids with normal saline Continue thiamine Insulin sliding scale blood glucose monitoring DVT prophylaxis: Lovenox subq The patient is admitted with an anticipated less than 2 midnight stay for evaluation of EtOH CODE STATUS: Full Code Discussed with: Patient Anticipated discharge place: Home Past Medical History Past Medical History: Diabetes Mellitus, Hypertension History of Any Multi-Drug Resistant Organisms: None Reported Past Surgical History: Appendectomy, Hernia Repair Past Anesthesia/Blood Transfusion Reactions: No Reported Reaction Past Psychological History: Depression Smoking Status: Never smoker Past Alcohol Use History: Abuse, Daily, Heavy Past Drug Use History: None Reported - Past Family History Mother Family Medical History: Hypertension Father Family Medical History: Hypertension Medications and Allergies Home Medications Medication Instructions Recorded Confirmed Type Escitalopram Oxalate [Lexapro] 10 mg PO DAILY 01/24/23 04/07/23 History Naltrexone HCl [Revia] 50 mg PO DAILY 01/24/23 04/07/23 History Propranolol [Inderal] 20 mg PO HS 01/24/23 04/07/23 History Thiamine [Vitamin B-1] 100 mg PO DAILY 01/24/23 04/07/23 History hydroCHLOROthiazide 12.5 mg PO DAILY 01/24/23 04/07/23 History Folic Acid 1 mg PO DAILY 04/07/23 04/07/23 History Insulin Aspart [NovoLOG Flexpen] 5 units SQ AC-TID 04/07/23 04/07/23 History Insulin Degludec [Tresiba 20 units SQ HS 04/07/23 04/07/23 History Flextouch U-100 Pen] Allergies Allergy/AdvReac Type Severity Reaction Status Date / Time No Known Allergies Allergy Verified 04/07/23 21:48 Physical Exam Vitals: Vital Signs Temp Pulse Resp BP Pulse Ox 04/08/23 03:00 101 H 16 152/99 95 04/08/23 02:00 103 H 18 122/90 93 L 04/08/23 01:00 99 142/87 94 L 04/08/23 00:00 100 141/90 94 L 04/07/23 23:07 98 147/90 94 L 04/07/23 23:00 92 16 161/118 94 L 04/07/23 22:00 115 H 16 167/109 94 L 04/07/23 21:47 98 16 167/109 94 L 04/07/23 21:04 98.2 F 158 H 28 H 111/77 96 Intake and Output 04/07/23 04/07/23 04/08/23 14:59 22:59 06:59 Other: Weight 86.183 kg Results CBC & Chem 7: 04/07/23 22:02 04/07/23 22:02 Labs: Abnormal Lab Results - Last 24 Hours (Table) 04/07/23 04/07/23 04/07/23 Range/Units 22:02 22:02 22:02 Lymphocytes # 0.9 L (1.0-4.8) k/uL APTT 21.1 L (22.0-30.0) sec Sodium 128 L (137-145) mmol/L Chloride 85 L (98-107) mmol/L Creatinine 0.58 L (0.66-1.25) mg/dL Glucose 160 H (74-99) mg/dL POC Glucose (mg/dL) (70-110) mg/dL Total Bilirubin 2.7 H (0.2-1.3) mg/dL AST 134 H (17-59) U/L ALT 77 H (4-49) U/L Alkaline Phosphatase 133 H (38-126) U/L Ur Oxycodone Screen (NotDetected) 04/08/23 04/08/23 Range/Units 00:12 03:53 Lymphocytes # (1.0-4.8) k/uL APTT (22.0-30.0) sec Sodium (137-145) mmol/L Chloride (98-107) mmol/L Creatinine (0.66-1.25) mg/dL Glucose (74-99) mg/dL POC Glucose (mg/dL) 129 H (70-110) mg/dL Total Bilirubin (0.2-1.3) mg/dL AST (17-59) U/L ALT (4-49) U/L Alkaline Phosphatase (38-126) U/L Ur Oxycodone Screen Detected H (NotDetected)
[2023-04-08 05:17] LABS: Basophils % (A) 0 %; Eosinophils # (A) 0.1 k/uL (0-0.7); Eosinophils % (A) 1 %; HCT 40.2 % (39.0-53.0); HGB 13.8 gm/dL (13.0-17.5); Lymphocytes # (A) 1.3 k/uL (1.0-4.8); Lymphocytes % (A) 13 %; MCH 33.8 pg (25.0-35.0); MCHC 34.5 g/dL (31.0-37.0); MCV 98.1 fL (80.0-100.0); Mean Platelet Volume 8.9; Monocytes # (A) 0.7 k/uL (0-1.0); Monocytes % (A) 7 %; Neutrophils # (A) 7.7 k/uL (1.3-7.7); Neutrophils % (A) 78 %; Platelet Count 107 k/uL (150-450); RDW 14.4 % (11.5-15.5)
[2023-04-08] MEDS: INSULIN ASPART (NovoLOG) 100 UNIT/ML VIAL SQ SCH ×4 (07:18→21:19)
[2023-04-08 08:34] LABS: Magnesium 1.6 mg/dL (1.5-2.4)
[2023-04-08 09:10] LABS: ALT 64 U/L (10-49); AST 77 U/L (14-35); Alkaline Phosphatase 115 U/L (41-126); Blood Urea Nitrogen 11.8 mg/dL (9.0-27.0); Carbon Dioxide 29.6 mmol/L (21.6-31.8); Chloride 89 mmol/L (96-109); Glucose 176 mg/dL (70-110); Potassium 3.3 mmol/L (3.5-5.5); Sodium 133 mmol/L (135-145); Total Bilirubin 2.6 mg/dL (0.3-1.2); Total Protein 6.1 d/dL (6.2-8.2)
[2023-04-08] MEDS: THIAMINE 100 MG TAB PO SCH (09:49)
[2023-04-08] MEDS: ESCITALOPRAM 10 MG TAB PO SCH (09:49)
[2023-04-08] MEDS: NALTREXONE HCL 50 MG TAB PO SCH (09:49)
[2023-04-08] MEDS: ENOXAPARIN 40 MG/0.4 ML SYRINGE SQ SCH (09:49)
[2023-04-08] MEDS: FOLIC ACID 1 MG TAB PO SCH (09:49)
[2023-04-08] MEDS: SODIUM CHLORIDE 0.9% 1,000 ML IV SCH ×3 (09:50→21:20)
[2023-04-08 11:21] LABS: Glucose,Whole Blood 238 mg/dL (70-110)
[2023-04-08 16:31] LABS: Glucose,Whole Blood 182 mg/dL (70-110)
[2023-04-08] MEDS: ARTIFICIAL TEARS-HYPROMELLOSE DROPS 15 ML BTL BOTH EYES PRN ×2 (17:26→21:22)
[2023-04-08 20:04] LABS: Glucose,Whole Blood 220 mg/dL (70-110)
[2023-04-08] MEDS ORDERED: PROPRANOLOL 20 MG TAB PO SCH (21:00)
[2023-04-09] MEDS: ARTIFICIAL TEARS-HYPROMELLOSE DROPS 15 ML BTL BOTH EYES PRN ×2 (04:57→09:10)
[2023-04-09] MEDS: SODIUM CHLORIDE 0.9% 1,000 ML IV SCH (04:57)
[2023-04-09 05:46] LABS: Glucose,Whole Blood 117 mg/dL (70-110)
[2023-04-09] MEDS: INSULIN ASPART (NovoLOG) 100 UNIT/ML VIAL SQ SCH (06:45)
[2023-04-09] MEDS: NALTREXONE HCL 50 MG TAB PO SCH (09:10)
[2023-04-09] MEDS: THIAMINE 100 MG TAB PO SCH (09:10)
[2023-04-09] MEDS: ESCITALOPRAM 10 MG TAB PO SCH (09:10)
[2023-04-09] MEDS: ENOXAPARIN 40 MG/0.4 ML SYRINGE SQ SCH (09:10)
[2023-04-09] MEDS: FOLIC ACID 1 MG TAB PO SCH (09:10)
[2023-04-09 09:14] VITALS: BP 124/71; PULSE 75; RESP 19; TEMP 98.3
--- NOTE | 2023-04-09 10:33 | P.DS ---
Providers Date of admission: 04/07/23 23:41 Expected date of discharge: 04/09/23 Attending physician: Kyleigh Arteaga MD Primary care physician: Brandon Arsenio [facility] Course: Alcohol withdrawal Hypochloremic hyponatremia, likely due to poor oral intake due to ongoing alcohol use Chronic conditions: Type II DM, hypertension Hospital Course: Patient is a 47-year-old male with a PMH of EtOH abuse with history of delirium tremens and alcohol withdrawal seizures, type II DM, and hypertension who presented to the emergency room with complaints of alcohol withdrawal. EKG in emergency room revealed sinus rhythm at 98 bpm with diffuse T-wave flattening. Laboratory evaluation was remarkable for sodium 128, chloride 85, total bilirubin 2.7, AST 134, ALT 77. Pt was admitted and monitored. Treated with thiamine, MVI, folate. Withdrawal was treated with ativan PRN. Pt had well controlled withdrawal throughout the stay and did not develop DTs. He was discharged with extensive counseling on ETOH cessation - he will f/u with AA meetings for cessation. He should also f/u with PCP. Gen: awake, alert HEENT: normocephalic, atraumatic, good hearing acuity, moist mucous membranes Resp: good air exchange, breathing comfortably with no accessory muscle use CVS: good distal perfusion x 4, GI: soft, NTTP, ND : no SPT, no CVAT, chapman catheter not present MSK: no pitting edema, no clubbing Neuro: non-focal, moving all extremities Psych: cooperative, euthymic mood Patient Condition at Discharge: Good Plan - Discharge Summary New Discharge Prescriptions: Continue Thiamine [Vitamin B-1] 100 mg PO DAILY Naltrexone HCl [Revia] 50 mg PO DAILY Escitalopram Oxalate [Lexapro] 10 mg PO DAILY Insulin Aspart [NovoLOG Flexpen] 5 units SQ AC-TID Folic Acid 1 mg PO DAILY hydroCHLOROthiazide 12.5 mg PO DAILY Propranolol [Inderal] 20 mg PO HS Insulin Degludec [Tresiba Flextouch U-100 Pen] 20 units SQ HS Discharge Medication List Escitalopram Oxalate [Lexapro] 10 mg PO DAILY 01/24/23 [History] Naltrexone HCl [Revia] 50 mg PO DAILY 01/24/23 [History] Propranolol [Inderal] 20 mg PO HS 01/24/23 [History] Thiamine [Vitamin B-1] 100 mg PO DAILY 01/24/23 [History] hydroCHLOROthiazide 12.5 mg PO DAILY 01/24/23 [History] Folic Acid 1 mg PO DAILY 04/07/23 [History] Insulin Aspart [NovoLOG Flexpen] 5 units SQ AC-TID 04/07/23 [History] Insulin Degludec [Tresiba Flextouch U-100 Pen] 20 units SQ HS 04/07/23 [History] Follow up Appointment(s)/Referral(s): Brandon Cesar DO [Primary Care Provider] - 1-2 days Discharge/Stand Alone Forms: AA Meetings [facility], [facility] Substance Abuse Facilities Discharge Disposition: HOME SELF-CARE
== END 2023-04-09 11:58 | disposition home or self-care (01) ==
LOC: EC 20:46 → 6NMEDSUR 23:41 → 4SSUR 04-08 02:39
PROVIDERS: ADMIT Internal Medicine; ATTEND Internal Medicine
DX: F10.239 Alcohol dependence with withdrawal, unspecified (principal); E87.1 Hypo-osmolality and hyponatremia; E87.8 Other disorders of electrolyte and fluid balance, not elsewhere classified; E11.9 Type 2 diabetes mellitus without complications; I10 Essential (primary) hypertension; F32.A Depression, unspecified; Y90.1 Blood alcohol level of 20-39 mg/100 ml; Z79.899 Other long term (current) drug therapy; Z79.4 Long term (current) use of insulin
CPT/HCPCS: 96361 ×3; 96372 ×3; 96374; 99285; 36415; 80053 ×2; 83735; 85025 ×2; 85610; 85730; 80306; G0378 ×4; G0480; J2060; J3411; J1650 ×2; 80320